=== PATIENT | male | born 1940 | race Caucasian/White ===

== ENCOUNTER 2017-05-02 13:59 | Inpatient (IN) | payer OTHER, MEDICARE ==
[~2017-05-02] VITALS: Ht 175.3 cm; Wt 76.0 kg
--- NOTE | 2017-05-02 14:19 | EMERGENCY ROOM VISIT NOTE ---
History Report prepared by Tye: Sadaf Fisher Under the Supervision of: Dr. Charley Soto M.D. First contact with patient: 14:02 Stated Complaint: DVT??? History of Present Illness The patient is a 60 year old male who presents to the Emergency Room with complaints of a possible DVT. The patient comes from [facility]. Per family, the patient had a Doppler of his right leg at [facility] and was told he had a DVT. The patient fell on April 08 was sent to [facility] for 10 days for a traumatic eye injury and a brain bleed. After the 10 days at [facility], the patient was sent to [facility] for rehab. The patient has been at [facility] two weeks. Per family, when the patient fell he hit his eye on a metal object and then hit his head on the ground. The patient's family believes his oxygen usually runs low and they report he has no respiratory history. The patient has a history of neuropathy. Family reports the patient has not been very responsive since his fall and brain bleed. History limited secondary to the patient's mental status. Review of lab work from April 13 show normal liver enzymes. Source of History: family History Limited By: other (nonresponsive) Position: leg (right) Quality: other (DVT) Timing: other (possible) Review of Systems ROS limited secondary to the patient's mental status. Past Medical & Surgical Medical Problems: (1) BPH (benign prostatic hyperplasia) (2) Depression (3) DM type 2 (diabetes mellitus, type 2) (4) Fracture of sphenoid bone (5) HTN (hypertension) (6) Hyphema, right eye (7) Intracranial hemorrhage following injury (8) Neuropathy (9) Right orbital fracture Surgical Problems: (1) H/O laminectomy (2) History of orchiectomy, unilateral (3) S/P repair of paraesophageal hernia Family History Patient reports no known family medical history. Social History Alcohol Use: heavy Marital Status: Housing Status: lives with family, other ([facility]) Occupation Status: retired Current/Historical Medications Scheduled Allopurinol (Allopurinol), 300 MG PO DAILY Atorvastatin (Lipitor), 40 MG PO QPM Docusate Sodium (Docusate Sodium), 100 MG PO BID Gabapentin (Neurontin), 100 MG PO Q8 Levothyroxine Sodium (Synthroid), 25 MCG PO DAILY Lisinopril (Zestril), 40 MG PO DAILY Melatonin (Melatonin), 5 MG PO QPM Metoprolol Succinate (Toprol Xl), 50 MG PO DAILY Neomycin/Polymyxin/Dexameth Oph (Maxitrol Oph), 1 APPLN OPR QID Phenytoin Sodium Extended (Dilantin), 150 MG PO Q8 Tamsulosin Hcl (Flomax), 0.4 MG PO HS Thiamine Hcl (Vitamin B-1), 50 MG PO QDB Scheduled PRN Acetaminophen (Tylenol), 500 MG PO Q4 PRN for Pain Bisacodyl (Bisacodyl), 1 SUPP NJ DAILY PRN for Constipation Magnesium Hydroxide (Milk of Magnesia), 30 ML PO DAILY PRN for Constipation Oxycodone HCl (Oxycodone HCl), 5 MG PO Q4 PRN for Pain Polyethylene Glycol 3350 (Miralax), 17 GM PO QDL PRN for Constipation Sodium Phosphates (Fleet Enema Six Pack), 1 DOSE NJ DAILY PRN for Constipation Allergies Coded Allergies: No Known Allergies (Unverified , 05/02/17) Physical Exam Vital Signs Date Time Temp Pulse Resp B/P (MAP) Pulse Ox O2 Delivery O2 Flow Rate FiO2 05/02/17 18:28 85 05/02/17 18:24 79 18 138/78 95 Room Air 05/02/17 17:11 87 23 148/95 100 Room Air 05/02/17 14:47 37.7 05/02/17 14:26 36.9 88 16 132/82 96 Room Air 05/02/17 14:13 88 Physical Exam Vital signs reviewed. General: Chronically ill-appearing male, in no significant distress. HEENT: Eye patch to right eye with significant trauma to the lid that is healing , neck supple. Atraumatic. Cardiovascular: Regular rate and rhythm, no extra sounds. Pulmonary: Clear to auscultation bilaterally, normal work of breathing. Abdomen: Soft, nontender, nondistended, positive bowel sounds. Musculoskeletal: Atraumatic, no peripheral edema. Bilateral lower extremity are without heat or swelling Neurologic: Patient awake and occasionally answers simple questions, otherwise remains quiet. Skin: Warm, dry, no rash Medical Decision & Procedures ER Provider Diagnostic Interpretation: Radiology results as stated below per my review and radiologist interpretation: CHEST ONE VIEW PORTABLE FINDINGS: Incidental note is made of severe osteoarthritis of the left glenohumeral joint with narrowing of the subacromial space. Lung volumes are mildly diminished. No pneumothorax or pleural effusion is identified. No consolidation is identified. Patient is mildly rotated. Cardiomediastinal silhouette is unremarkable. There is no evidence of pulmonary edema. IMPRESSION: No acute cardiopulmonary findings. Electronically signed by: eMlecio Blanco M.D. CT SCAN OF THE BRAIN WITHOUT IV CONTRAST FINDINGS: Brain parenchyma: Low-attenuation is identified within the right frontal lobe posterior to the right orbit. There are age-related involutional changes noting mild subcortical and periventricular microangiopathic change. There is no hemorrhage, mass effect, or evidence of acute territorial ischemia by CT criteria. Henderson-white matter is preserved. No extra-axial fluid collection is seen. Ventricles, sulci, cisterns: Prominent secondary to involutional change. Intracranial vasculature: There is atherosclerotic calcification of the cavernous carotid and vertebral arteries. Calvarium: The skeletal structures are osteopenic. No depressed calvarial fracture is seen. Sinuses and mastoids: Trace mucosal thickening is seen in the left maxillary antrum and the ethmoid sinuses. The remaining visualized paranasal sinuses are clear. The mastoid air cells are well pneumatized. Orbits: There is an age indeterminant and possibly subacute comminuted fracture of the left orbit with posteriorly displaced fragments. The left bony orbit is grossly intact. IMPRESSION: 1. There is no hemorrhage, mass effect, or evidence of acute territorial ischemia by CT criteria. 2. There is an age indeterminant and possibly subacute comminuted fracture of the right posterior orbit with posteriorly distracted fragments. 3. There is low-attenuation identified within the right frontal lobe posterior to the right orbit, likely representing encephalomalacia. Correlation with the clinical findings and medical history will be required. Electronically signed by: Jeff Chamberlain M.D. BILIARY ULTRASOUND CLINICAL HISTORY: Elevated liver enzymes. History of ethanol abuse. COMPARISON STUDY: No previous studies for comparison. FINDINGS: The pancreas was nonvisualized. The gallbladder was difficult to visualize. No definite calculi were delineated. There is no right-sided hydronephrosis. There is renal cortical thinning. The liver is of increased echogenicity with poor through transmission. The study was very limited from a technical standpoint. The patient was uncooperative and would not perform breath-hold maneuvers or roll into the decubitus position IMPRESSION: 1. Significantly limited study from a technical standpoint. 2. Nonvisualization of the pancreas 3. Poorly visualized gallbladder but no calculi identified 4. No ductal dilatation Electronically signed by: Lion Britt M.D. ULTRASOUND VENOUS DOPPLER LWR EXT BILA FINDINGS: On the left, no thrombus is visualized. The common femoral superficial femoral popliteal and proximal trifurcation veins appear patent. On the right. The common femoral and superficial femoral veins appear patent. There is nonocclusive thrombus within the popliteal vein. There is occlusive thrombus within the posterior tibial and peroneal veins of the right calf. IMPRESSION: 1. Acute right lower extremity DVT with involvement of the popliteal vein, posterior tibial vein, and peroneal veins. Electronically signed by: Lion Britt M.D. Laboratory Results Test 05/02/17 14:30 05/02/17 15:28 05/02/17 15:37 Influenza Type A Antigen Neg for Influ A (NEG) Influenza Type B Antigen Neg for Influ B (NEG) Prothrombin Time 10.7 SECONDS (9.0-12.0) Prothromb Time International Ratio 1.0 (0.9-1.1) Magnesium Level 2.3 mg/dl (1.8-2.4) Direct Bilirubin 0.1 mg/dl (0-0.2) Total Creatine Kinase 42 U/L (39-308) Creatine Kinase MB 1.4 ng/ml (0.5-3.6) Creatine Kinase MB Ratio 3.3 (0-3.0) Troponin I < 0.015 ng/ml (0-0.045) Bedside Lactic Acid Venous 1.49 mmol/L (0.90-1.70) Laboratory results per my review. Medications Administered Medications (Trade) Dose Ordered Sig/Jay Route Start Time Stop Time Status Last Admin Dose Admin Sodium Chloride 500 ml @ 999 mls/hr Q31M STAT IV 05/02/17 16:17 05/02/17 16:47 DC 05/02/17 17:16 999 MLS/HR ECG Indication: weakness Rate (beats per minute): 87 Rhythm: normal sinus Findings: no acute ischemic change, no ectopy ED Course 1403: Past medical records reviewed. The patient was evaluated in room C5. A complete history and physical examination was performed. 1424: I reviewed the patient's case with Dr. Ángel Kasper. 1617: Ordered Sodium Chloride 500 ml @ 999 mls/hr IV 1634: Bedside discussion with the patient's family. Per , prior to his fall , the patient would drink a beer and 2-4 mixed drinks a night. Review of lab work from April 13 show normal liver enzymes. 172: I reviewed the patient's case with Jessica Araiza. She will evaluate the patient for further management. Medical Decision DDx: Influenza, other viral illness, pneumonia, urinary tract infection, metabolic abnormality, medication effect, cellulitis, meningitis, intra-abdominal source. This patient was evaluated and appeared to be in no significant distress. Patient is not responsive verbally however will state that he has "had better days." The patient's physical exam is significant for healing trauma to the face. Head CT reveals no evidence of acute intracranial hemorrhage. Right lower extremity ultrasound is significant for DVT. Patient has no signs of a central PE. Vital signs are stable and he is oxygenating well. Chest x-ray is clear. The patient is noted to have elevated liver enzymes which according to previous laboratory work obtained from the outside facility, is new. Patient does have some reported alcohol dependency according to his . Ultrasound of right upper quadrant is read as above. There is no evidence of acute process. Due to the patient's recent head trauma, no anticoagulation will be started in the emergency department. Patient may require an IVC filter if anticoagulation is not an option. The internal medicine service has been consulted for further management. The patient and family are aware of the plan and agree. Medication Reconcilliation Current Medication List: was personally reviewed by me Blood Pressure Screening Patient's blood pressure: Elevated blood pressure Blood pressure disposition: Referred to PCP (evaluated by hospitalist) Consults Time Called: 1422 Consulting Physician: Dr. Ángel Kasper Returned Call: 1424 I reviewed the patient's case with Dr. Ángel Kasper. Additional Consults: Time Called: 1721 Consulted Physician: Jessica Araiza Returned Call: 1726 Additional Comments: I reviewed the patient's case with Jessica Araiza. She will evaluate the patient for further management. Impression Primary Impression: DVT (deep venous thrombosis) Additional Impressions: History of intracranial hemorrhage Elevated liver enzymes Scribe Attestation The scribe's documentation has been prepared under my direction and personally reviewed by me in its entirety. I confirm that the note above accurately reflects all work, treatment, procedures, and medical decision making performed by me. Departure Information Dispostion Being Evaluated By Hospitalist Problem Qualifiers
--- NOTE | 2017-05-02 14:50 | DIAGNOSTIC IMAGING REPORT ---
CHEST ONE VIEW PORTABLE CLINICAL HISTORY: Fever. COMPARISON STUDY: No previous studies for comparison. FINDINGS: Incidental note is made of severe osteoarthritis of the left glenohumeral joint with narrowing of the subacromial space. Lung volumes are mildly diminished. No pneumothorax or pleural effusion is identified. No consolidation is identified. Patient is mildly rotated. Cardiomediastinal silhouette is unremarkable. There is no evidence of pulmonary edema. IMPRESSION: No acute cardiopulmonary findings. Electronically signed by: Melecio Blanco M.D. 05/02/2017 2:49 PM Dictated Date/Time: 05/02/2017 2:48 PM
[2017-05-02] MEDS ORDERED: METO-217 PO (15:43)
[2017-05-02] MEDS ORDERED: LISI-725 PO (15:43)
[2017-05-02] MEDS ORDERED: RXC5 PO (15:43)
[2017-05-02] MEDS ORDERED: ACET-1256 PO (15:43)
[2017-05-02] MEDS ORDERED: GABA-112 PO ×2 (15:43→19:21)
[2017-05-02] MEDS ORDERED: MOMLX PO (15:43)
[2017-05-02] MEDS ORDERED: ALL300 PO (15:43)
[2017-05-02] MEDS ORDERED: SENN-65 PO (15:43)
[2017-05-02] MEDS ORDERED: PHEN-310 PO (15:43)
[2017-05-02] MEDS ORDERED: LEVO25TA PO (15:43)
[2017-05-02] MEDS ORDERED: SODI1ENE PR (15:43)
[2017-05-02] MEDS ORDERED: ATOR-24 PO (15:43)
[2017-05-02] MEDS ORDERED: TAMS0.4C38 PO (15:43)
[2017-05-02] MEDS ORDERED: BISA10SU5 PR (15:43)
[2017-05-02] MEDS ORDERED: MELA1TAB54 PO (15:43)
[2017-05-02] MEDS ORDERED: POLY335019 PO (15:43)
[2017-05-02] MEDS ORDERED: CLC100X PO (15:43)
[2017-05-02] MEDS ORDERED: THIA100T11 PO (15:43)
[2017-05-02] MEDS ORDERED: AMT25 PO (15:44)
[2017-05-02 15:52] LABS: BASO % 0.7 %; BASO ABS # 0.03 K/uL (0-0.2); EOS ABS # 0.04 K/uL (0-0.5); HEMOGLOBIN 12.8 g/dL (14.0-18.0); IG# 0.06 K/uL (0.00-0.02); LYMPH ABS # 0.81 K/uL (1.2-3.4); MEAN CELL VOLUME 95.4 fL (80-100); MEAN CORPUSCULAR HGB CONC 34.6 g/dl (32-36); MEAN PLATELET VOLUME 9.5 fL (7.4-10.4); MONO % 11.1 %; MONO ABS # 0.45 K/uL (0.11-0.59); NEUT % 65.7 %; NEUT ABS # 2.65 K/uL (1.4-6.5); PLATELET COUNT 151 K/uL (130-400); RED CELL DISTRIBUTION WIDTH CV 12.9 % (11.5-14.5); RED CELL DISTRIBUTION WIDTH SD 44.4 fL (36.4-46.3); WHITE BLOOD COUNT 4.04 K/uL (4.8-10.8)
--- NOTE | 2017-05-02 15:58 | DIAGNOSTIC IMAGING REPORT ---
CT SCAN OF THE BRAIN WITHOUT IV CONTRAST CLINICAL HISTORY: Head injury. COMPARISON STUDY: No priors. TECHNIQUE: Unenhanced axial CT scan of the brain is performed from the vertex to the skull base. A dose lowering technique was utilized adhering to the principles of ALARA. CT DOSE: 712.55 mGy.cm FINDINGS: Brain parenchyma: Low-attenuation is identified within the right frontal lobe posterior to the right orbit. There are age-related involutional changes noting mild subcortical and periventricular microangiopathic change. There is no hemorrhage, mass effect, or evidence of acute territorial ischemia by CT criteria. Henderson-white matter is preserved. No extra-axial fluid collection is seen. Ventricles, sulci, cisterns: Prominent secondary to involutional change. Intracranial vasculature: There is atherosclerotic calcification of the cavernous carotid and vertebral arteries. Calvarium: The skeletal structures are osteopenic. No depressed calvarial fracture is seen. Sinuses and mastoids: Trace mucosal thickening is seen in the left maxillary antrum and the ethmoid sinuses. The remaining visualized paranasal sinuses are clear. The mastoid air cells are well pneumatized. Orbits: There is an age indeterminant and possibly subacute comminuted fracture of the left orbit with posteriorly displaced fragments. The left bony orbit is grossly intact. IMPRESSION: 1. There is no hemorrhage, mass effect, or evidence of acute territorial ischemia by CT criteria. 2. There is an age indeterminant and possibly subacute comminuted fracture of the right posterior orbit with posteriorly distracted fragments. 3. There is low-attenuation identified within the right frontal lobe posterior to the right orbit, likely representing encephalomalacia. Correlation with the clinical findings and medical history will be required. Electronically signed by: Jeff Chamberlain M.D. 05/02/2017 3:57 PM Dictated Date/Time: 05/02/2017 3:48 PM
[2017-05-02 16:00] LABS: PTT PATIENT 27.2 SECONDS (21.0-31.0)
[2017-05-02 16:01] LABS: ALBUMIN 2.8 gm/dl (3.4-5.0); ALT/SGPT 165 U/L (12-78); AST/SGOT 147 U/L (15-37); BLOOD UREA NITROGEN 55 mg/dl (7-18); CALCIUM 9.4 mg/dl (8.5-10.1); CARBON DIOXIDE 22 mmol/L (21-32); CREATININE 1.41 mg/dl (0.60-1.40); GLUCOSE 127 mg/dl (70-99); POTASSIUM 4.8 mmol/L (3.5-5.1); SODIUM 129 mmol/L (136-145)
[2017-05-02 16:10] LABS: ALKALINE PHOSPHATASE 208 U/L (45-117); CKMB 1.4 ng/ml (0.5-3.6); TOTAL PROTEIN 7.7 gm/dl (6.4-8.2)
[2017-05-02] MEDS ORDERED: SODIUM CHLORIDE 0.9% 500ML 500 ML IV STA (16:17)
--- NOTE | 2017-05-02 17:03 | DIAGNOSTIC IMAGING REPORT ---
ULTRASOUND VENOUS DOPPLER LWR EXT BILA CLINICAL HISTORY: Leg swelling. Recent trauma. Prolonged hospitalization. COMPARISON STUDY: No previous studies for comparison. FINDINGS: On the left, no thrombus is visualized. The common femoral superficial femoral popliteal and proximal trifurcation veins appear patent. On the right. The common femoral and superficial femoral veins appear patent. There is nonocclusive thrombus within the popliteal vein. There is occlusive thrombus within the posterior tibial and peroneal veins of the right calf. IMPRESSION: 1. Acute right lower extremity DVT with involvement of the popliteal vein, posterior tibial vein, and peroneal veins. Electronically signed by: Lion Britt M.D. 05/02/2017 5:02 PM Dictated Date/Time: 05/02/2017 5:00 PM
--- NOTE | 2017-05-02 17:10 | DIAGNOSTIC IMAGING REPORT ---
BILIARY ULTRASOUND CLINICAL HISTORY: Elevated liver enzymes. History of ethanol abuse. COMPARISON STUDY: No previous studies for comparison. FINDINGS: The pancreas was nonvisualized. The gallbladder was difficult to visualize. No definite calculi were delineated. There is no right-sided hydronephrosis. There is renal cortical thinning. The liver is of increased echogenicity with poor through transmission. The study was very limited from a technical standpoint. The patient was uncooperative and would not perform breath-hold maneuvers or roll into the decubitus position IMPRESSION: 1. Significantly limited study from a technical standpoint. 2. Nonvisualization of the pancreas 3. Poorly visualized gallbladder but no calculi identified 4. No ductal dilatation Electronically signed by: Lion Britt M.D. 05/02/2017 5:08 PM Dictated Date/Time: 05/02/2017 5:06 PM
[2017-05-02] MEDS ORDERED: ACETAMINOPHEN 325 MG TAB PO PRN (18:45)
[2017-05-02] MEDS ORDERED: ONDANSETRON INJ 2 MG/ML 2 ML VIAL IV PRN (18:45)
[2017-05-02] MEDS ORDERED: HEPARIN IV LOW DOSE NO BOLUS SCH (18:54)
[2017-05-02] MEDS ORDERED: HEPARIN 25000 UNIT/500 ML D5W ONE (18:59)
[2017-05-02] MEDS ORDERED: [UNRECOGNIZED DRUG - CODE] OPR (19:21)
[2017-05-02] MEDS ORDERED: POLYETHYLENE (MIRALAX) 17 GM PACK PO PRN (19:30)
[2017-05-02 20:15] VITALS: BP 133/72; PULSE 86; TEMP 37.2; O2SAT 93; BMI 26.0
--- NOTE | 2017-05-02 20:27 | History and Physical ---
History & Physical Date & Time of Service: May 02, 2017 ~ 18:00 Chief Complaint: Evaluate for DVT Primary Care Physician: Harish Ernandez M.D. History of Present Illness 77 year old male who was sent to the ED from [facility] for evaluation of possible DVT. On 04/08/17 patient was intoxicated and fell into a wood stove suffering injury to his right eye. He was also found to have traumatic, IPH right frontal lobe, Scattered Subarachnoid hemorrhage, Subdural Hemorrhage along bifrontal and right temporal regions that extends into right tentorium, and intraventricular Hemorrhage. Patient was treated at [facility]. Patient developed compartment syndrome of the right eye and had to undergo emergent canthotomy. His intracranial bleeding did not require surgical intervention. He was transferred to [facility] on 04/19. Providers there were concerned that he was not progressing in therapy and was also running low grade fevers. There was suspicion for DVT so he was sent to the ED for further evaluation. At the time of my exam, patient reports he is "feeling fair." He does not provide much more history. He does not appear to be in acute distress. Family who is at the bedside reports that his mental status has been waxing and waning since the accident. In the ED, patient is found to have acute right lower extremity DVT with involvement of the popliteal vein, posterior tibial vein, and peroneal veins. He is also found to have elevated LFTs and creatinine. Vitals are stable. Patient was given IVF. 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 (7) Intracranial hemorrhage following injury Status: Chronic (8) Neuropathy Status: Chronic (9) Right orbital fracture Status: Chronic Surgical Problems: (1) H/O laminectomy Status: Chronic (2) History of orchiectomy, unilateral Status: Chronic (3) S/P repair of paraesophageal hernia Status: Chronic Family History FH: lymphoma MOTHER Renal cancer BROTHER Social History Smoking Status: Former Smoker Alcohol Use: heavy (former) Immunizations History of Influenza Vaccine: Yes Influenza Vaccine Date: Apr 07, 2017 History of Tetanus Vaccine?: Yes Tetanus Immunization Date: Apr 08, 2017 History of Pneumococcal: Yes Pneumococcal Date: Jul 23, 2015 Allergies Coded Allergies: No Known Allergies (Unverified , 05/02/17) Home Medications Scheduled Allopurinol (Allopurinol), 300 MG PO DAILY Atorvastatin (Lipitor), 40 MG PO QPM Docusate Sodium (Docusate Sodium), 100 MG PO BID Gabapentin (Neurontin), 100 MG PO Q8 Levothyroxine Sodium (Synthroid), 25 MCG PO DAILY Lisinopril (Zestril), 40 MG PO DAILY Melatonin (Melatonin), 5 MG PO QPM Metoprolol Succinate (Toprol Xl), 50 MG PO DAILY Neomycin/Polymyxin/Dexameth Oph (Maxitrol Oph), 1 APPLN OPR QID Phenytoin Sodium Extended (Dilantin), 150 MG PO Q8 Tamsulosin Hcl (Flomax), 0.4 MG PO HS Thiamine Hcl (Vitamin B-1), 50 MG PO QDB Scheduled PRN Acetaminophen (Tylenol), 500 MG PO Q4 PRN for Pain Bisacodyl (Bisacodyl), 1 SUPP FL DAILY PRN for Constipation Magnesium Hydroxide (Milk of Magnesia), 30 ML PO DAILY PRN for Constipation Oxycodone HCl (Oxycodone HCl), 5 MG PO Q4 PRN for Pain Polyethylene Glycol 3350 (Miralax), 17 GM PO QDL PRN for Constipation Sodium Phosphates (Fleet Enema Six Pack), 1 DOSE FL DAILY PRN for Constipation Review of Systems unobtainable due to patient's mental status Physical Exam Vital Signs Date Time Temp Pulse Resp B/P (MAP) Pulse Ox O2 Delivery O2 Flow Rate FiO2 05/02/17 19:47 88 18 106/79 95 Room Air 05/02/17 18:28 85 05/02/17 18:24 79 18 138/78 95 Room Air 05/02/17 17:11 87 23 148/95 100 Room Air 05/02/17 14:47 37.7 05/02/17 14:26 36.9 88 16 132/82 96 Room Air 05/02/17 14:13 88 General Appearance: WD/WN, no apparent distress Head: normocephalic, atraumatic Eyes: + pertinent finding (edema noted to right orbit, patient unable to open eye lid, small amount of drainage noted; left eye WNL) ENT: hearing grossly normal, + pertinent finding (mucous membranes moist) Neck: supple, no JVD, trachea midline Respiratory/Chest: lungs clear, normal breath sounds, no respiratory distress Cardiovascular: regular rate, rhythm, no edema, normal peripheral pulses Abdomen/GI: normal bowel sounds, non tender, soft, no organomegaly Extremities/Musculoskelatal: normal inspection, no calf tenderness, normal capillary refill Neurologic/Psych: alert (falls back to sleep quickly during exam, does not say many words), + disoriented (to time, place, and situation), + pertinent finding (no gross focal deficits noted) Skin: normal color, warm/dry Diagnostics Laboratory Results Results Past 24 Hours Test 05/02/17 14:19 05/02/17 15:28 05/02/17 15:37 Range/Units White Blood Count 4.04 4.8-10.8 K/uL Red Blood Count 3.88 4.7-6.1 M/uL Hemoglobin 12.8 14.0-18.0 g/dL Hematocrit 37.0 42-52 % Mean Corpuscular Volume 95.4 80-100 fL Mean Corpuscular Hemoglobin 33.0 25-34 pg Mean Corpuscular Hemoglobin Concent 34.6 32-36 g/dl Platelet Count 151 130-400 K/uL Mean Platelet Volume 9.5 7.4-10.4 fL Neutrophils (%) (Auto) 65.7 % Lymphocytes (%) (Auto) 20.0 % Monocytes (%) (Auto) 11.1 % Eosinophils (%) (Auto) 1.0 % Basophils (%) (Auto) 0.7 % Neutrophils # (Auto) 2.65 1.4-6.5 K/uL Lymphocytes # (Auto) 0.81 1.2-3.4 K/uL Monocytes # (Auto) 0.45 0.11-0.59 K/uL Eosinophils # (Auto) 0.04 0-0.5 K/uL Basophils # (Auto) 0.03 0-0.2 K/uL RDW Standard Deviation 44.4 36.4-46.3 fL RDW Coefficient of Variation 12.9 11.5-14.5 % Immature Granulocyte % (Auto) 1.5 % Immature Granulocyte # (Auto) 0.06 0.00-0.02 K/uL Prothrombin Time 10.7 9.0-12.0 SECONDS Prothromb Time International Ratio 1.0 0.9-1.1 Activated Partial Thromboplast Time 27.2 21.0-31.0 SECONDS Partial Thromboplastin Ratio 1.0 Sodium Level 129 136-145 mmol/L Potassium Level 4.8 3.5-5.1 mmol/L Chloride Level 99 98-107 mmol/L Carbon Dioxide Level 22 21-32 mmol/L Anion Gap 8.0 3-11 mmol/L Blood Urea Nitrogen 55 7-18 mg/dl Creatinine 1.41 0.60-1.40 mg/dl Est Creatinine Clear Calc Drug Dose 45.3 ml/min Estimated GFR () 56.1 Estimated GFR (Non- 48.4 BUN/Creatinine Ratio 38.8 10-20 Random Glucose 127 70-99 mg/dl Calcium Level 9.4 8.5-10.1 mg/dl Magnesium Level 2.3 1.8-2.4 mg/dl Total Bilirubin 0.3 0.2-1 mg/dl Direct Bilirubin 0.1 0-0.2 mg/dl Aspartate Amino Transf (AST/SGOT) 147 15-37 U/L Alanine Aminotransferase (ALT/SGPT) 165 12-78 U/L Alkaline Phosphatase 208 45-117 U/L Total Creatine Kinase 42 39-308 U/L Creatine Kinase MB 1.4 0.5-3.6 ng/ml Creatine Kinase MB Ratio 3.3 0-3.0 Troponin I < 0.015 0-0.045 ng/ml Total Protein 7.7 6.4-8.2 gm/dl Albumin 2.8 3.4-5.0 gm/dl Bedside Lactic Acid Venous 1.49 0.90-1.70 mmol/L Microbiology Results 05/02/17 Blood Culture, Received Pending 05/02/17 Blood Culture, Received Pending Diagnostic Radiology CXR IMPRESSION: No acute cardiopulmonary findings. CT HEAD IMPRESSION: 1. There is no hemorrhage, mass effect, or evidence of acute territorial ischemia by CT criteria. 2. There is an age indeterminant and possibly subacute comminuted fracture of the right posterior orbit with posteriorly distracted fragments. 3. There is low-attenuation identified within the right frontal lobe posterior to the right orbit, likely representing encephalomalacia. Correlation with the clinical findings and medical history will be required. BLLE DOPPLER IMPRESSION: 1. Acute right lower extremity DVT with involvement of the popliteal vein, posterior tibial vein, and peroneal veins. ABDOMINAL US IMPRESSION: 1. Significantly limited study from a technical standpoint. 2. Nonvisualization of the pancreas 3. Poorly visualized gallbladder but no calculi identified 4. No ductal dilatation Impression Assessment and Plan ACUTE RLE DVT HX TRAUMATIC INTRACRANIAL HEMORRHAGE, RIGHT ORBITAL COMPARTMENT SYNDROME S/P CANTHOTOMY - admit to tele - patient presenting from [facility] for concern of DVT, which was confirmed in the ED - patient with recent traumatic head injury - head CT preformed in the ED negative for signs of bleeding - on phenytoin for seizure prophylaxis - case was discussed with Dr. Tafoya (neurosurgery) at [facility] - given negative head CT, bleeding risks are considered low - case also discussed with Dr. Palm (ophthalmology) at [facility] - ok to anticoagulate with canthotomy history - likely provoked DVT from recent prolonged hospital and rehab stays - will start low dose IV heparin - monitor very closely for signs of bleeding with frequent neuro checks ELEVATED LFTs - RUQ US negative for acute findings - likely due to recent addition of phenytoin - will have neuro evaluate in the AM for antiepileptic med management CLAUDIA - likely prerenal; family reports appetite has been poor - creat 1.4 (baseline 1.0) - IVF - hold lisinopril HTN - BP controlled - continue metoprolol, holding lisinopril due to CLAUDIA GOUT - continue allopurinol BPH - continue tamsulosin DVT PROPHYLAXIS - on heparin gtt DISPO - In my clinical judgment this beneficiary meets acute admission criteria, established by [facility], that includes being hospitalized through two midnights. - PT/OT, case management consults; expect d/c back to [facility] once medically stable ADDENDUM: This is a 77 year old male with a PMH of traumatic intracranial bleed, compartment syndrome of eye s/p surgical intervention Presents from [facility] for concern of DVT patient states his R calf is tender He has difficulty with PT/OT Upon presentation; found to have acute DVT of the R calf Head CT - no acute CVA, no bleeding noted after speaking with neurosurgery at [place] and ophthalmology regarding patient 's condition; decided that he was low risk for re-bleeding and that we can start IV heparin. monitor in tele neurochecks noted to have elevated LFTs, possibly from recent addition of Dilantin Neurology consulted for further input. VTE Prophylaxis VTE Risk Assessment Done? Y/N: Yes Risk Level: Moderate
[2017-05-02] MEDS: SODIUM CHLORIDE 0.9% 1000ML 1,000 ML IV SCH (20:39)
[2017-05-02] MEDS: DOCUSATE SODIUM 100 MG CAP PO SCH (21:00)
[2017-05-02] MEDS: GABAPENTIN 100 MG CAP PO SCH (21:08)
[2017-05-02] MEDS: POLYMYX OPR SCH (21:08)
[2017-05-02] MEDS: NEOMYCIN OPR SCH (21:08)
[2017-05-02] MEDS: DEXAMETH OP OPR SCH (21:08)
[2017-05-02] MEDS: TAMSULOSIN HCL 0.4 MG CAP PO SCH (21:09)
[2017-05-02] MEDS: PHENYTOIN SODIUM ER 30 MG CAP PO SCH (21:12)
[2017-05-02] MEDS: HEPARIN 25,000 UNIT/500ML D5W 500 ML IV PRN (22:56)
[2017-05-02 23:30] VITALS: O2SAT 93
[2017-05-02 23:44] LABS: INFLUENZA B ANTIGEN Neg for Influ B (NEG)
[2017-05-03] VITALS (11 sets, daily range): BP systolic 118–137; BP diastolic 75–81; PULSE 80–88; TEMP 36.2–36.9; O2SAT 92–100
[2017-05-03 01:31] LABS: PTT PATIENT 58.3 SECONDS (21.0-31.0)
[2017-05-03] MEDS: PHENYTOIN SODIUM ER 30 MG CAP PO SCH (05:45)
[2017-05-03] MEDS: LEVOTHYROXINE 25 MCG TAB PO SCH (05:45)
[2017-05-03] MEDS: GABAPENTIN 100 MG CAP PO SCH ×3 (05:45→20:37)
[2017-05-03 07:28] LABS: HEMATOCRIT 32.8 % (42-52); HEMOGLOBIN 11.3 g/dL (14.0-18.0); MEAN CORPUSCULAR HEMOGLOBIN 32.4 pg (25-34); MEAN CORPUSCULAR HGB CONC 34.5 g/dl (32-36); MEAN PLATELET VOLUME 9.2 fL (7.4-10.4); PLATELET COUNT 128 K/uL (130-400); RED CELL DISTRIBUTION WIDTH CV 12.6 % (11.5-14.5); RED CELL DISTRIBUTION WIDTH SD 42.9 fL (36.4-46.3); WHITE BLOOD COUNT 3.49 K/uL (4.8-10.8)
[2017-05-03] MEDS: ALLOPURINOL 300 MG TAB PO SCH (07:50)
[2017-05-03] MEDS: METOPROLOL SUCC 50MG EXT REL TAB PO SCH (07:50)
[2017-05-03] MEDS: DOCUSATE SODIUM 100 MG CAP PO SCH (07:50)
[2017-05-03] MEDS: POLYMYX OPR SCH ×4 (07:51→20:36)
[2017-05-03] MEDS: NEOMYCIN OPR SCH ×4 (07:51→20:36)
[2017-05-03] MEDS: DEXAMETH OP OPR SCH ×4 (07:51→20:36)
[2017-05-03] MEDS: THIAMINE HCL 100 MG TAB PO SCH (07:51)
[2017-05-03] MEDS ORDERED: PNEUMOCOCCAL ADMINISTRATION CHARGE ONE (08:00)
[2017-05-03] MEDS ORDERED: PNEUMOCOCCAL POLYSACCHARIDES 25 MCG/0.5 ML VIAL/SYR IM. ONE (08:00)
[2017-05-03] MEDS ORDERED: INFLUENZA ADMINISTRATION CHARGE ONE (08:00)
[2017-05-03] MEDS ORDERED: INFLUENZA VACCINE HIGH DOSE 65+ 0.5 ML SYR IM. ONE (08:00)
[2017-05-03] MEDS: SODIUM CHLORIDE 0.9% 1000ML 1,000 ML IV SCH ×2 (08:03→20:36)
[2017-05-03 08:07] LABS: ALBUMIN 2.4 gm/dl (3.4-5.0); CALCIUM 8.9 mg/dl (8.5-10.1); CREATININE 0.88 mg/dl (0.60-1.40); POTASSIUM 3.9 mmol/L (3.5-5.1); TOTAL PROTEIN 6.5 gm/dl (6.4-8.2)
[2017-05-03 08:15] LABS: BASO % 0.9 %; BASO ABS # 0.03 K/uL (0-0.2); EOS % 2.6 %; EOS ABS # 0.09 K/uL (0-0.5); IG# 0.03 K/uL (0.00-0.02); LYMPH % 27.8 %; LYMPH ABS # 0.97 K/uL (1.2-3.4); MONO % 11.7 %; MONO ABS # 0.41 K/uL (0.11-0.59); NEUT % 56.1 %; NEUT ABS # 1.96 K/uL (1.4-6.5)
--- NOTE | 2017-05-03 09:23 | Clinical Documentation Query ---
Dr. [facility] : CLINICAL DOCUMENTATION QUERY Patient is a 77 year old male who presented for evaluation and treatment of acute RLE DVT. Serum sodium on admission of 129 mmol/L. Patient is recieving IV NSS at 80 ml/hr. Repeat testing this a.m. (05/03) demonstrated an improved value of 134 mmol/L. As appropriate, consider documentation of this condition as below in order to capture the appropriate SOI and ROM. Thank you. In your clinical opinion is this patient being managed for: ( x ) Hyponatremia, POA, (resolved/resolving) ( ) Not Agree ( ) Other explanation of clinical findings (Please Explain) ( ) Unable to determine (Please Define) ( ) Need to Discuss The medical record reflects the following clinical findings, treatment, and risk factors. Clinical Indicators: As above Treatment: IV NSS, serial chemistries Risk Factors: Age, dehydration, poor intake, medications Please clarify and document your clinical opinion in the progress notes and discharge summary. Terms such as "probable", "suspected", "likely", "questionable", "possible", or "still to be ruled out" are acceptable. IF IN AGREEMENT, YOU MUST DOCUMENT ABOVE DIAGNOSTIC STATEMENT IN DAILY PROGRESS NOTES AND DISCHARGE SUMMARY. This document is not part of the patient's record. Thank You, Rocael Menjivar, DONALD [phone]
--- NOTE | 2017-05-03 12:06 | Progress Note ---
Internal Med Progress Note Date of Service: May 03, 2017. Provider Documentation: SUBJECTIVE: offers no complain of headache , no sob or chest pain vitals remains stable ,no hypoxia noted pt appears to be forgetful does not remember the reason for admission to [facility] denies of any pain or discomfort on lower ext has been on Iv heparin since yesterday evening , no bleeding episode , worsening of headache or neurological changes noted and daughter present at bedside -updated OBJECTIVE: Vital Signs-as noted below Exam: General-elderly male, no apparent distress Eyes-Rt eyelid markedly ecchymotic, suture noted at the inner canthus , no discharge noted ENT-moist oral mucosa Neck-trachea midline ,no thyromegaly Lungs-clear to auscultate, no wheeze or rales Heart-regular s1/s2, no JVD , no carotid bruit , no lower ext edema Abdomen-soft, non tender , bowel sound present Extremities-no ankle edema noted , +swelling on inner aspect of rt popliteal area , + pedal pulse Neuro-awake and alert, forgetful, slow to process information , no focal weakness noted Lab data as noted below. ASSESSMENT & PLAN: ACUTE RLE DVT HX TRAUMATIC INTRACRANIAL HEMORRHAGE, RIGHT ORBITAL COMPARTMENT SYNDROME S/P CANTHOTOMY - likely provoked DVT from recent prolonged hospital and rehab stays - patient sent from [facility] for concern of DVT, lower ext Doppler shows : - hx of recent traumatic head injury on 04/08/17 s/p fall leading to rt orbital fx , optic neuropathy, severe compartment syndrome leading to lateral canthotomy and craniotomy to reduce intra ocular pressure in [facility] in [place] pt had a prolong hospital stay from 04/08/17 to 04/19/17 -transferred to [facility] for rehab - head CT preformed in the ED negative for signs of bleeding -per Admitting team : - case was discussed with Dr. Tafoya (neurosurgery) at [facility] - given negative head CT, bleeding risks are considered low - case also discussed with Dr. Palm (ophthalmology) at [facility] - ok to anticoagulate with canthotomy history - - pt started low dose IV heparin - monitor very closely for signs of bleeding with frequent neuro checks will need repeat Ct head check with any evidence of headache or neurological change Risk and benefit for anticoagulation discussed in detail with Family _daughter and pt was unable to participate in discussion as could not comprehend the informations Given pt's risk for bleeding and fall risk ( had gait disturbance earlier due to Neuropathy worsened after intracranial trauma ) provoked DVt due to prolong immobilization /hospital admission , no pharmacological anticoagulation given due to intracranial hge tx for 3 months with anticoagulation will be safe given no bleeding episode happens during that period pt is on IV heparin , plan to start on PO Coumadin as liver function improves if any bleeding episode occurs -anticoagulation has to be reveres and will need vascular procedure -IVC filter placement ELEVATED LFTs mild improvement with IVF - RUQ US negative for acute findings was started on phenytoin 150 mg TID for seizure prophylaxis - likely due to recent addition of phenytoin ordered to hold Dilantin , ordered for level to be checked neurology consult requested , pt will benefit with different anti seizure med for prophylaxis Coumadin anticoagulation can not be started till LFT normalizes GI consulted CLAUDIA - likely prerenal; family reports appetite has been poor - creat 1.4 (baseline 1.0) improved to baseline 0.88 - cont IVF - Resume lisinopril 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 Na improved with IVF NSS cont to monitor PRP HTN - BP controlled - continue metoprolol, lisinopril GOUT - continue allopurinol BPH - continue tamsulosin FULL CODE DVT PROPHYLAXIS IV heparin DISPOSITION was at [facility] for acute rehab post intracranial trauma /orbital Fx Cont PT/OT plan to return back to to complete rehab when medically stable Vital Signs: Date Time Temp Pulse Resp B/P (MAP) Pulse Ox O2 Delivery O2 Flow Rate FiO2 05/03/17 11:13 36.7 80 18 128/80 (96) 93 Room Air 05/03/17 08:00 96 Room Air 05/03/17 08:00 Room Air 05/03/17 07:54 36.9 88 18 134/78 (96) 96 Room Air 05/03/17 04:23 36.7 86 18 137/79 (98) 95 Room Air 05/03/17 04:00 93 Room Air 05/03/17 00:38 36.8 84 19 135/81 (99) 100 Room Air 05/02/17 23:30 93 Room Air 05/02/17 20:15 37.2 86 18 133/72 Room Air 05/02/17 20:15 93 Room Air 05/02/17 19:47 88 18 106/79 95 Room Air 05/02/17 18:28 85 05/02/17 18:24 79 18 138/78 95 Room Air 05/02/17 17:11 87 23 148/95 100 Room Air 05/02/17 14:47 37.7 05/02/17 14:26 36.9 88 16 132/82 96 Room Air 05/02/17 14:13 88 Lab Results: Results Past 24 Hours Test 05/02/17 14:30 05/02/17 15:28 05/02/17 15:37 05/02/17 21:47 Range/Units Influenza Type A Antigen Neg for Influ A NEG Influenza Type B Antigen Neg for Influ B NEG White Blood Count 4.04 4.8-10.8 K/uL Red Blood Count 3.88 4.7-6.1 M/uL Hemoglobin 12.8 14.0-18.0 g/dL Hematocrit 37.0 42-52 % Mean Corpuscular Volume 95.4 80-100 fL Mean Corpuscular Hemoglobin 33.0 25-34 pg Mean Corpuscular Hemoglobin Concent 34.6 32-36 g/dl Platelet Count 151 130-400 K/uL Mean Platelet Volume 9.5 7.4-10.4 fL Neutrophils (%) (Auto) 65.7 % Lymphocytes (%) (Auto) 20.0 % Monocytes (%) (Auto) 11.1 % Eosinophils (%) (Auto) 1.0 % Basophils (%) (Auto) 0.7 % Neutrophils # (Auto) 2.65 1.4-6.5 K/uL Lymphocytes # (Auto) 0.81 1.2-3.4 K/uL Monocytes # (Auto) 0.45 0.11-0.59 K/uL Eosinophils # (Auto) 0.04 0-0.5 K/uL Basophils # (Auto) 0.03 0-0.2 K/uL RDW Standard Deviation 44.4 36.4-46.3 fL RDW Coefficient of Variation 12.9 11.5-14.5 % Immature Granulocyte % (Auto) 1.5 % Immature Granulocyte # (Auto) 0.06 0.00-0.02 K/uL Prothrombin Time 10.7 9.0-12.0 SECONDS Prothromb Time International Ratio 1.0 0.9-1.1 Activated Partial Thromboplast Time 27.2 21.0-31.0 SECONDS Partial Thromboplastin Ratio 1.0 Sodium Level 129 136-145 mmol/L Potassium Level 4.8 3.5-5.1 mmol/L Chloride Level 99 98-107 mmol/L Carbon Dioxide Level 22 21-32 mmol/L Anion Gap 8.0 3-11 mmol/L Blood Urea Nitrogen 55 7-18 mg/dl Creatinine 1.41 0.60-1.40 mg/dl Est Creatinine Clear Calc Drug Dose 45.3 ml/min Estimated GFR () 56.1 Estimated GFR (Non- 48.4 BUN/Creatinine Ratio 38.8 10-20 Random Glucose 127 70-99 mg/dl Calcium Level 9.4 8.5-10.1 mg/dl Magnesium Level 2.3 1.8-2.4 mg/dl Total Bilirubin 0.3 0.2-1 mg/dl Direct Bilirubin 0.1 0-0.2 mg/dl Aspartate Amino Transf (AST/SGOT) 147 15-37 U/L Alanine Aminotransferase (ALT/SGPT) 165 12-78 U/L Alkaline Phosphatase 208 45-117 U/L Total Creatine Kinase 42 39-308 U/L Creatine Kinase MB 1.4 0.5-3.6 ng/ml Creatine Kinase MB Ratio 3.3 0-3.0 Troponin I < 0.015 0-0.045 ng/ml Total Protein 7.7 6.4-8.2 gm/dl Albumin 2.8 3.4-5.0 gm/dl Bedside Lactic Acid Venous 1.49 0.90-1.70 mmol/L Bedside Glucose 107 70-99 mg/dl Test 05/03/17 00:48 05/03/17 06:57 05/03/17 10:29 05/03/17 11:23 Range/Units Activated Partial Thromboplast Time 58.3 21.0-31.0 SECONDS Partial Thromboplastin Ratio 2.2 White Blood Count 3.49 4.8-10.8 K/uL Red Blood Count 3.49 4.7-6.1 M/uL Hemoglobin 11.3 14.0-18.0 g/dL Hematocrit 32.8 42-52 % Mean Corpuscular Volume 94.0 80-100 fL Mean Corpuscular Hemoglobin 32.4 25-34 pg Mean Corpuscular Hemoglobin Concent 34.5 32-36 g/dl Platelet Count 128 130-400 K/uL Mean Platelet Volume 9.2 7.4-10.4 fL Neutrophils (%) (Auto) 56.1 % Lymphocytes (%) (Auto) 27.8 % Monocytes (%) (Auto) 11.7 % Eosinophils (%) (Auto) 2.6 % Basophils (%) (Auto) 0.9 % Neutrophils # (Auto) 1.96 1.4-6.5 K/uL Lymphocytes # (Auto) 0.97 1.2-3.4 K/uL Monocytes # (Auto) 0.41 0.11-0.59 K/uL Eosinophils # (Auto) 0.09 0-0.5 K/uL Basophils # (Auto) 0.03 0-0.2 K/uL RDW Standard Deviation 42.9 36.4-46.3 fL RDW Coefficient of Variation 12.6 11.5-14.5 % Immature Granulocyte % (Auto) 0.9 % Immature Granulocyte # (Auto) 0.03 0.00-0.02 K/uL Sodium Level 134 136-145 mmol/L Potassium Level 3.9 3.5-5.1 mmol/L Chloride Level 105 98-107 mmol/L Carbon Dioxide Level 19 21-32 mmol/L Anion Gap 10.0 3-11 mmol/L Blood Urea Nitrogen 39 7-18 mg/dl Creatinine 0.88 0.60-1.40 mg/dl Est Creatinine Clear Calc Drug Dose 72.6 ml/min Estimated GFR () 97.4 Estimated GFR (Non- 84.0 BUN/Creatinine Ratio 44.6 10-20 Random Glucose 107 70-99 mg/dl Calcium Level 8.9 8.5-10.1 mg/dl Total Bilirubin 0.3 0.2-1 mg/dl Aspartate Amino Transf (AST/SGOT) 114 15-37 U/L Alanine Aminotransferase (ALT/SGPT) 130 12-78 U/L Alkaline Phosphatase 180 45-117 U/L Total Protein 6.5 6.4-8.2 gm/dl Albumin 2.4 3.4-5.0 gm/dl Globulin 4.1 2.5-4.0 gm/dl Albumin/Globulin Ratio 0.6 0.9-2 Urine Color YELLOW Urine Appearance CLEAR CLEAR Urine pH 5.0 4.5-7.5 Urine Specific [place] 1.017 1.000-1.030 Urine Protein NEG NEG Urine Glucose (UA) NEG NEG Urine Ketones NEG NEG Urine Occult Blood 2+ NEG Urine Nitrite NEG NEG Urine Bilirubin NEG NEG Urine Urobilinogen NEG NEG Urine Leukocyte Esterase NEG NEG Urine WBC (Auto) 0 0-5 /hpf Urine RBC (Auto) 5-10 0-4 /hpf Urine Hyaline Casts (Auto) 1-5 0-5 /lpf Urine Epithelial Cells (Auto) 0-5 0-5 /lpf Urine Bacteria (Auto) NEG NEG Ferritin 1605.0 8.0-388.0 ng/ml Test 05/03/17 12:23 Range/Units Microbiology Results 05/02/17 Blood Culture, Received Pending 05/02/17 Blood Culture, Received Pending
[2017-05-03 13:34] LABS: HEP C IGG 13 YRS+OLDER_RFLX NEG (NEG)
--- NOTE | 2017-05-03 14:16 | Neurology Consultation ---
Neurology Consultation Date of Consultation: May 03, 2017. Attending Physician: Dorothea Zuluaga M.D. Primary Care Physician: Harish Ernandez M.D. Reason for Consultation: seizure medication management History of Present Illness Source: patient Branden is a 77 year old male who was sent to the ED from [facility] for evaluation of possible DVT. 04/08/2017-He was intoxicated and fell into a wood stove suffering injury to his right eye. He was also found to have traumatic, IPH right frontal lobe, Scattered Subarachnoid hemorrhage, Subdural Hemorrhage along bifrontal and right temporal regions that extends into right tentorium, and intraventricular hemorrhage. He was LF from [place] to [place] for management. He also developed compartment syndrome of the right eye and had to undergo emergent canthotomy. There was no surgical intervention for the ICH. On 04/19 he was deems stable and transferred to [facility]. They were concerned that he was not progressing in therapy and was also running low grade fevers. In the ED he was found to have acute right lower extremity DVT with involvement of the popliteal vein, posterior tibial vein, and peroneal veins. He is also found to have elevated LFTs and creatinine. Accord to report his MS has been waxing and weaning since the fall. He also states he fell again and hurt his left shoulder. denies CP, SOB, abdominal pain, weakness, numbness tingling, N, V, Headache. Social History Alcohol Use: heavy (former) Allergies Coded Allergies: No Known Allergies (Unverified , 05/02/17) Current Inpatient Medications Current Inpatient Medications Medications (Trade) Dose Ordered Sig/Jay Route Start Time Stop Time Status Last Admin Dose Admin Acetaminophen (Tylenol Tab) 650 mg Q4H PRN PO 05/02/17 18:45 06/01/17 18:44 Ondansetron HCl (Zofran Inj) 4 mg Q6H PRN IV 05/02/17 18:45 06/01/17 18:44 Sodium Chloride 1,000 ml @ 80 mls/hr [id number] IV 05/02/17 19:15 06/01/17 19:14 05/03/17 08:03 80 MLS/HR Heparin Sodium/ Dextrose 500 ml @ 18 mls/hr Q24H PRN IV 05/02/17 19:30 06/01/17 19:29 05/02/17 22:56 18 MLS/HR Allopurinol (Zyloprim Tab) 300 mg DAILY PO 05/03/17 09:00 06/02/17 08:59 05/03/17 07:50 300 MG Gabapentin (Neurontin Cap) 100 mg Q8 PO 05/02/17 22:00 06/01/17 21:59 05/03/17 13:27 100 MG Levothyroxine Sodium (Synthroid Tab) 25 mcg DAILYBB PO 05/03/17 06:00 06/02/17 06:59 05/03/17 05:45 25 MCG Metoprolol Succinate (Toprol Xl Tab) 50 mg DAILY PO 05/03/17 09:00 06/02/17 08:59 05/03/17 07:50 50 MG Neomycin/ Polymyxin/ Dexamethasone (Maxitrol Oph Oint) 1 appln QID OPR 05/02/17 21:00 06/01/17 20:59 05/03/17 13:27 1 APPLN Oxycodone HCl (Roxicodone Immediate Rel Tab) 5 mg Q4 PRN PO 05/02/17 19:30 05/16/17 19:29 Phenytoin Sodium (Dilantin Er Cap) 150 mg Q8 PO 05/02/17 22:00 06/01/17 21:59 Future Hold 05/03/17 05:45 150 MG Tamsulosin HCl (Flomax Cap) 0.4 mg HS PO 05/02/17 21:00 06/01/17 20:59 05/02/17 21:09 0.4 MG Thiamine HCl (Vitamin B-1 Tab) 50 mg QDB PO 05/03/17 07:30 06/02/17 07:59 05/03/17 07:51 50 MG Polyethylene (Miralax Powder Packet) 17 gm QDL PRN PO 05/02/17 19:30 06/01/17 19:29 Docusate Sodium (coLACE CAP) 100 mg BID PRN PO 05/03/17 21:00 06/01/17 20:59 Levetiracetam (Keppra Tab) 500 mg BID PO 05/03/17 13:45 06/02/17 20:59 UNV Physical Exam Vital Signs (Past 24 Hrs): Date Time Temp Pulse Resp B/P (MAP) Pulse Ox O2 Delivery O2 Flow Rate FiO2 05/03/17 12:10 Room Air 05/03/17 11:13 36.7 80 18 128/80 (96) 93 Room Air 05/03/17 08:00 96 Room Air 05/03/17 08:00 Room Air 05/03/17 07:54 36.9 88 18 134/78 (96) 96 Room Air 05/03/17 04:23 36.7 86 18 137/79 (98) 95 Room Air 05/03/17 04:00 93 Room Air 05/03/17 00:38 36.8 84 19 135/81 (99) 100 Room Air 05/02/17 23:30 93 Room Air 05/02/17 20:15 37.2 86 18 133/72 Room Air 05/02/17 20:15 93 Room Air 05/02/17 19:47 88 18 106/79 95 Room Air 05/02/17 18:28 85 05/02/17 18:24 79 18 138/78 95 Room Air 05/02/17 17:11 87 23 148/95 100 Room Air 05/02/17 14:47 37.7 05/02/17 14:26 36.9 88 16 132/82 96 Room Air 05/02/17 14:13 88 Physical Exam: Constitutional:appearance nourished Ears, Nose, Mouth and Throat: mucous membranes moist, no injection and skin normal, eyes normal Cardiovascular: normal S-1 and S-2 and regular rate and rhythm Respiratory: clear to auscultation (CTA) and no rales, rhonchi or wheeze Musculoskeletal: no peripheral edema and decreased distal pulses Skin: no stigmata of neurocutaneous disease noted and normal and intact Eyes: extraocular muscles intact (EOMI) and pupils equal, round and reactive to light (PERRL), right eye lid droop and laceration, gross vision limited NEUROLOGIC EXAMINATION: Mental status: Alert and interactive Oriented to hospital but does not know which one, does not know month, year or season, even when told it is April he states it is early spring Oriented to person Speech fluent with no evidence of aphasia Cranial Nerves smile symmetric, right eye lid lag, able to raise minimally. Reflexes: Deep tendon reflexes were symmetrical and graded 2/5. Sensory: decreased sensation to light touch, vibration to ankle, GT proprioception absent bilaterally Coordination: finger to nose without bi pass Gait/Stance: Posture sitting up in chair Motor: Negative for pronator drift of out stretched arms with eyes closed. Strength: biceps triceps hand stamp pad finisher 4+/5 bilaterally deltoid decreased on left due to pain. hip flex 4+/5 bilaterally Laboratory Results Past 24 Hours: 05/03/17 06:57 Red Blood Count 3.49, Mean Corpuscular Volume 94.0, Mean Corpuscular Hemoglobin 32.4, Mean Corpuscular Hemoglobin Concent 34.5, Mean Platelet Volume 9.2, Neutrophils (%) (Auto) 56.1, Lymphocytes (%) (Auto) 27.8, Monocytes (%) (Auto) 11.7, Eosinophils (%) (Auto) 2.6, Basophils (%) (Auto) 0.9, Neutrophils # (Auto ) 1.96, Lymphocytes # (Auto) 0.97, Monocytes # (Auto) 0.41, Eosinophils # (Auto ) 0.09, Basophils # (Auto) 0.03 05/03/17 06:57 Test 05/02/17 14:30 05/02/17 15:28 05/02/17 15:37 05/02/17 21:47 Influenza Type A Antigen Neg for Influ A (NEG) Influenza Type B Antigen Neg for Influ B (NEG) Prothrombin Time 10.7 SECONDS (9.0-12.0) Prothromb Time International Ratio 1.0 (0.9-1.1) Magnesium Level 2.3 mg/dl (1.8-2.4) Direct Bilirubin 0.1 mg/dl (0-0.2) Total Creatine Kinase 42 U/L (39-308) Creatine Kinase MB 1.4 ng/ml (0.5-3.6) Creatine Kinase MB Ratio 3.3 (0-3.0) Troponin I < 0.015 ng/ml (0-0.045) Bedside Lactic Acid Venous 1.49 mmol/L (0.90-1.70) Bedside Glucose 107 mg/dl (70-99) Test 05/03/17 00:48 05/03/17 06:57 05/03/17 10:29 05/03/17 11:23 Activated Partial Thromboplast Time 58.3 SECONDS (21.0-31.0) Partial Thromboplastin Ratio 2.2 White Blood Count 3.49 K/uL (4.8-10.8) Red Blood Count 3.49 M/uL (4.7-6.1) Hemoglobin 11.3 g/dL (14.0-18.0) Hematocrit 32.8 % (42-52) Mean Corpuscular Volume 94.0 fL (80-100) Mean Corpuscular Hemoglobin 32.4 pg (25-34) Mean Corpuscular Hemoglobin Concent 34.5 g/dl (32-36) Platelet Count 128 K/uL (130-400) Mean Platelet Volume 9.2 fL (7.4-10.4) Neutrophils (%) (Auto) 56.1 % Lymphocytes (%) (Auto) 27.8 % Monocytes (%) (Auto) 11.7 % Eosinophils (%) (Auto) 2.6 % Basophils (%) (Auto) 0.9 % Neutrophils # (Auto) 1.96 K/uL (1.4-6.5) Lymphocytes # (Auto) 0.97 K/uL (1.2-3.4) Monocytes # (Auto) 0.41 K/uL (0.11-0.59) Eosinophils # (Auto) 0.09 K/uL (0-0.5) Basophils # (Auto) 0.03 K/uL (0-0.2) RDW Standard Deviation 42.9 fL (36.4-46.3) RDW Coefficient of Variation 12.6 % (11.5-14.5) Immature Granulocyte % (Auto) 0.9 % Immature Granulocyte # (Auto) 0.03 K/uL (0.00-0.02) Anion Gap 10.0 mmol/L (3-11) Est Creatinine Clear Calc Drug Dose 72.6 ml/min Estimated GFR () 97.4 Estimated GFR (Non- 84.0 BUN/Creatinine Ratio 44.6 (10-20) Calcium Level 8.9 mg/dl (8.5-10.1) Total Bilirubin 0.3 mg/dl (0.2-1) Aspartate Amino Transf (AST/SGOT) 114 U/L (15-37) Alanine Aminotransferase (ALT/SGPT) 130 U/L (12-78) Alkaline Phosphatase 180 U/L (45-117) Total Protein 6.5 gm/dl (6.4-8.2) Albumin 2.4 gm/dl (3.4-5.0) Globulin 4.1 gm/dl (2.5-4.0) Albumin/Globulin Ratio 0.6 (0.9-2) Urine Color YELLOW Urine Appearance CLEAR (CLEAR) Urine pH 5.0 (4.5-7.5) Urine Specific [place] 1.017 (1.000-1.030) Urine Protein NEG (NEG) Urine Glucose (UA) NEG (NEG) Urine Ketones NEG (NEG) Urine Occult Blood 2+ (NEG) Urine Nitrite NEG (NEG) Urine Bilirubin NEG (NEG) Urine Urobilinogen NEG (NEG) Urine Leukocyte Esterase NEG (NEG) Urine WBC (Auto) 0 /hpf (0-5) Urine RBC (Auto) 5-10 /hpf (0-4) Urine Hyaline Casts (Auto) 1-5 /lpf (0-5) Urine Epithelial Cells (Auto) 0-5 /lpf (0-5) Urine Bacteria (Auto) NEG (NEG) Ferritin 1605.0 ng/ml (8.0-388.0) Hepatitis B Surface Antigen NEG (NEG) Hepatitis C Antibody NEG (NEG) Test 05/03/17 12:23 Phenytoin (Dilantin) Level 14.6 mcg/mL (10-20) Imaging CT head- There is no hemorrhage, mass effect, or evidence of acute territorial ischemia by CT criteria. There is an age indeterminant and possibly subacute comminuted fracture of the right posterior orbit with posteriorly distracted fragments. There is low- attenuation identified within the right frontal lobe posterior to the right orbit, likely representing encephalomalacia. LE venous doppler- Acute right lower extremity DVT with involvement of the popliteal vein, posterior tibial vein, and peroneal veins. US abdomen- . Significantly limited study from a technical standpoint. Nonvisualization of the pancreas Poorly visualized gallbladder but no calculi identified No ductal dilatation Impression 77 year old male fall from standing 04/08/2017, ICH, seizure medications started , elevated liver enzymes, need to switch to renal clearance Plan 1. CT head no ICH noted on recent scan 2. Dilantin currently held 3. Dilantin level currently 14.6 4. Keppra started at 500 mg q 12 hours 5. continue hydration 6. once LFT's are normalized will start heparin bridge to Coumadin 7. would repeat CT head once coagulation is started then with MS change and in 7 days 8. spoke with Jay Roman MD neurosurgery [place], [place] to taper off Dilantin but would start an AED due to presumed seizure activity which was not discovered on EEG. 9. left shoulder pain- may need xray to evaluate if not previously done 10. further recommendations to follow I have seen and discussed above patient with Dr Gillian Angelo, neurology Pt seen and examined. Appears mildy encephalopathic, ) x 1, denies KLINE, exam nonfocal, evidence of significant tremor with intention and distal atrophy LE cw chronic neuropathy.Hx fall, aforementioned injuries and intraparenchymal contusion. Suspected sz, on dilantin, increased LFts. Advised switch to keppra. Given therapeutic dilantin level liver dysfunction dilantin level should slowly decline. RE anticoag in this setting, monitor, repeat CT head in am and if headace or new sx. Agree with thiamine replacement, JOANNA Angelo MD
[2017-05-03] MEDS: LEVETIRACETAM 500 MG TAB PO SCH ×2 (14:21→20:36)
--- NOTE | 2017-05-03 15:29 | Gastrointestinal Consultation ---
Gastrointestinal Consultation Date of Consultation: May 03, 2017 Attending Physician: Dorothea Zuluaga Consulting Physician: Carrington Hernandes Reason for Consultation: Elevated LFT History of Present Illness Patient is a 77 year old male w PMHx of BPH, Depression, DM II, sphenoid bone fracture, HTN currently seen for elevated LFTs. On 04/08/17 he was intoxicated and fell into a wood stove resulting in R eye injury, also had traumatic IPH of R frontal lobe, scattered subarachnoid hemorrhage, subdural hemorrhages. He was treated at [facility] and underwent emergent canthotomy. He was DC'd to [facility] for rehab on 04/19/17. But sent to ED for evaluation due to not progressing with rehab and also having low grade fevers. CT head w/o new acute findings, CXR also grossly unremarkable. Doppler of LE showed R LE DVT. Among several notable abnormalities in his labs are elevated LFTs - more specifically transaminases in 100s, alk phos 200s. Baseline LFTs are normal up till . RUQ us attempted which showed increased echogenicity of liver, but limited exam due to pt's inability to cooperate with exam maneuvers. Pt usually takes 3 tabs of regular APAP on daily basis per pt. He was started on Dilantin for possible seizure activity while at [facility] though not confirmed. No other herbal supplements. He denies any tattoos, piercing. Hx of blood transfusion. No organ transplant. He denies tobacco. But been drinking quite heavily, up to 3- 4oz of Whiskey on daily basis. He denies family hx of autoimmune or hereditary liver diseases. Past Medical/Surgical History Past Medical History: See above Past Surgical History: As above, laminectomy, orchiectomy, paraesophageal hernia Family History FH: lymphoma MOTHER Renal cancer BROTHER Social History Smoking Status: Former Smoker Alcohol Use: heavy Drug Use: none Marital Status: Housing Status: lives with family Allergies Coded Allergies: No Known Allergies (Unverified , 05/02/17) Current Medications Home Meds and Scripts Medications Dose Route/Sig Max Daily Dose Days Date Category Dose Instructions Neurontin (Gabapentin) 100 Mg Cap 100 Mg PO Q8 05/02/17 Reported Maxitrol Oph (Neomycin/Polymyxin/Dexamethasone) Oint 1 Appln OPR QID 05/02/17 Reported Melatonin 5 Mg Tab 5 Mg PO QPM 05/02/17 Reported Tylenol (Acetaminophen) 500 Mg Tab 500 Mg PO Q4 PRN 05/02/17 Reported Miralax (Polyethylene Glycol 3350) 1 Pow Pow 17 Gm PO QDL PRN 05/02/17 Reported Fleet Enema Six Pack (Sodium Phosphates) 1 Brenda Brenda 1 Dose [place] DAILY PRN 05/02/17 Reported Bisacodyl 10 Mg Sup 1 Supp [place] DAILY PRN 05/02/17 Reported Milk of Magnesia (Magnesium Hydroxide) 30 Ml Susp 30 Ml PO DAILY PRN 05/02/17 Reported Docusate Sodium 100 Mg Cap 100 Mg PO BID 05/02/17 Reported Vitamin B-1 (Thiamine HCl) 100 Mg Tab 50 Mg PO QDB 05/02/17 Reported 1/2 OF A 100 MG TABLET Flomax (Tamsulosin Hcl) 0.4 Mg Cap 0.4 Mg PO HS 05/02/17 Reported Toprol Xl (Metoprolol Succinate) 50 Mg Tabcr 50 Mg PO DAILY 05/02/17 Reported Zestril (Lisinopril) 20 Mg Tab 40 Mg PO DAILY 05/02/17 Reported Dilantin (Phenytoin Sodium Extended) 30 Mg Cap 150 Mg PO Q8 05/02/17 Reported FIVE 30 MG CAPSULES Synthroid (Levothyroxine Sodium) 25 Mcg Tab 25 Mcg PO DAILY 05/02/17 Reported Oxycodone HCl 5 Mg Tab 5 Mg PO Q4 PRN 05/02/17 Reported SCALE 4-10 Lipitor (Atorvastatin Calcium) 40 Mg Tab 40 Mg PO QPM 05/02/17 Reported Allopurinol 300 Mg Tab 300 Mg PO DAILY 05/02/17 Reported Review of Systems Constitutional: + fever, + weakness, No chills Respiratory: No cough, No shortness of breath Cardiac: No chest pain Abdomen: No pain, No nausea, No vomiting, No diarrhea Skin: No rash, No itch, No jaundice Physical Exam Date Time Temp Pulse Resp B/P (MAP) Pulse Ox O2 Delivery O2 Flow Rate FiO2 05/03/17 12:10 Room Air 05/03/17 11:13 36.7 80 18 128/80 (96) 93 Room Air 05/03/17 08:00 96 Room Air 05/03/17 08:00 Room Air 05/03/17 07:54 36.9 88 18 134/78 (96) 96 Room Air 05/03/17 04:23 36.7 86 18 137/79 (98) 95 Room Air 05/03/17 04:00 93 Room Air 05/03/17 00:38 36.8 84 19 135/81 (99) 100 Room Air 05/02/17 23:30 93 Room Air 05/02/17 20:15 37.2 86 18 133/72 Room Air 05/02/17 20:15 93 Room Air 05/02/17 19:47 88 18 106/79 95 Room Air 05/02/17 18:28 85 05/02/17 18:24 79 18 138/78 95 Room Air 05/02/17 17:11 87 23 148/95 100 Room Air General Appearance: WD/WN, no apparent distress Eyes: EOMI, + pertinent finding (R eye injury) Neck: supple, no JVD, trachea midline Respiratory/Chest: normal breath sounds, no respiratory distress, no accessory muscle use Cardiovascular: regular rate, rhythm, no gallop, no murmur Abdomen: normal bowel sounds, non tender, soft Extremities: normal inspection, no pedal edema, no calf tenderness Neurologic/Psych: alert, normal mood/affect, oriented x 3 Skin: normal color, no jaundice, no rash Laboratory Results Last 24 Hours Test 05/02/17 15:28 05/02/17 15:37 05/02/17 21:47 05/03/17 00:48 White Blood Count 4.04 K/uL Red Blood Count 3.88 M/uL Hemoglobin 12.8 g/dL Hematocrit 37.0 % Mean Corpuscular Volume 95.4 fL Mean Corpuscular Hemoglobin 33.0 pg Mean Corpuscular Hemoglobin Concent 34.6 g/dl Platelet Count 151 K/uL Mean Platelet Volume 9.5 fL Neutrophils (%) (Auto) 65.7 % Lymphocytes (%) (Auto) 20.0 % Monocytes (%) (Auto) 11.1 % Eosinophils (%) (Auto) 1.0 % Basophils (%) (Auto) 0.7 % Neutrophils # (Auto) 2.65 K/uL Lymphocytes # (Auto) 0.81 K/uL Monocytes # (Auto) 0.45 K/uL Eosinophils # (Auto) 0.04 K/uL Basophils # (Auto) 0.03 K/uL RDW Standard Deviation 44.4 fL RDW Coefficient of Variation 12.9 % Immature Granulocyte % (Auto) 1.5 % Immature Granulocyte # (Auto) 0.06 K/uL Prothrombin Time 10.7 SECONDS Prothromb Time International Ratio 1.0 Activated Partial Thromboplast Time 27.2 SECONDS 58.3 SECONDS Partial Thromboplastin Ratio 1.0 2.2 Sodium Level 129 mmol/L Potassium Level 4.8 mmol/L Chloride Level 99 mmol/L Carbon Dioxide Level 22 mmol/L Anion Gap 8.0 mmol/L Blood Urea Nitrogen 55 mg/dl Creatinine 1.41 mg/dl Est Creatinine Clear Calc Drug Dose 45.3 ml/min Estimated GFR () 56.1 Estimated GFR (Non- 48.4 BUN/Creatinine Ratio 38.8 Random Glucose 127 mg/dl Calcium Level 9.4 mg/dl Magnesium Level 2.3 mg/dl Total Bilirubin 0.3 mg/dl Direct Bilirubin 0.1 mg/dl Aspartate Amino Transf (AST/SGOT) 147 U/L Alanine Aminotransferase (ALT/SGPT) 165 U/L Alkaline Phosphatase 208 U/L Total Creatine Kinase 42 U/L Creatine Kinase MB 1.4 ng/ml Creatine Kinase MB Ratio 3.3 Troponin I < 0.015 ng/ml Total Protein 7.7 gm/dl Albumin 2.8 gm/dl Bedside Lactic Acid Venous 1.49 mmol/L Bedside Glucose 107 mg/dl Test 05/03/17 06:57 05/03/17 10:29 05/03/17 11:23 05/03/17 12:23 White Blood Count 3.49 K/uL Red Blood Count 3.49 M/uL Hemoglobin 11.3 g/dL Hematocrit 32.8 % Mean Corpuscular Volume 94.0 fL Mean Corpuscular Hemoglobin 32.4 pg Mean Corpuscular Hemoglobin Concent 34.5 g/dl Platelet Count 128 K/uL Mean Platelet Volume 9.2 fL Neutrophils (%) (Auto) 56.1 % Lymphocytes (%) (Auto) 27.8 % Monocytes (%) (Auto) 11.7 % Eosinophils (%) (Auto) 2.6 % Basophils (%) (Auto) 0.9 % Neutrophils # (Auto) 1.96 K/uL Lymphocytes # (Auto) 0.97 K/uL Monocytes # (Auto) 0.41 K/uL Eosinophils # (Auto) 0.09 K/uL Basophils # (Auto) 0.03 K/uL RDW Standard Deviation 42.9 fL RDW Coefficient of Variation 12.6 % Immature Granulocyte % (Auto) 0.9 % Immature Granulocyte # (Auto) 0.03 K/uL Sodium Level 134 mmol/L Potassium Level 3.9 mmol/L Chloride Level 105 mmol/L Carbon Dioxide Level 19 mmol/L Anion Gap 10.0 mmol/L Blood Urea Nitrogen 39 mg/dl Creatinine 0.88 mg/dl Est Creatinine Clear Calc Drug Dose 72.6 ml/min Estimated GFR () 97.4 Estimated GFR (Non- 84.0 BUN/Creatinine Ratio 44.6 Random Glucose 107 mg/dl Calcium Level 8.9 mg/dl Total Bilirubin 0.3 mg/dl Aspartate Amino Transf (AST/SGOT) 114 U/L Alanine Aminotransferase (ALT/SGPT) 130 U/L Alkaline Phosphatase 180 U/L Total Protein 6.5 gm/dl Albumin 2.4 gm/dl Globulin 4.1 gm/dl Albumin/Globulin Ratio 0.6 Urine Color YELLOW Urine Appearance CLEAR Urine pH 5.0 Urine Specific [place] 1.017 Urine Protein NEG Urine Glucose (UA) NEG Urine Ketones NEG Urine Occult Blood 2+ Urine Nitrite NEG Urine Bilirubin NEG Urine Urobilinogen NEG Urine Leukocyte Esterase NEG Urine WBC (Auto) 0 /hpf Urine RBC (Auto) 5-10 /hpf Urine Hyaline Casts (Auto) 1-5 /lpf Urine Epithelial Cells (Auto) 0-5 /lpf Urine Bacteria (Auto) NEG Ferritin 1605.0 ng/ml Hepatitis B Surface Antigen NEG Hepatitis C Antibody NEG Phenytoin (Dilantin) Level 14.6 mcg/mL Impression Patient is a 77 year old male seen for new LFT elevation. Recently started on Dilantin for suspected seizure activity. This can certainly be the cause of his LFT elevation. He is also a heavy ETOH user, may have some component of ETOH liver disease though ETOH hepatitis unlikely as Tbili not elevated and last ETOH intake was almost 1 month ago. + fatty liver likely from ETOH use. LFTs today improved. Plan - Obtain serologies to r/o acute hepatitis, autoimmune, hereditary liver diseases. - Monitor LFTs - If ok per Neurology hold Dilantin or switching to different anti seizure med - Obtain Liver u/s w doppler to r/o PVT. - ETOH cessation. - Limit APAP <2g daily if needed. ATTESTATION: I have performed a history and physical examination of this patient and reviewed the electronic record. Specifically, on physical examination there are no stigmata of chronic liver disease and no abdominal tenderness. I have discussed the case with JOSH Saldaña. The above note reflects my findings , conclusions, and recommendations. Carrington Hernandes MD
--- NOTE | 2017-05-03 18:57 | DIAGNOSTIC IMAGING REPORT ---
L SHOULDER MIN 2 VIEWS ROUTINE CLINICAL HISTORY: left shoulder pain ; hx of fall COMPARISON: None. DISCUSSION: There is a probable old fracture arising from the inferior scapular glenoid. There is a suspected old proximal humeral impaction fracture. No acute humeral fractures are visualized. There are no dislocations. There is marked narrowing of the humeral coronal distance consistent with chronic rotator cuff tear/degeneration. There is a probable calcified loose body projected adjacent to the scapular glenoid, as well as over the scapular body. IMPRESSION: 1. Suspected old proximal humeral impaction fracture 2. Calcified loose bodies 3. Probable old fracture arising from the inferior scapular glenoid 4. Conventional radiographic evidence of chronic rotator cuff tear 5. No acute fractures or dislocations identified Electronically signed by: Lion Britt M.D. 05/03/2017 6:56 PM Dictated Date/Time: 05/03/2017 6:52 PM
[2017-05-03] MEDS: TAMSULOSIN HCL 0.4 MG CAP PO SCH (20:37)
[2017-05-03] MEDS: HEPARIN 25,000 UNIT/500ML D5W 500 ML IV PRN (20:40)
[2017-05-03] MEDS ORDERED: LEVETIRACETAM 500 MG TAB PO SCH (21:00)
[2017-05-03] MEDS ORDERED: DOCUSATE SODIUM 100 MG CAP PO PRN (21:00)
--- NOTE | 2017-05-03 21:59 | Progress Note ---
Progress Note Date of Service May 03, 2017. Progress Note ATTENDING ADDENDUM : report of Xray of left shoulder reviewed : IMPRESSION: 1. Suspected old proximal humeral impaction fracture 2. Calcified loose bodies 3. Probable old fracture arising from the inferior scapular glenoid 4. Conventional radiographic evidence of chronic rotator cuff tear 5. No acute fractures or dislocations identified Orthopedic consult requested
[2017-05-04] VITALS (10 sets, daily range): BP systolic 124–146; BP diastolic 73–80; PULSE 67–87; TEMP 36.4–37.4; O2SAT 95–100
[2017-05-04] MEDS: LEVOTHYROXINE 25 MCG TAB PO SCH (05:34)
[2017-05-04] MEDS: GABAPENTIN 100 MG CAP PO SCH ×3 (05:34→22:22)
[2017-05-04 07:22] LABS: PTT PATIENT 89.2 SECONDS (21.0-31.0)
[2017-05-04 07:35] LABS: ALBUMIN 2.4 gm/dl (3.4-5.0); CALCIUM 8.9 mg/dl (8.5-10.1); CREATININE 0.77 mg/dl (0.60-1.40); POTASSIUM 3.8 mmol/L (3.5-5.1)
[2017-05-04 07:39] LABS: TOTAL PROTEIN 6.1 gm/dl (6.4-8.2)
[2017-05-04] MEDS: ALLOPURINOL 300 MG TAB PO SCH (07:48)
[2017-05-04] MEDS: NEOMYCIN OPR SCH ×4 (07:49→20:13)
[2017-05-04] MEDS: METOPROLOL SUCC 50MG EXT REL TAB PO SCH (07:49)
[2017-05-04] MEDS: LEVETIRACETAM 500 MG TAB PO SCH ×2 (07:49→20:13)
[2017-05-04] MEDS: SODIUM CHLORIDE 0.9% 1000ML 1,000 ML IV SCH ×2 (07:49→20:50)
[2017-05-04] MEDS: DEXAMETH OP OPR SCH ×4 (07:49→20:13)
[2017-05-04] MEDS: POLYMYX OPR SCH ×4 (07:49→20:13)
[2017-05-04] MEDS: THIAMINE HCL 100 MG TAB PO SCH (07:49)
--- NOTE | 2017-05-04 08:33 | DIAGNOSTIC IMAGING REPORT ---
CT SCAN OF THE BRAIN WITHOUT IV CONTRAST CLINICAL HISTORY: Anticoagulation. Assess for hemorrhage. COMPARISON STUDY: CT of the brain dated 05/02/2017. TECHNIQUE: Unenhanced axial CT scan of the brain is performed from the vertex to the skull base. A dose lowering technique was utilized adhering to the principles of ALARA. CT DOSE: 537.48 mGy.cm FINDINGS: Brain parenchyma: Low-attenuation is identified within the right frontal lobe posterior to the right orbit. There are age-related involutional changes noting mild subcortical and periventricular microangiopathic change. There is no hemorrhage, mass effect, or evidence of acute territorial ischemia by CT criteria. [place]-white matter is preserved. No extra-axial fluid collection is seen. Ventricles, sulci, cisterns: Prominent secondary to involutional change. Intracranial vasculature: There is atherosclerotic calcification of the cavernous carotid and vertebral arteries. Calvarium: The skeletal structures are osteopenic. No depressed calvarial fracture is seen. Sinuses and mastoids: Mild mucosal thickening is seen in the left maxillary antrum and the ethmoid sinuses. The remaining visualized paranasal sinuses are clear. The mastoid air cells are well pneumatized. Orbits: There is an age indeterminant and possibly subacute comminuted fracture of the left orbit with posteriorly displaced fragments. The left bony orbit is grossly intact. IMPRESSION: 1. There is no hemorrhage, mass effect, or evidence of acute territorial ischemia by CT criteria. 2. Again seen is is an age indeterminant and possibly subacute comminuted fracture of the right posterior orbit with posteriorly distracted fragments. 3. Low-attenuation is again identified within the right frontal lobe posterior to the right orbit, likely representing encephalomalacia. Electronically signed by: Jeff Chamberlain M.D. 05/04/2017 8:32 AM Dictated Date/Time: 05/04/2017 8:30 AM
--- NOTE | 2017-05-04 09:09 | DIAGNOSTIC IMAGING REPORT ---
DUPLEX PORTAL HEPATIC VEINS CLINICAL HISTORY: r/o PVT; elevated LFT COMPARISON STUDY: Abdominal ultrasound 05/02/2017. FINDINGS: The hepatic and portal veins are patent and demonstrate normal direction of flow. The IVC is also patent. IMPRESSION: No evidence for portal vein thrombosis. Electronically signed by: Mason Patel M.D. 05/04/2017 9:08 AM Dictated Date/Time: 05/04/2017 9:07 AM
[2017-05-04 14:30] LABS: PTT PATIENT 63.9 SECONDS (21.0-31.0)
--- NOTE | 2017-05-04 14:36 | Gastroenterology Progress Note ---
Progress Note Date of Service: May 04, 2017 Subjective Pt evaluation today including: conversation w/ patient, physical exam, chart review, lab review, review of studies, review of inpatient medication list Mr. Roca is a 77 yr old male admitted for falls, subdural bleed in March. GI consulted yesterday for elevated LFTs, possibly from Dilantin. LFTs yesterday were decreased compared to the day prior but similar today compared to yesterday. Today: normal total bili. AST 104, ALT 119, ALk Phos 182 Review of Systems Constitutional: + weakness, No fever ENT: No hearing loss Respiratory: No cough Cardiac: No chest pain Abdomen: No pain Musculoskeletal: No joint pain Male : No dysuria Neuro: No memory loss Psych: No depression symptoms Heme: No abnormal bleeding/bruising Endo: No fatigue Medications Current Inpatient Medications Medications (Trade) Dose Ordered Sig/Jay Route Start Time Stop Time Status Last Admin Dose Admin Ondansetron HCl (Zofran Inj) 4 mg Q6H PRN IV 05/02/17 18:45 06/01/17 18:44 Sodium Chloride 1,000 ml @ 80 mls/hr [id number] IV 05/02/17 19:15 06/01/17 19:14 05/04/17 07:49 80 MLS/HR Heparin Sodium/ Dextrose 500 ml @ 15 mls/hr Q24H PRN IV 05/02/17 19:30 06/01/17 19:29 05/03/17 20:40 18 MLS/HR Allopurinol (Zyloprim Tab) 300 mg DAILY PO 05/03/17 09:00 06/02/17 08:59 05/04/17 07:48 300 MG Gabapentin (Neurontin Cap) 100 mg Q8 PO 05/02/17 22:00 06/01/17 21:59 05/04/17 14:23 100 MG Levothyroxine Sodium (Synthroid Tab) 25 mcg DAILYBB PO 05/03/17 06:00 06/02/17 06:59 05/04/17 05:34 25 MCG Metoprolol Succinate (Toprol Xl Tab) 50 mg DAILY PO 05/03/17 09:00 06/02/17 08:59 05/04/17 07:49 50 MG Neomycin/ Polymyxin/ Dexamethasone (Maxitrol Oph Oint) 1 appln QID OPR 05/02/17 21:00 06/01/17 20:59 05/04/17 14:23 1 APPLN Oxycodone HCl (Roxicodone Immediate Rel Tab) 5 mg Q4 PRN PO 05/02/17 19:30 05/16/17 19:29 Tamsulosin HCl (Flomax Cap) 0.4 mg HS PO 05/02/17 21:00 06/01/17 20:59 05/03/17 20:37 0.4 MG Thiamine HCl (Vitamin B-1 Tab) 50 mg QDB PO 05/03/17 07:30 06/02/17 07:59 05/04/17 07:49 50 MG Polyethylene (Miralax Powder Packet) 17 gm QDL PRN PO 05/02/17 19:30 06/01/17 19:29 Docusate Sodium (coLACE CAP) 100 mg BID PRN PO 05/03/17 21:00 06/01/17 20:59 Levetiracetam (Keppra Tab) 500 mg BID PO 05/03/17 13:45 06/02/17 20:59 05/04/17 07:49 500 MG Acetaminophen (Tylenol Tab) 650 mg Q8 PRN PO 05/03/17 17:45 06/01/17 18:44 Objective Vital Signs Date Time Temp Pulse Resp B/P (MAP) Pulse Ox O2 Delivery O2 Flow Rate FiO2 05/04/17 12:00 Room Air 05/04/17 11:04 36.6 79 20 130/78 (95) 98 Room Air 05/04/17 08:00 Room Air 05/04/17 07:08 37.4 87 20 146/79 (101) 95 Room Air 05/04/17 04:00 Room Air 05/04/17 04:00 98 Room Air 05/04/17 02:43 36.8 78 17 129/73 (91) 98 Room Air 05/04/17 00:06 36.8 82 22 146/80 (102) 100 Room Air 05/03/17 23:59 Room Air 05/03/17 23:59 100 Room Air 05/03/17 20:28 36.2 82 16 120/75 (90) 96 Room Air 05/03/17 20:00 Room Air 05/03/17 20:00 96 Room Air 05/03/17 16:42 36.7 80 16 118/76 (90) 94 Room Air 05/03/17 16:00 94 Room Air 05/03/17 16:00 Room Air Physical Exam General Appearance: no apparent distress ENT: pharynx normal Neck: no adenopathy, no JVD Respiratory/Chest: lungs clear Cardiovascular: regular rate, rhythm, no murmur Abdomen: soft Extremities: no pedal edema Neurologic/Psych: alert, normal mood/affect, oriented x 3 Skin: no jaundice Laboratory Results Last 24 Hours Test 05/04/17 06:46 05/04/17 13:44 Activated Partial Thromboplast Time 89.2 SECONDS Partial Thromboplastin Ratio 3.4 Sodium Level 137 mmol/L Potassium Level 3.8 mmol/L Chloride Level 109 mmol/L Carbon Dioxide Level 20 mmol/L Anion Gap 8.0 mmol/L Blood Urea Nitrogen 22 mg/dl Creatinine 0.77 mg/dl Est Creatinine Clear Calc Drug Dose 82.9 ml/min Estimated GFR () 102.9 Estimated GFR (Non- 88.8 BUN/Creatinine Ratio 29.3 Random Glucose 99 mg/dl Calcium Level 8.9 mg/dl Total Bilirubin 0.2 mg/dl Direct Bilirubin 0.1 mg/dl Aspartate Amino Transf (AST/SGOT) 103 U/L Alanine Aminotransferase (ALT/SGPT) 119 U/L Alkaline Phosphatase 182 U/L Total Protein 6.1 gm/dl Albumin 2.4 gm/dl Folate 18.72 ng/mL Assessment and Plan Mr. Porter is a 77 yr old male with mild to moderately elevated transaminases, possibly from Dilantin, serologies (-) thus far. There is no evidence of a biliary obstruction. His ferritin level is higher than expected (though it is an acute phase reactant, so would expect some increase), thus hemochromatosis should be ruled out. Plan: 1. Will continue to trend LFTs periodically and check results of serology. 2. Will check iron, TIBC, transferrin sat and HFE. ATTESTATION: I have performed a history and physical examination of this patient and reviewed the electronic record. Specifically, on physical examination abdomen is soft and not tender. I have discussed the case with JOSH Liz. The above note reflects my findings, conclusions, and recommendations. Carrington Hernandes MD
--- NOTE | 2017-05-04 14:51 | Neurology Progress Notes ---
Neurology Progress Note Date of Service May 04, 2017. Bran Otero is a 77 year old male who was sent to the ED from [facility] for evaluation of possible DVT. 04/08/2017-He was intoxicated and fell into a wood stove suffering injury to his right eye. He was also found to have traumatic, IPH right frontal lobe, Scattered Subarachnoid hemorrhage, Subdural Hemorrhage along bifrontal and right temporal regions that extends into right tentorium, and intraventricular hemorrhage. He was LF from [place] to [place] for management. He also developed compartment syndrome of the right eye and had to undergo emergent canthotomy. There was no surgical intervention for the ICH. On 04/19 he was deems stable and transferred to [facility]. They were concerned that he was not progressing in therapy and was also running low grade fevers. In the ED he was found to have acute right lower extremity DVT with involvement of the popliteal vein, posterior tibial vein, and peroneal veins. He is also found to have elevated LFTs and creatinine. Accord to report his MS has been waxing and weaning since the fall. he is sitting up in bed but nursing is bedside and states he is still very weak. denies CP, SOB, abdominal pain, weakness, numbness tingling, N, V, Headache. +eye pain Objective Date Time Temp Pulse Resp B/P (MAP) Pulse Ox O2 Delivery O2 Flow Rate FiO2 05/04/17 12:00 Room Air 05/04/17 11:04 36.6 79 20 130/78 (95) 98 Room Air 05/04/17 08:00 Room Air 05/04/17 07:08 37.4 87 20 146/79 (101) 95 Room Air 05/04/17 04:00 Room Air 05/04/17 04:00 98 Room Air 05/04/17 02:43 36.8 78 17 129/73 (91) 98 Room Air 05/04/17 00:06 36.8 82 22 146/80 (102) 100 Room Air 05/03/17 23:59 Room Air 05/03/17 23:59 100 Room Air 05/03/17 20:28 36.2 82 16 120/75 (90) 96 Room Air 05/03/17 20:00 Room Air 05/03/17 20:00 96 Room Air 05/03/17 16:42 36.7 80 16 118/76 (90) 94 Room Air 05/03/17 16:00 94 Room Air 05/03/17 16:00 Room Air Last 24 Hours Test 05/04/17 06:46 05/04/17 13:44 05/04/17 14:38 Activated Partial Thromboplast Time 89.2 SECONDS 63.9 SECONDS Partial Thromboplastin Ratio 3.4 2.5 Sodium Level 137 mmol/L Potassium Level 3.8 mmol/L Chloride Level 109 mmol/L Carbon Dioxide Level 20 mmol/L Anion Gap 8.0 mmol/L Blood Urea Nitrogen 22 mg/dl Creatinine 0.77 mg/dl Est Creatinine Clear Calc Drug Dose 82.9 ml/min Estimated GFR () 102.9 Estimated GFR (Non- 88.8 BUN/Creatinine Ratio 29.3 Random Glucose 99 mg/dl Calcium Level 8.9 mg/dl Total Bilirubin 0.2 mg/dl Direct Bilirubin 0.1 mg/dl Aspartate Amino Transf (AST/SGOT) 103 U/L Alanine Aminotransferase (ALT/SGPT) 119 U/L Alkaline Phosphatase 182 U/L Total Protein 6.1 gm/dl Albumin 2.4 gm/dl Folate 18.72 ng/mL Imaging: CT head- There is no hemorrhage, mass effect, or evidence of acute territorial ischemia by CT criteria. Again seen is is an age indeterminant and possibly subacute comminuted fracture of the right posterior orbit with posteriorly distracted fragments. Low-attenuation is again identified within the right frontal lobe posterior to the right orbit, likely representing encephalomalacia. Exam: Physical Exam: Constitutional: appearance nourished, pale Ears, Nose, Mouth and Throat: mucous membranes moist, no injection and skin normal, eyes normal Cardiovascular: normal S-1 and S-2 and regular rate and rhythm Respiratory: clear to auscultation (CTA) and no rales, rhonchi or wheeze Musculoskeletal: no peripheral edema Skin: no stigmata of neurocutaneous disease noted and normal and intact Eyes: right eye lid excoriation, globe appears to be ruptured NEUROLOGIC EXAMINATION: Mental status: Alert and interactive Oriented self, hospital not [facility] Speech fluent with no evidence of aphasia Cranial Nerves minimal movement with right eye brow, lid Reflexes: Deep tendon reflexes were symmetrical and graded 2/5. Plantar responses were flexor. Sensory: GT proprioception absent, decreased to light touch and vibration to ankles Coordination: finger to nose no bi pass Gait/Stance: Posture sitting in bed Current Inpatient Medications Medications (Trade) Dose Ordered Sig/Jay Route Start Time Stop Time Status Last Admin Dose Admin Ondansetron HCl (Zofran Inj) 4 mg Q6H PRN IV 05/02/17 18:45 06/01/17 18:44 Sodium Chloride 1,000 ml @ 80 mls/hr [id number] IV 05/02/17 19:15 06/01/17 19:14 05/04/17 07:49 80 MLS/HR Heparin Sodium/ Dextrose 500 ml @ 15 mls/hr Q24H PRN IV 05/02/17 19:30 06/01/17 19:29 05/03/17 20:40 18 MLS/HR Allopurinol (Zyloprim Tab) 300 mg DAILY PO 05/03/17 09:00 06/02/17 08:59 05/04/17 07:48 300 MG Gabapentin (Neurontin Cap) 100 mg Q8 PO 05/02/17 22:00 06/01/17 21:59 05/04/17 14:23 100 MG Levothyroxine Sodium (Synthroid Tab) 25 mcg DAILYBB PO 05/03/17 06:00 06/02/17 06:59 05/04/17 05:34 25 MCG Metoprolol Succinate (Toprol Xl Tab) 50 mg DAILY PO 05/03/17 09:00 06/02/17 08:59 05/04/17 07:49 50 MG Neomycin/ Polymyxin/ Dexamethasone (Maxitrol Oph Oint) 1 appln QID OPR 05/02/17 21:00 06/01/17 20:59 05/04/17 14:23 1 APPLN Oxycodone HCl (Roxicodone Immediate Rel Tab) 5 mg Q4 PRN PO 05/02/17 19:30 05/16/17 19:29 Tamsulosin HCl (Flomax Cap) 0.4 mg HS PO 05/02/17 21:00 06/01/17 20:59 05/03/17 20:37 0.4 MG Thiamine HCl (Vitamin B-1 Tab) 50 mg QDB PO 05/03/17 07:30 06/02/17 07:59 05/04/17 07:49 50 MG Polyethylene (Miralax Powder Packet) 17 gm QDL PRN PO 05/02/17 19:30 06/01/17 19:29 Docusate Sodium (coLACE CAP) 100 mg BID PRN PO 05/03/17 21:00 06/01/17 20:59 Levetiracetam (Keppra Tab) 500 mg BID PO 05/03/17 13:45 06/02/17 20:59 05/04/17 07:49 500 MG Acetaminophen (Tylenol Tab) 650 mg Q8 PRN PO 05/03/17 17:45 06/01/17 18:44 Impression 77 year old male fall from standing 04/08/2017, ICH, seizure medications started , elevated liver enzymes, need to switch to renal clearance Plan 1. CT head no ICH noted on recent scan- repeat no change 05/04/2017 2. Dilantin currently held 3. Dilantin level with last check 14.6 05/03/2017 4. Keppra started at 500 mg q 12 hours 5. continue hydration 6. once LFT's are normalized will start heparin bridge to Coumadin-mildly improved 7. would repeat CT head once coagulation is started then with MS change and in 7 days 8. spoke with Jay Roman MD neurosurgery [place], dc to taper off Dilantin but would start an AED due to presumed seizure activity which was not discovered on EEG. 9. left shoulder pain- may need xray to evaluate if not previously done 10. will need a follow up with [facility] once discharged from rehab. ( [place]) I have seen and discussed above patient with Dr Gillian Angelo, neurology Pt seen, more oriented, no obvious weakness. Impr cerebral contusion, related to fall, no recurrence on heparin on CT. Suspected sz, switched from dilantin bc of increased LFT to Keppra. NO sz. It is unclear etiology of sz, query contusion or etoh withdrawal? Dr Liz will follow with you, JOANNA Angelo MD
--- NOTE | 2017-05-04 18:13 | Orthopedic Consultation ---
Orthopedic Consultation Date of Consultation: May 04, 2017. Attending Physician: Dorothea Zuluaga M.D. Reason for Consultation: Left shoulder pain History of Present Illness 77-year-old male has mild left shoulder pain history of recent injury to his right eye with some type of globe injury and subdural hematoma. Had surgical procedure right eye. This was in early March. He said he may have injured his shoulder but is not sure. He had a history of a rotator cuff repair 50 years ago. He said he injured it again and has not had complete normal function even before questionable reinjury. He also had injury surgery to his other shoulder. Family History FH: lymphoma MOTHER Renal cancer BROTHER Social History Smoking Status: Former Smoker Alcohol Use: heavy (former) Drug Use: none Marital Status: Housing Status: lives with family, other ([facility]) Occupation Status: retired Allergies Coded Allergies: No Known Allergies (Unverified , 05/02/17) Home Medications Scheduled Allopurinol (Allopurinol), 300 MG PO DAILY Atorvastatin (Lipitor), 40 MG PO QPM Docusate Sodium (Docusate Sodium), 100 MG PO BID Gabapentin (Neurontin), 100 MG PO Q8 Levothyroxine Sodium (Synthroid), 25 MCG PO DAILY Lisinopril (Zestril), 40 MG PO DAILY Melatonin (Melatonin), 5 MG PO QPM Metoprolol Succinate (Toprol Xl), 50 MG PO DAILY Neomycin/Polymyxin/Dexameth Oph (Maxitrol Oph), 1 APPLN OPR QID Phenytoin Sodium Extended (Dilantin), 150 MG PO Q8 Tamsulosin Hcl (Flomax), 0.4 MG PO HS Thiamine Hcl (Vitamin B-1), 50 MG PO QDB Scheduled PRN Acetaminophen (Tylenol), 500 MG PO Q4 PRN for Pain Bisacodyl (Bisacodyl), 1 SUPP IN DAILY PRN for Constipation Magnesium Hydroxide (Milk of Magnesia), 30 ML PO DAILY PRN for Constipation Oxycodone HCl (Oxycodone HCl), 5 MG PO Q4 PRN for Pain Polyethylene Glycol 3350 (Miralax), 17 GM PO QDL PRN for Constipation Sodium Phosphates (Fleet Enema Six Pack), 1 DOSE IN DAILY PRN for Constipation Current Inpatient Medications Current Inpatient Medications Medications (Trade) Dose Ordered Sig/Jay Route Start Time Stop Time Status Last Admin Dose Admin Ondansetron HCl (Zofran Inj) 4 mg Q6H PRN IV 05/02/17 18:45 06/01/17 18:44 Sodium Chloride 1,000 ml @ 80 mls/hr [id number] IV 05/02/17 19:15 06/01/17 19:14 05/04/17 07:49 80 MLS/HR Heparin Sodium/ Dextrose 500 ml @ 15 mls/hr Q24H PRN IV 05/02/17 19:30 06/01/17 19:29 05/03/17 20:40 18 MLS/HR Allopurinol (Zyloprim Tab) 300 mg DAILY PO 05/03/17 09:00 06/02/17 08:59 05/04/17 07:48 300 MG Gabapentin (Neurontin Cap) 100 mg Q8 PO 05/02/17 22:00 06/01/17 21:59 05/04/17 14:23 100 MG Levothyroxine Sodium (Synthroid Tab) 25 mcg DAILYBB PO 05/03/17 06:00 06/02/17 06:59 05/04/17 05:34 25 MCG Metoprolol Succinate (Toprol Xl Tab) 50 mg DAILY PO 05/03/17 09:00 06/02/17 08:59 05/04/17 07:49 50 MG Neomycin/ Polymyxin/ Dexamethasone (Maxitrol Oph Oint) 1 appln QID OPR 05/02/17 21:00 06/01/17 20:59 05/04/17 16:44 1 APPLN Oxycodone HCl (Roxicodone Immediate Rel Tab) 5 mg Q4 PRN PO 05/02/17 19:30 05/16/17 19:29 Tamsulosin HCl (Flomax Cap) 0.4 mg HS PO 05/02/17 21:00 06/01/17 20:59 05/03/17 20:37 0.4 MG Thiamine HCl (Vitamin B-1 Tab) 50 mg QDB PO 05/03/17 07:30 06/02/17 07:59 05/04/17 07:49 50 MG Polyethylene (Miralax Powder Packet) 17 gm QDL PRN PO 05/02/17 19:30 06/01/17 19:29 Docusate Sodium (coLACE CAP) 100 mg BID PRN PO 05/03/17 21:00 06/01/17 20:59 Levetiracetam (Keppra Tab) 500 mg BID PO 05/03/17 13:45 06/02/17 20:59 05/04/17 07:49 500 MG Acetaminophen (Tylenol Tab) 650 mg Q8 PRN PO 05/03/17 17:45 06/01/17 18:44 Review of Systems Musculoskeletal: + problem reported (has some bilateral shoulder as function which she's been living with.) Physical Exam Date Time Temp Pulse Resp B/P (MAP) Pulse Ox O2 Delivery O2 Flow Rate FiO2 05/04/17 16:01 36.4 75 18 124/78 (93) 96 Room Air 05/04/17 16:00 98 Room Air 05/04/17 12:00 Room Air 05/04/17 11:04 36.6 79 20 130/78 (95) 98 Room Air 05/04/17 08:00 Room Air 05/04/17 07:08 37.4 87 20 146/79 (101) 95 Room Air 05/04/17 04:00 Room Air 05/04/17 04:00 98 Room Air 05/04/17 02:43 36.8 78 17 129/73 (91) 98 Room Air 05/04/17 00:06 36.8 82 22 146/80 (102) 100 Room Air 05/03/17 23:59 Room Air 05/03/17 23:59 100 Room Air 05/03/17 20:28 36.2 82 16 120/75 (90) 96 Room Air 05/03/17 20:00 Room Air 05/03/17 20:00 96 Room Air Extremities/Musculoskelatal: + pertinent finding (left shoulder has active forward elevation to 100 active abduction to 90 limited active external rotation and normal internal rotation. He has 2+ to 3+ over 5 external rotation strength, 3+ over 5 abduction strength and 5+ over 5 internal rotation strength. I can post his arm overhead and he has functional deltoid when he brings his arm down to the side he has [id number] crepitation in the subacromial space. There is a longitudinal lateral scar from old surgery. Patient neurologically has an intrinsic atrophy of both of his hands. Circulation is normal.) Laboratory Results Last 24 Hours Test 05/04/17 06:43 05/04/17 06:46 05/04/17 13:44 Activated Partial Thromboplast Time 89.2 SECONDS 63.9 SECONDS Partial Thromboplastin Ratio 3.4 2.5 Sodium Level 137 mmol/L Potassium Level 3.8 mmol/L Chloride Level 109 mmol/L Carbon Dioxide Level 20 mmol/L Anion Gap 8.0 mmol/L Blood Urea Nitrogen 22 mg/dl Creatinine 0.77 mg/dl Est Creatinine Clear Calc Drug Dose 82.9 ml/min Estimated GFR () 102.9 Estimated GFR (Non- 88.8 BUN/Creatinine Ratio 29.3 Random Glucose 99 mg/dl Calcium Level 8.9 mg/dl Total Bilirubin 0.2 mg/dl Direct Bilirubin 0.1 mg/dl Aspartate Amino Transf (AST/SGOT) 103 U/L Alanine Aminotransferase (ALT/SGPT) 119 U/L Alkaline Phosphatase 182 U/L Total Protein 6.1 gm/dl Albumin 2.4 gm/dl Folate 18.72 ng/mL Assessment & Plan 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 Questionable fracture line in a inferior humeral osteophyte which would be not clinically significant. I discussed treatment options at length which would include subacromial steroid injection if he felt the pain was significant enough, like physical therapy with limited goals PT. Could eventually consider a reverse total shoulder replacement if he could not live with his current level of disability and had sufficient pain. Certainly would not consider this at this time until he heals up from his other medical comorbidities.
--- NOTE | 2017-05-04 19:03 | Progress Note ---
Internal Med Progress Note Date of Service: May 04, 2017. Provider Documentation: SUBJECTIVE: no complain of headache , very forgetful no fever or chills no complain of lower ext pain on IV heparin , no bleeding complication noted OBJECTIVE: Vital Signs-as noted below Exam: General-elderly male, no apparent distress Eyes-rt eye lid post surgical changes,no drainage noted ENT-moist oral mucosa Neck-trachea midline ,no thyromegaly Lungs-clear to auscultate, no wheeze or rales Heart-regular s1/s2, no JVD , no carotid bruit , no lower ext edema Abdomen-soft, non tender , bowel sound present Extremities-no ankle edema noted , +swelling on inner aspect of rt popliteal area , + pedal pulse Neuro-awake and alert, forgetful, slow to process information , no focal weakness noted Lab data as noted below. ASSESSMENT & PLAN: ACUTE RLE DVT HX TRAUMATIC INTRACRANIAL HEMORRHAGE, RIGHT ORBITAL COMPARTMENT SYNDROME S/P CANTHOTOMY - likely provoked DVT from recent prolonged hospital and rehab stays - patient sent from [facility] for concern of DVT, lower ext Doppler shows : Acute right lower extremity DVT with involvement of the popliteal vein, posterior tibial vein, and peroneal veins. - hx of recent traumatic head injury on 04/08/17 s/p fall leading to rt orbital fx , optic neuropathy, severe compartment syndrome leading to lateral canthotomy and craniotomy to reduce intra ocular pressure in [facility] in [place] pt had a prolong hospital stay from 04/08/17 to 04/19/17 -transferred to [facility] for rehab - head CT preformed in the ED negative for signs of bleeding -per Admitting team : - case was discussed with Dr. Tafoya (neurosurgery) at [facility] - given negative head CT, bleeding risks are considered low - case also discussed with Dr. Palm (ophthalmology) at [facility] - ok to anticoagulate with canthotomy history - - pt started low dose IV heparin - no signs of bleeding so far Repeat CT head with out contrast this morning 05/04/17 : no evidence of Hge or acute change pt will be continued to be monitored closely Ct head check with any evidence of headache or neurological change CT head in 7 days while on anticoagulation Risk and benefit for anticoagulation discussed in detail with Family _daughter and pt was unable to participate in discussion as could not comprehend the informations Given pt's risk for bleeding and fall risk ( had gait disturbance earlier due to Neuropathy worsened after intracranial trauma ) provoked DVt due to prolong immobilization /hospital admission , no pharmacological anticoagulation given due to intracranial hge tx for 3 months with anticoagulation will be safe given no bleeding episode happens during that period pt is on IV heparin , plan to start on PO Coumadin as liver function improves if any bleeding episode occurs -anticoagulation has to be reveres and will need vascular procedure -IVC filter placement ELEVATED LFTs due to Dilantin therapy was started on phenytoin 150 mg TID in [place] for seizure prophylaxis Dilantin has been D/erna , Dilantin level 14.6 on 05/03/2017 LFT continues to improve - RUQ US negative for acute findings neurology consult requested appreciate input started on Keppra 500 mg BID Coumadin anticoagulation can not be started till LFT normalizes GI consulted -input appreciated in agreement with holding Dilantin cont to monitor LFT's daily LEFT SHOULDER PAIN : LEFT SHOULDER XRAY SHOWS : 1. Suspected old proximal humeral impaction fracture 2. Calcified loose bodies 3. Probable old fracture arising from the inferior scapular glenoid 4. Conventional radiographic evidence of chronic rotator cuff tear 5. 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 IVF D/erna cont to monitor PRP HTN - BP controlled - continue metoprolol, lisinopril GOUT - continue allopurinol BPH - continue tamsulosin FULL CODE DVT PROPHYLAXIS IV heparin DISPOSITION was at [facility] for acute rehab post intracranial trauma /orbital Fx PT/OT consulted , appreciate input pt will need rehab plan to return back to to complete rehab when medically stable social service following Vital Signs: Date Time Temp Pulse Resp B/P (MAP) Pulse Ox O2 Delivery O2 Flow Rate FiO2 05/05/17 08:00 Room Air 05/05/17 07:55 37.3 83 20 156/88 (110) 94 Room Air 05/05/17 04:13 37.1 75 18 108/56 (73) 94 Room Air 05/05/17 04:00 94 Room Air 05/04/17 23:59 97 Room Air 05/04/17 23:22 36.7 67 17 132/78 (96) 97 Room Air 05/04/17 20:00 Room Air 05/04/17 19:21 36.7 77 16 128/75 (92) 97 Room Air 05/04/17 16:01 36.4 75 18 124/78 (93) 96 Room Air 05/04/17 16:00 98 Room Air Lab Results: Results Past 24 Hours Test 05/04/17 13:44 05/04/17 21:51 05/05/17 04:51 Range/Units Activated Partial Thromboplast Time 63.9 54.7 21.0-31.0 SECONDS Partial Thromboplastin Ratio 2.5 2.1 Bedside Glucose 116 70-99 mg/dl White Blood Count 2.89 4.8-10.8 K/uL Red Blood Count 3.24 4.7-6.1 M/uL Hemoglobin 10.5 14.0-18.0 g/dL Hematocrit 30.4 42-52 % Mean Corpuscular Volume 93.8 80-100 fL Mean Corpuscular Hemoglobin 32.4 25-34 pg Mean Corpuscular Hemoglobin Concent 34.5 32-36 g/dl Platelet Count 115 130-400 K/uL Mean Platelet Volume 9.0 7.4-10.4 fL Neutrophils (%) (Auto) 37.4 % Lymphocytes (%) (Auto) 43.6 % Monocytes (%) (Auto) 13.8 % Eosinophils (%) (Auto) 3.8 % Basophils (%) (Auto) 0.7 % Neutrophils # (Auto) 1.08 1.4-6.5 K/uL Lymphocytes # (Auto) 1.26 1.2-3.4 K/uL Monocytes # (Auto) 0.40 0.11-0.59 K/uL Eosinophils # (Auto) 0.11 0-0.5 K/uL Basophils # (Auto) 0.02 0-0.2 K/uL RDW Standard Deviation 42.7 36.4-46.3 fL RDW Coefficient of Variation 12.5 11.5-14.5 % Immature Granulocyte % (Auto) 0.7 % Immature Granulocyte # (Auto) 0.02 0.00-0.02 K/uL Iron Level 70 35-175 mcg/dl Total Iron Binding Capacity 151 250-450 mcg/dl Total Bilirubin 0.2 0.2-1 mg/dl Direct Bilirubin < 0.1 0-0.2 mg/dl Aspartate Amino Transf (AST/SGOT) 85 15-37 U/L Alanine Aminotransferase (ALT/SGPT) 103 12-78 U/L Alkaline Phosphatase 179 45-117 U/L Total Protein 5.9 6.4-8.2 gm/dl Albumin 2.2 3.4-5.0 gm/dl
[2017-05-04] MEDS: TAMSULOSIN HCL 0.4 MG CAP PO SCH (20:13)
[2017-05-05] VITALS (9 sets, daily range): BP systolic 108–156; BP diastolic 56–88; PULSE 67–83; TEMP 36.3–37.3; O2SAT 94–98; Ht 175.3 cm; Wt 76.0 kg
[2017-05-05 05:07] LABS: BASO % 0.7 %; BASO ABS # 0.02 K/uL (0-0.2); EOS % 3.8 %; EOS ABS # 0.11 K/uL (0-0.5); HEMATOCRIT 30.4 % (42-52); HEMOGLOBIN 10.5 g/dL (14.0-18.0); IG# 0.02 K/uL (0.00-0.02); LYMPH % 43.6 %; LYMPH ABS # 1.26 K/uL (1.2-3.4); MEAN CELL VOLUME 93.8 fL (80-100); MEAN CORPUSCULAR HEMOGLOBIN 32.4 pg (25-34); MEAN CORPUSCULAR HGB CONC 34.5 g/dl (32-36); MONO % 13.8 %; NEUT % 37.4 %; NEUT ABS # 1.08 K/uL (1.4-6.5); PLATELET COUNT 115 K/uL (130-400); RED CELL DISTRIBUTION WIDTH CV 12.5 % (11.5-14.5); RED CELL DISTRIBUTION WIDTH SD 42.7 fL (36.4-46.3); WHITE BLOOD COUNT 2.89 K/uL (4.8-10.8)
[2017-05-05 05:27] LABS: ALBUMIN 2.2 gm/dl (3.4-5.0); ALKALINE PHOSPHATASE 179 U/L (45-117); ALT/SGPT 103 U/L (12-78); AST/SGOT 85 U/L (15-37); PTT PATIENT 54.7 SECONDS (21.0-31.0); TOTAL PROTEIN 5.9 gm/dl (6.4-8.2)
[2017-05-05] MEDS: LEVOTHYROXINE 25 MCG TAB PO SCH (06:02)
[2017-05-05] MEDS: GABAPENTIN 100 MG CAP PO SCH ×3 (06:02→20:33)
[2017-05-05] MEDS: LEVETIRACETAM 500 MG TAB PO SCH ×2 (08:01→20:32)
[2017-05-05] MEDS: THIAMINE HCL 100 MG TAB PO SCH (08:01)
[2017-05-05] MEDS: DEXAMETH OP OPR SCH ×3 (08:01→20:32)
[2017-05-05] MEDS: POLYMYX OPR SCH ×3 (08:01→20:32)
[2017-05-05] MEDS: ALLOPURINOL 300 MG TAB PO SCH (08:01)
[2017-05-05] MEDS: NEOMYCIN OPR SCH ×3 (08:01→20:32)
[2017-05-05] MEDS: METOPROLOL SUCC 50MG EXT REL TAB PO SCH (08:01)
[2017-05-05] MEDS: HEPARIN 25,000 UNIT/500ML D5W 500 ML IV PRN (08:05)
[2017-05-05] MEDS: SODIUM CHLORIDE 0.9% 1000ML 1,000 ML IV SCH (10:02)
--- NOTE | 2017-05-05 12:03 | Progress Note ---
Internal Med Progress Note Date of Service: May 05, 2017. Provider Documentation: SUBJECTIVE: appears to be more oriented today offers no complain , no headache no SOB or chest pain , present at bedside has been tolerating anticoagulation with IV heparin no bleeding complication noted OBJECTIVE: Vital Signs-as noted below Exam: General-elderly male, no apparent distress Eyes-rt eye lid post surgical changes,no drainage noted ENT-moist oral mucosa Neck-trachea midline ,no thyromegaly Lungs-clear to auscultate, no wheeze or rales Heart-regular s1/s2, no JVD , no carotid bruit , no lower ext edema Abdomen-soft, non tender , bowel sound present Extremities-no ankle edema noted , +swelling on inner aspect of rt popliteal area , + pedal pulse Neuro-awake and alert, forgetful, slow to process information , no focal weakness noted Lab data as noted below. ASSESSMENT & PLAN: ACUTE RLE DVT HX TRAUMATIC INTRACRANIAL HEMORRHAGE, RIGHT ORBITAL COMPARTMENT SYNDROME S/P CANTHOTOMY - likely provoked DVT from recent prolonged hospital and rehab stays - patient sent from [facility] for concern of DVT, lower ext Doppler shows : Acute right lower extremity DVT with involvement of the popliteal vein, posterior tibial vein, and peroneal veins. - hx of recent traumatic head injury on 04/08/17 s/p fall leading to rt orbital fx , optic neuropathy, severe compartment syndrome leading to lateral canthotomy and craniotomy to reduce intra ocular pressure in [facility] in [place] pt had a prolong hospital stay from 04/08/17 to 04/19/17 -transferred to [facility] for rehab - head CT preformed in the ED negative for signs of bleeding -per Admitting team : - case was discussed with Dr. Tafoya (neurosurgery) at [facility] - given negative head CT, bleeding risks are considered low - case also discussed with Dr. Palm (ophthalmology) at [facility] - ok to anticoagulate with canthotomy history - - pt started low dose IV heparin - no signs of bleeding so far Repeat CT head with out contrast 05/04/17 : no evidence of Hge or acute change pt will be continued to be monitored closely Ct head check with any evidence of headache or neurological change CT head in 7 days while on anticoagulation Risk and benefit for anticoagulation discussed in detail with Family _daughter and pt was unable to participate in discussion as could not comprehend the informations Given pt's risk for bleeding and fall risk ( had gait disturbance earlier due to Neuropathy worsened after intracranial trauma ) provoked DVt due to prolong immobilization /hospital admission , no pharmacological anticoagulation given due to intracranial hge tx for 3 months with anticoagulation will be safe given no bleeding episode happens during that period pt is on IV heparin , plan to start on PO Coumadin as liver function improves if any bleeding episode occurs -anticoagulation has to be reveres and will need vascular procedure -IVC filter placement ELEVATED LFTs due to Dilantin therapy was started on phenytoin 150 mg TID in [place] for seizure prophylaxis Dilantin has been D/erna , Dilantin level 14.6 on 05/03/2017 LFT continues to improve - RUQ US negative for acute findings neurology consult requested appreciate input started on Keppra 500 mg BID Coumadin anticoagulation can not be started till LFT normalizes GI consulted -input appreciated Dilantin D.erna cont to monitor LFT's daily LEFT SHOULDER PAIN : LEFT SHOULDER XRAY SHOWS : 1. Suspected old proximal humeral impaction fracture 2. Calcified loose bodies 3. Probable old fracture arising from the inferior scapular glenoid 4. Conventional radiographic evidence of chronic rotator cuff tear 5. 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 IVF D/erna cont to monitor PRP HTN - BP controlled - continue metoprolol, lisinopril GOUT - continue allopurinol BPH - continue tamsulosin FULL CODE DVT PROPHYLAXIS IV heparin DISPOSITION was at [facility] for acute rehab post intracranial trauma /orbital Fx PT/OT consulted , appreciate input pt will need rehab plan to return back to to complete rehab when medically stable social service following updated at bedside Vital Signs: Date Time Temp Pulse Resp B/P (MAP) Pulse Ox O2 Delivery O2 Flow Rate FiO2 05/05/17 17:37 Room Air 05/05/17 14:52 36.5 68 18 134/76 (95) 98 Room Air 05/05/17 13:00 97 Room Air 05/05/17 12:59 36.5 67 18 130/79 (96) 97 Room Air 05/05/17 12:30 36.5 67 18 97 05/05/17 11:03 36.3 73 20 133/81 (98) 95 Room Air 05/05/17 08:00 Room Air 05/05/17 07:55 37.3 83 20 156/88 (110) 94 Room Air 05/05/17 04:13 37.1 75 18 108/56 (73) 94 Room Air 05/05/17 04:00 94 Room Air 05/04/17 23:59 97 Room Air 05/04/17 23:22 36.7 67 17 132/78 (96) 97 Room Air Lab Results: Results Past 24 Hours Test 05/05/17 04:51 05/05/17 16:23 Range/Units White Blood Count 2.89 4.8-10.8 K/uL Red Blood Count 3.24 4.7-6.1 M/uL Hemoglobin 10.5 14.0-18.0 g/dL Hematocrit 30.4 42-52 % Mean Corpuscular Volume 93.8 80-100 fL Mean Corpuscular Hemoglobin 32.4 25-34 pg Mean Corpuscular Hemoglobin Concent 34.5 32-36 g/dl Platelet Count 115 130-400 K/uL Mean Platelet Volume 9.0 7.4-10.4 fL Neutrophils (%) (Auto) 37.4 % Lymphocytes (%) (Auto) 43.6 % Monocytes (%) (Auto) 13.8 % Eosinophils (%) (Auto) 3.8 % Basophils (%) (Auto) 0.7 % Neutrophils # (Auto) 1.08 1.4-6.5 K/uL Lymphocytes # (Auto) 1.26 1.2-3.4 K/uL Monocytes # (Auto) 0.40 0.11-0.59 K/uL Eosinophils # (Auto) 0.11 0-0.5 K/uL Basophils # (Auto) 0.02 0-0.2 K/uL RDW Standard Deviation 42.7 36.4-46.3 fL RDW Coefficient of Variation 12.5 11.5-14.5 % Immature Granulocyte % (Auto) 0.7 % Immature Granulocyte # (Auto) 0.02 0.00-0.02 K/uL Activated Partial Thromboplast Time 54.7 21.0-31.0 SECONDS Partial Thromboplastin Ratio 2.1 Iron Level 70 35-175 mcg/dl Total Iron Binding Capacity 151 250-450 mcg/dl Total Bilirubin 0.2 0.2-1 mg/dl Direct Bilirubin < 0.1 0-0.2 mg/dl Aspartate Amino Transf (AST/SGOT) 85 15-37 U/L Alanine Aminotransferase (ALT/SGPT) 103 12-78 U/L Alkaline Phosphatase 179 45-117 U/L Total Protein 5.9 6.4-8.2 gm/dl Albumin 2.2 3.4-5.0 gm/dl Bedside Glucose 118 70-99 mg/dl
--- NOTE | 2017-05-05 12:52 | Gastroenterology Progress Note ---
Progress Note Date of Service: May 05, 2017 Subjective Pt evaluation today including: conversation w/ patient, conversation w/ family (), physical exam, chart review, lab review, review of studies, review of inpatient medication list Mr. Porter is a 45 yr old male admitted on 05/02/15 for DVT; also had fallen in mid March and has been in [facility] or here since then. GI consulted for elevated LFTs thought secondary to Dilantin which was DC'ed 3 days ago. LFTs slowly improving. No abdominal pain, nuasea, vomiting or jaundice. Review of Systems Constitutional: No fever ENT: + problem reported (traumatic right eye injury) Respiratory: No cough Cardiac: No chest pain Abdomen: No pain Male : No dysuria Neuro: No memory loss Psych: No depression symptoms Endo: No fatigue Medications Current Inpatient Medications Medications (Trade) Dose Ordered Sig/Jay Route Start Time Stop Time Status Last Admin Dose Admin Ondansetron HCl (Zofran Inj) 4 mg Q6H PRN IV 05/02/17 18:45 06/01/17 18:44 Heparin Sodium/ Dextrose 500 ml @ 15 mls/hr Q24H PRN IV 05/02/17 19:30 06/01/17 19:29 05/05/17 08:05 15 MLS/HR Allopurinol (Zyloprim Tab) 300 mg DAILY PO 05/03/17 09:00 06/02/17 08:59 05/05/17 08:01 300 MG Gabapentin (Neurontin Cap) 100 mg Q8 PO 05/02/17 22:00 06/01/17 21:59 05/05/17 06:02 100 MG Levothyroxine Sodium (Synthroid Tab) 25 mcg DAILYBB PO 05/03/17 06:00 06/02/17 06:59 05/05/17 06:02 25 MCG Metoprolol Succinate (Toprol Xl Tab) 50 mg DAILY PO 05/03/17 09:00 06/02/17 08:59 05/05/17 08:01 50 MG Neomycin/ Polymyxin/ Dexamethasone (Maxitrol Oph Oint) 1 appln QID OPR 05/02/17 21:00 06/01/17 20:59 05/05/17 08:01 1 APPLN Oxycodone HCl (Roxicodone Immediate Rel Tab) 5 mg Q4 PRN PO 05/02/17 19:30 05/16/17 19:29 Tamsulosin HCl (Flomax Cap) 0.4 mg HS PO 05/02/17 21:00 06/01/17 20:59 05/04/17 20:13 0.4 MG Thiamine HCl (Vitamin B-1 Tab) 50 mg QDB PO 05/03/17 07:30 06/02/17 07:59 05/05/17 08:01 50 MG Polyethylene (Miralax Powder Packet) 17 gm QDL PRN PO 05/02/17 19:30 06/01/17 19:29 Docusate Sodium (coLACE CAP) 100 mg BID PRN PO 05/03/17 21:00 06/01/17 20:59 Levetiracetam (Keppra Tab) 500 mg BID PO 05/03/17 13:45 06/02/17 20:59 05/05/17 08:01 500 MG Acetaminophen (Tylenol Tab) 650 mg Q8 PRN PO 05/03/17 17:45 06/01/17 18:44 Objective Vital Signs Date Time Temp Pulse Resp B/P (MAP) Pulse Ox O2 Delivery O2 Flow Rate FiO2 05/05/17 11:03 36.3 73 20 133/81 (98) 95 Room Air 05/05/17 08:00 Room Air 05/05/17 07:55 37.3 83 20 156/88 (110) 94 Room Air 05/05/17 04:13 37.1 75 18 108/56 (73) 94 Room Air 05/05/17 04:00 94 Room Air 05/04/17 23:59 97 Room Air 05/04/17 23:22 36.7 67 17 132/78 (96) 97 Room Air 05/04/17 20:00 Room Air 05/04/17 19:21 36.7 77 16 128/75 (92) 97 Room Air 05/04/17 16:01 36.4 75 18 124/78 (93) 96 Room Air 05/04/17 16:00 98 Room Air Physical Exam General Appearance: no apparent distress ENT: pharynx normal Neck: thyroid normal, no JVD Respiratory/Chest: lungs clear Cardiovascular: regular rate, rhythm, no JVD, no murmur Abdomen: non tender, soft Neurologic/Psych: alert, normal mood/affect, oriented x 3 Skin: no jaundice Laboratory Results Last 24 Hours Test 05/04/17 13:44 05/04/17 21:51 05/05/17 04:51 Activated Partial Thromboplast Time 63.9 SECONDS 54.7 SECONDS Partial Thromboplastin Ratio 2.5 2.1 Bedside Glucose 116 mg/dl White Blood Count 2.89 K/uL Red Blood Count 3.24 M/uL Hemoglobin 10.5 g/dL Hematocrit 30.4 % Mean Corpuscular Volume 93.8 fL Mean Corpuscular Hemoglobin 32.4 pg Mean Corpuscular Hemoglobin Concent 34.5 g/dl Platelet Count 115 K/uL Mean Platelet Volume 9.0 fL Neutrophils (%) (Auto) 37.4 % Lymphocytes (%) (Auto) 43.6 % Monocytes (%) (Auto) 13.8 % Eosinophils (%) (Auto) 3.8 % Basophils (%) (Auto) 0.7 % Neutrophils # (Auto) 1.08 K/uL Lymphocytes # (Auto) 1.26 K/uL Monocytes # (Auto) 0.40 K/uL Eosinophils # (Auto) 0.11 K/uL Basophils # (Auto) 0.02 K/uL RDW Standard Deviation 42.7 fL RDW Coefficient of Variation 12.5 % Immature Granulocyte % (Auto) 0.7 % Immature Granulocyte # (Auto) 0.02 K/uL Iron Level 70 mcg/dl Total Iron Binding Capacity 151 mcg/dl Total Bilirubin 0.2 mg/dl Direct Bilirubin < 0.1 mg/dl Aspartate Amino Transf (AST/SGOT) 85 U/L Alanine Aminotransferase (ALT/SGPT) 103 U/L Alkaline Phosphatase 179 U/L Total Protein 5.9 gm/dl Albumin 2.2 gm/dl Assessment and Plan Mr. Porter is a 77 yr old male with mild to moderately elevated transaminases, improving since the Dilantin was DC'ed. Ferritin is also high and HFE testing is pending . Plan: 1. Please continue to trend LFTs periodically to resolution. 2. Will review HFE results when available. 3. GI will sign off. Please notify us if increasing LFTs, jaundice or new GI issues.
--- NOTE | 2017-05-05 15:20 | Neurology Progress Notes ---
Neurology Progress Note Date of Service May 05, 2017. Bran Otero is a 77 year old male who was sent to the ED from [facility] for evaluation of possible DVT. 04/08/2017-He was intoxicated and fell into a wood stove suffering injury to his right eye. He was also found to have traumatic, IPH right frontal lobe, Scattered Subarachnoid hemorrhage, Subdural Hemorrhage along bifrontal and right temporal regions that extends into right tentorium, and intraventricular hemorrhage. He was LF from [place] to [place] for management. He also developed compartment syndrome of the right eye and had to undergo emergent canthotomy. There was no surgical intervention for the ICH. On 04/19 he was deems stable and transferred to [facility]. They were concerned that he was not progressing in therapy and was also running low grade fevers. In the ED he was found to have acute right lower extremity DVT with involvement of the popliteal vein, posterior tibial vein, and peroneal veins. He is also found to have elevated LFTs and creatinine. Accord to report his MS has been waxing and weaning since the fall. He states he is feeling better today. His is no the room and states he is close to his baseline. denies CP, SOB, abdominal pain, N, V, headache, some eye pain R Objective Date Time Temp Pulse Resp B/P (MAP) Pulse Ox O2 Delivery O2 Flow Rate FiO2 05/05/17 14:52 36.5 68 18 134/76 (95) 98 Room Air 05/05/17 13:00 97 Room Air 05/05/17 12:59 36.5 67 18 130/79 (96) 97 Room Air 05/05/17 12:30 36.5 67 18 97 05/05/17 11:03 36.3 73 20 133/81 (98) 95 Room Air 05/05/17 08:00 Room Air 05/05/17 07:55 37.3 83 20 156/88 (110) 94 Room Air 05/05/17 04:13 37.1 75 18 108/56 (73) 94 Room Air 05/05/17 04:00 94 Room Air 05/04/17 23:59 97 Room Air 05/04/17 23:22 36.7 67 17 132/78 (96) 97 Room Air 05/04/17 20:00 Room Air 1/11/18 19:21 36.7 77 16 128/75 (92) 97 Room Air 05/04/17 16:01 36.4 75 18 124/78 (93) 96 Room Air 05/04/17 16:00 98 Room Air Last 24 Hours Test 05/04/17 21:51 05/05/17 04:51 Bedside Glucose 116 mg/dl White Blood Count 2.89 K/uL Red Blood Count 3.24 M/uL Hemoglobin 10.5 g/dL Hematocrit 30.4 % Mean Corpuscular Volume 93.8 fL Mean Corpuscular Hemoglobin 32.4 pg Mean Corpuscular Hemoglobin Concent 34.5 g/dl Platelet Count 115 K/uL Mean Platelet Volume 9.0 fL Neutrophils (%) (Auto) 37.4 % Lymphocytes (%) (Auto) 43.6 % Monocytes (%) (Auto) 13.8 % Eosinophils (%) (Auto) 3.8 % Basophils (%) (Auto) 0.7 % Neutrophils # (Auto) 1.08 K/uL Lymphocytes # (Auto) 1.26 K/uL Monocytes # (Auto) 0.40 K/uL Eosinophils # (Auto) 0.11 K/uL Basophils # (Auto) 0.02 K/uL RDW Standard Deviation 42.7 fL RDW Coefficient of Variation 12.5 % Immature Granulocyte % (Auto) 0.7 % Immature Granulocyte # (Auto) 0.02 K/uL Activated Partial Thromboplast Time 54.7 SECONDS Partial Thromboplastin Ratio 2.1 Iron Level 70 mcg/dl Total Iron Binding Capacity 151 mcg/dl Total Bilirubin 0.2 mg/dl Direct Bilirubin < 0.1 mg/dl Aspartate Amino Transf (AST/SGOT) 85 U/L Alanine Aminotransferase (ALT/SGPT) 103 U/L Alkaline Phosphatase 179 U/L Total Protein 5.9 gm/dl Albumin 2.2 gm/dl Imaging: no new imaging Exam: Physical Exam: Constitutional: appearance nourished, normal Ears, Nose, Mouth and Throat: mucous membranes moist, no injection and skin normal, eyes normal Cardiovascular: normal S-1 and S-2 and regular rate and rhythm Respiratory: clear to auscultation (CTA) and no rales, rhonchi or wheeze Musculoskeletal: no peripheral edema and good distal pulses Skin: no stigmata of neurocutaneous disease noted and normal and intact Eyes: extraocular muscles intact (EOMI) and pupils equal, round and reactive to light (PERRL) NEUROLOGIC EXAMINATION: Mental status: Alert and interactive Oriented know he is in [place] Oriented to person Speech fluent with no evidence of aphasia Cranial Nerves right socket and eye deformity Reflexes: Deep tendon reflexes were symmetrical and graded 2/5. Plantar responses were flexor. Sensory: absent GT proprioception bilaterally, decreased vibration sensation to ankle Coordination: finger to nose with no bipass slight essential tremor Gait/Stance: Posture lying in bed Motor: Negative for pronator drift of out stretched arms with eyes closed. Strength: biceps triceps hand creative services intern 5/5 bilaterally, hip flex 4/5, plantar flex ext 4+/5, plantar flex ext 4/5 bilaterally Current Inpatient Medications Medications (Trade) Dose Ordered Sig/Jay Route Start Time Stop Time Status Last Admin Dose Admin Ondansetron HCl (Zofran Inj) 4 mg Q6H PRN IV 05/02/17 18:45 06/01/17 18:44 Heparin Sodium/ Dextrose 500 ml @ 15 mls/hr Q24H PRN IV 05/02/17 19:30 06/01/17 19:29 05/05/17 08:05 15 MLS/HR Allopurinol (Zyloprim Tab) 300 mg DAILY PO 05/03/17 09:00 06/02/17 08:59 05/05/17 08:01 300 MG Gabapentin (Neurontin Cap) 100 mg Q8 PO 05/02/17 22:00 06/01/17 21:59 05/05/17 13:43 100 MG Levothyroxine Sodium (Synthroid Tab) 25 mcg DAILYBB PO 05/03/17 06:00 06/02/17 06:59 05/05/17 06:02 25 MCG Metoprolol Succinate (Toprol Xl Tab) 50 mg DAILY PO 05/03/17 09:00 06/02/17 08:59 05/05/17 08:01 50 MG Neomycin/ Polymyxin/ Dexamethasone (Maxitrol Oph Oint) 1 appln QID OPR 05/02/17 21:00 06/01/17 20:59 05/05/17 08:01 1 APPLN Oxycodone HCl (Roxicodone Immediate Rel Tab) 5 mg Q4 PRN PO 05/02/17 19:30 05/16/17 19:29 Tamsulosin HCl (Flomax Cap) 0.4 mg HS PO 05/02/17 21:00 06/01/17 20:59 05/04/17 20:13 0.4 MG Thiamine HCl (Vitamin B-1 Tab) 50 mg QDB PO 05/03/17 07:30 06/02/17 07:59 05/05/17 08:01 50 MG Polyethylene (Miralax Powder Packet) 17 gm QDL PRN PO 05/02/17 19:30 06/01/17 19:29 Docusate Sodium (coLACE CAP) 100 mg BID PRN PO 05/03/17 21:00 06/01/17 20:59 Levetiracetam (Keppra Tab) 500 mg BID PO 05/03/17 13:45 06/02/17 20:59 05/05/17 08:01 500 MG Acetaminophen (Tylenol Tab) 650 mg Q8 PRN PO 05/03/17 17:45 06/01/17 18:44 Impression 77 year old male fall from standing 04/08/2017, ICH, seizure medications started , elevated liver enzymes, need to switch to renal clearance Plan 1. CT head no ICH noted on recent scan- repeat no change 05/04/2017 2. Dilantin currently held 3. Dilantin level with last check 14.6 05/03/2017 4. Keppra started at 500 mg q 12 hours 5. continue hydration 6. once LFT's are normalized will start heparin bridge to Coumadin-mildly improved 7. would repeat CT head once coagulation is started then with MS change and in 7 days 8. spoke with Jay Roamn MD neurosurgery [place], ok to taper off Dilantin but would start an AED due to presumed seizure activity which was not discovered on EEG. 9. left shoulder pain- may need xray to evaluate if not previously done 10. will need a follow up with [facility] once discharged from rehab. ( [place]), and neurology [place] in 2-3 weeks after discharged from rehab 11. discussed with EtOH cessation needed. 12. will sign off for now I have seen and discussed above patient with Dr Curry Liz, neurology Patient improved no seizures off dilantin and on keppra we will sign off now and see in clinic as outlined above by Spenser Liz MD
[2017-05-05] MEDS: TAMSULOSIN HCL 0.4 MG CAP PO SCH (20:33)
[2017-05-05] MEDS: ACETAMINOPHEN 325 MG TAB PO PRN (22:26)
[2017-05-06 04:00] VITALS: BP 147/77; PULSE 68; TEMP 36.8; O2SAT 98
[2017-05-06] MEDS: GABAPENTIN 100 MG CAP PO SCH ×3 (05:36→20:59)
[2017-05-06] MEDS: LEVOTHYROXINE 25 MCG TAB PO SCH (05:36)
[2017-05-06 07:38] VITALS: BP 153/83; PULSE 65; TEMP 36.7; O2SAT 97
[2017-05-06] MEDS: LEVETIRACETAM 500 MG TAB PO SCH ×2 (07:54→20:05)
[2017-05-06] MEDS: METOPROLOL SUCC 50MG EXT REL TAB PO SCH (07:55)
[2017-05-06] MEDS: THIAMINE HCL 100 MG TAB PO SCH (07:55)
[2017-05-06] MEDS: ALLOPURINOL 300 MG TAB PO SCH (07:55)
[2017-05-06] MEDS: POLYMYX OPR SCH ×4 (07:56→20:05)
[2017-05-06] MEDS: DEXAMETH OP OPR SCH ×4 (07:56→20:05)
[2017-05-06] MEDS: NEOMYCIN OPR SCH ×4 (07:56→20:05)
[2017-05-06 08:00] VITALS: O2SAT 97
[2017-05-06 10:00] LABS: PTT PATIENT 45.4 SECONDS (21.0-31.0)
[2017-05-06 10:02] LABS: ALBUMIN 2.3 gm/dl (3.4-5.0); ALKALINE PHOSPHATASE 198 U/L (45-117); ALT/SGPT 99 U/L (12-78); AST/SGOT 79 U/L (15-37); TOTAL PROTEIN 6.5 gm/dl (6.4-8.2)
[2017-05-06] MEDS ORDERED: HEPARIN IV BOLUS 3,000 UNIT in SYRINGE 0 ML IV ONE (11:00)
[2017-05-06] MEDS: HEPARIN 25,000 UNIT/500ML D5W 500 ML IV PRN ×2 (11:35→18:14)
[2017-05-06 14:34] LABS: ANA SCREEN TC 249X NEGATIVE (NEGATIVE); HEPATITIS A IGM TC 51813E NON-REACTIVE (NON-REACTIVE); HEPATITIS B CORE IGM TC51854R NON-REACTIVE (NON-REACTIVE)
[2017-05-06 15:03] VITALS: BP 125/75; PULSE 78; TEMP 36.6; O2SAT 95
[2017-05-06 16:00] VITALS: O2SAT 95
[2017-05-06] MEDS: OXYCODONE HCL IR 5 MG TAB (IMMEDIATE RELEASE) PO PRN ×2 (16:13→20:58)
[2017-05-06 18:32] LABS: PTT PATIENT 57.1 SECONDS (21.0-31.0)
--- NOTE | 2017-05-06 19:08 | Progress Note ---
Internal Med Progress Note Date of Service: May 06, 2017. Provider Documentation: SUBJECTIVE: OBJECTIVE: Vital Signs-as noted below Exam: General-elderly male, no apparent distress Eyes-rt eye lid post surgical changes,no drainage noted ENT-moist oral mucosa Neck-trachea midline ,no thyromegaly Lungs-clear to auscultate, no wheeze or rales Heart-regular s1/s2, no JVD , no carotid bruit , no lower ext edema Abdomen-soft, non tender , bowel sound present Extremities-no ankle edema noted , +swelling on inner aspect of rt popliteal area , + pedal pulse Neuro-awake and alert, forgetful, slow to process information , no focal weakness noted Lab data as noted below. ASSESSMENT & PLAN: ACUTE RLE DVT HX TRAUMATIC INTRACRANIAL HEMORRHAGE, RIGHT ORBITAL COMPARTMENT SYNDROME S/P CANTHOTOMY - likely provoked DVT from recent prolonged hospital and rehab stays - patient sent from [facility] for concern of DVT, lower ext Doppler shows : Acute right lower extremity DVT with involvement of the popliteal vein, posterior tibial vein, and peroneal veins. - hx of recent traumatic head injury on 04/08/17 s/p fall leading to rt orbital fx , optic neuropathy, severe compartment syndrome leading to lateral canthotomy and craniotomy to reduce intra ocular pressure in [facility] in [place] pt had a prolong hospital stay from 04/08/17 to 04/19/17 -transferred to [facility] for rehab - head CT preformed in the ED negative for signs of bleeding -per Admitting team : - case was discussed with Dr. Tafoya (neurosurgery) at [facility] - given negative head CT, bleeding risks are considered low - case also discussed with Dr. Palm (ophthalmology) at [facility] - ok to anticoagulate with canthotomy history - - pt has been tolerating low dose IV heparin - no signs of bleeding so far Repeat CT head with out contrast 05/04/17 : no evidence of Hge or acute change pt will be continued to be monitored closely Ct head check with any evidence of headache or neurological change CT head in 7 days while on anticoagulation Risk and benefit for anticoagulation discussed in detail with Family _daughter and pt was unable to participate in discussion as could not comprehend the informations Given pt's risk for bleeding and fall risk ( had gait disturbance earlier due to Neuropathy worsened after intracranial trauma ) provoked DVt due to prolong immobilization /hospital admission , no pharmacological anticoagulation given due to intracranial hge tx for 3 months with anticoagulation will be safe given no bleeding episode happens during that period pt is on IV heparin , plan to start on PO Coumadin as liver function improves if any bleeding episode occurs -anticoagulation has to be reveres and will need vascular procedure -IVC filter placement ELEVATED LFTs due to Dilantin therapy was started on phenytoin 150 mg TID in [place] for seizure prophylaxis Dilantin has been D/erna , Dilantin level 14.6 on 05/03/2017 LFT continues to improve AST : 147-> 114-> 103-> 85-> 79 ALT :165-> 130-> 119-> 103-> 99 WILL POSSIBLE START ON LOW DOSE COUMADIN 2 MG DAILY IF LIVER FUNCTION IMPROVES/ NORMALIZES - RUQ US negative for acute findings neurology consult requested appreciate input Dilantin D.erna started on Keppra 500 mg BID GI consulted -input appreciated LEFT SHOULDER PAIN : LEFT SHOULDER XRAY SHOWS : 1. Suspected old proximal humeral impaction fracture 2. Calcified loose bodies 3. Probable old fracture arising from the inferior scapular glenoid 4. Conventional radiographic evidence of chronic rotator cuff tear 5. 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 IVF D/erna cont to monitor PRP HTN - BP controlled - continue metoprolol, lisinopril GOUT - continue allopurinol BPH - continue tamsulosin FULL CODE DVT PROPHYLAXIS IV heparin DISPOSITION was at [facility]placed [facility] for acute rehab post intracranial trauma /orbital Fx PT/OT consulted , appreciate input pt will need rehab plan to return back to to complete rehab when medically stable social service following updated over phone Vital Signs: Date Time Temp Pulse Resp B/P (MAP) Pulse Ox O2 Delivery O2 Flow Rate FiO2 05/06/17 16:00 95 Room Air 05/06/17 15:03 36.6 78 20 125/75 (92) 95 Room Air 05/06/17 08:00 97 Room Air 05/06/17 07:38 36.7 65 18 153/83 (106) 97 Room Air 05/06/17 04:00 36.8 68 18 147/77 (100) 98 Room Air 05/06/17 00:00 Room Air 05/05/17 23:43 36.8 67 20 145/83 (103) 95 Room Air Lab Results: Results Past 24 Hours Test 05/06/17 07:50 05/06/17 08:40 05/06/17 11:54 05/06/17 16:35 Range/Units Bedside Glucose 93 145 121 70-99 mg/dl Activated Partial Thromboplast Time 45.4 21.0-31.0 SECONDS Partial Thromboplastin Ratio 1.7 Total Bilirubin 0.3 0.2-1 mg/dl Direct Bilirubin < 0.1 0-0.2 mg/dl Aspartate Amino Transf (AST/SGOT) 79 15-37 U/L Alanine Aminotransferase (ALT/SGPT) 99 12-78 U/L Alkaline Phosphatase 198 45-117 U/L Total Protein 6.5 6.4-8.2 gm/dl Albumin 2.3 3.4-5.0 gm/dl Test 05/06/17 17:23 05/06/17 20:05 Range/Units Activated Partial Thromboplast Time 57.1 21.0-31.0 SECONDS Partial Thromboplastin Ratio 2.2 Bedside Glucose 144 70-99 mg/dl
[2017-05-06] MEDS: TAMSULOSIN HCL 0.4 MG CAP PO SCH (20:59)
[2017-05-06 23:50] VITALS: BP 155/83; PULSE 83; TEMP 36.8; O2SAT 97
[2017-05-07] MEDS: LEVOTHYROXINE 25 MCG TAB PO SCH (06:19)
[2017-05-07] MEDS: GABAPENTIN 100 MG CAP PO SCH ×3 (06:19→20:34)
[2017-05-07 06:37] LABS: PTT PATIENT 42.6 SECONDS (21.0-31.0)
[2017-05-07 06:41] LABS: ALBUMIN 2.4 gm/dl (3.4-5.0); TOTAL PROTEIN 6.3 gm/dl (6.4-8.2)
[2017-05-07 07:35] VITALS: BP 159/87; PULSE 81; TEMP 36.8; O2SAT 94
[2017-05-07] MEDS: ALLOPURINOL 300 MG TAB PO SCH (07:52)
[2017-05-07] MEDS: NEOMYCIN OPR SCH ×4 (07:52→20:33)
[2017-05-07] MEDS: LEVETIRACETAM 500 MG TAB PO SCH ×2 (07:52→20:33)
[2017-05-07] MEDS: METOPROLOL SUCC 50MG EXT REL TAB PO SCH (07:52)
[2017-05-07] MEDS: POLYMYX OPR SCH ×4 (07:52→20:33)
[2017-05-07] MEDS: THIAMINE HCL 100 MG TAB PO SCH (07:52)
[2017-05-07] MEDS: DEXAMETH OP OPR SCH ×4 (07:52→20:33)
[2017-05-07] MEDS: OXYCODONE HCL IR 5 MG TAB (IMMEDIATE RELEASE) PO PRN (07:56)
[2017-05-07 08:00] VITALS: O2SAT 94
[2017-05-07] MEDS ORDERED: HEPARIN IV BOLUS 3,000 UNIT in SYRINGE 0 ML IV ONE (08:00)
[2017-05-07] MEDS: HEPARIN 25,000 UNIT/500ML D5W 500 ML IV PRN (08:34)
[2017-05-07 15:14] LABS: PTT PATIENT 47.1 SECONDS (21.0-31.0)
[2017-05-07 15:33] VITALS: BP 142/76; PULSE 73; TEMP 36.7; O2SAT 98
[2017-05-07] MEDS: ACETAMINOPHEN 325 MG TAB PO PRN (16:05)
[2017-05-07] MEDS: TAMSULOSIN HCL 0.4 MG CAP PO SCH (20:33)
--- NOTE | 2017-05-07 20:35 | Progress Note ---
Internal Med Progress Note Date of Service: May 07, 2017. Provider Documentation: SUBJECTIVE: complained of pain in shoulder better now no SOB , no fever or chills OBJECTIVE: Vital Signs-as noted below Exam: General-elderly male, no apparent distress Eyes-rt eye lid post surgical changes,no drainage noted ENT-moist oral mucosa Neck-trachea midline ,no thyromegaly Lungs-clear to auscultate, no wheeze or rales Heart-regular s1/s2, no JVD , no carotid bruit , no lower ext edema Abdomen-soft, non tender , bowel sound present Extremities-no ankle edema noted , +swelling on inner aspect of rt popliteal area , + pedal pulse Neuro-awake and alert, forgetful, slow to process information , no focal weakness noted Lab data as noted below. ASSESSMENT & PLAN: ACUTE RLE DVT HX TRAUMATIC INTRACRANIAL HEMORRHAGE, RIGHT ORBITAL COMPARTMENT SYNDROME S/P CANTHOTOMY - likely provoked DVT from recent prolonged hospital and rehab stays - patient sent from [facility] for concern of DVT, lower ext Doppler shows : Acute right lower extremity DVT with involvement of the popliteal vein, posterior tibial vein, and peroneal veins. - hx of recent traumatic head injury on 04/08/17 s/p fall leading to rt orbital fx , optic neuropathy, severe compartment syndrome leading to lateral canthotomy and craniotomy to reduce intra ocular pressure in [facility] in [place] pt had a prolong hospital stay from 04/08/17 to 04/19/17 -transferred to [facility] for rehab - head CT preformed in the ED negative for signs of bleeding -per Admitting team : - case was discussed with Dr. Tafoya (neurosurgery) at [facility] - given negative head CT, bleeding risks are considered low - case also discussed with Dr. Palm (ophthalmology) at [facility] - ok to anticoagulate with canthotomy history - - pt has been tolerating low dose IV heparin - no signs of bleeding so far Repeat CT head with out contrast 05/04/17 : no evidence of Hge or acute change pt will be continued to be monitored closely Ct head check with any evidence of headache or neurological change CT head in 7 days while on anticoagulation Risk and benefit for anticoagulation discussed in detail with Family _daughter and pt was unable to participate in discussion as could not comprehend the informations Given pt's risk for bleeding and fall risk ( had gait disturbance earlier due to Neuropathy worsened after intracranial trauma ) provoked DVt due to prolong immobilization /hospital admission , no pharmacological anticoagulation given due to intracranial hge tx for 3 months with anticoagulation will be safe given no bleeding episode happens during that period pt is on IV heparin , plan to start on PO Coumadin as liver function improves if any bleeding episode occurs -anticoagulation has to be reveres and will need vascular procedure -IVC filter placement ELEVATED LFTs due to Dilantin therapy was started on phenytoin 150 mg TID in [place] for seizure prophylaxis Dilantin has been D/erna , Dilantin level 14.6 on 05/03/2017 LFT minimally worsened today AST : 147-> 114-> 103-> 85-> 79-> 88 ALT :165-> 130-> 119-> 103-> 99-> 111 Coumadin not started today will order Gentle IVF repeat LFT 's in AM pt will be started on LOW DOSE COUMADIN 2 MG DAILY IF LIVER FUNCTION IMPROVES/ NORMALIZES - RUQ US negative for acute findings neurology consult requested appreciate input Dilantin D.erna started on Keppra 500 mg BID GI consulted -input appreciated LEFT SHOULDER PAIN : LEFT SHOULDER XRAY SHOWS : 1. Suspected old proximal humeral impaction fracture 2. Calcified loose bodies 3. Probable old fracture arising from the inferior scapular glenoid 4. Conventional radiographic evidence of chronic rotator cuff tear 5. No acute fractures or dislocations identified appreciate input form Orthopedics : chronic Fx with rupture tendon May benefit with subacromial steroid injection if develops intractable pain no further orthopedic intervention indicated pt was given Oxycodone earlier for shoulder pain appeared to more confused today hold Narcotics given recent traumatic brain injury /encephalopathy -all narcotics /sedatives should be avoided ordered for PRN Toradol and Tylenol ; can be used alternately CLAUDIA -resolved - likely prerenal; family reports appetite has been poor - creat 1.4 (baseline 1.0) improved to baseline 0.88 ; D/c IVF - Resumed lisinopril 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 IVF D/erna cont to monitor PRP HTN - BP controlled - continue metoprolol, lisinopril GOUT - continue allopurinol BPH - continue tamsulosin FULL CODE DVT PROPHYLAXIS IV heparin DISPOSITION was at [facility]placed By [facility] for acute rehab post intracranial trauma /orbital Fx PT/OT consulted , appreciate input pt will need rehab plan to return back to to complete rehab when medically stable social service following [place] updated over phone Vital Signs: Date Time Temp Pulse Resp B/P (MAP) Pulse Ox O2 Delivery O2 Flow Rate FiO2 05/07/17 16:00 Room Air 05/07/17 15:33 36.7 73 20 142/76 (98) 98 Room Air 05/07/17 08:00 94 Room Air 05/07/17 07:35 36.8 81 18 159/87 (111) 94 Room Air 05/07/17 00:00 Room Air 05/06/17 23:50 36.8 83 17 155/83 (107) 97 Room Air Lab Results: Results Past 24 Hours Test 05/07/17 05:29 05/07/17 07:51 05/07/17 11:50 05/07/17 14:40 Range/Units Activated Partial Thromboplast Time 42.6 47.1 21.0-31.0 SECONDS Partial Thromboplastin Ratio 1.6 1.8 Total Bilirubin 0.3 0.2-1 mg/dl Direct Bilirubin 0.1 0-0.2 mg/dl Aspartate Amino Transf (AST/SGOT) 84 15-37 U/L Alanine Aminotransferase (ALT/SGPT) 111 12-78 U/L Alkaline Phosphatase 195 45-117 U/L Total Protein 6.3 6.4-8.2 gm/dl Albumin 2.4 3.4-5.0 gm/dl Bedside Glucose 116 131 70-99 mg/dl Test 05/07/17 16:51 05/07/17 20:31 Range/Units Bedside Glucose 149 177 70-99 mg/dl
[2017-05-07] MEDS ORDERED: SODIUM CHLORIDE 0.9% 1000ML 1,000 ML IV SCH (21:30)
[2017-05-08 00:01] VITALS: BP 97/66; PULSE 83; TEMP 36.5; O2SAT 97
[2017-05-08] MEDS: HEPARIN 25,000 UNIT/500ML D5W 500 ML IV PRN ×2 (00:34→08:19)
[2017-05-08] MEDS: GABAPENTIN 100 MG CAP PO SCH ×3 (05:49→20:41)
[2017-05-08] MEDS: LEVOTHYROXINE 25 MCG TAB PO SCH (05:49)
[2017-05-08 07:20] LABS: HEMATOCRIT 28.1 % (42-52); MEAN CELL VOLUME 92.4 fL (80-100); MEAN CORPUSCULAR HEMOGLOBIN 32.9 pg (25-34); MEAN CORPUSCULAR HGB CONC 35.6 g/dl (32-36); MEAN PLATELET VOLUME 8.9 fL (7.4-10.4); PLATELET COUNT 197 K/uL (130-400); RED CELL DISTRIBUTION WIDTH CV 12.6 % (11.5-14.5); RED CELL DISTRIBUTION WIDTH SD 42.8 fL (36.4-46.3); WHITE BLOOD COUNT 6.95 K/uL (4.8-10.8)
[2017-05-08 07:31] VITALS: BP 127/66; PULSE 97; TEMP 36.8; O2SAT 96
[2017-05-08 07:55] LABS: ALBUMIN 2.3 gm/dl (3.4-5.0); CALCIUM 8.9 mg/dl (8.5-10.1); CREATININE 0.63 mg/dl (0.60-1.40); POTASSIUM 3.5 mmol/L (3.5-5.1)
[2017-05-08 07:58] LABS: TOTAL PROTEIN 6.3 gm/dl (6.4-8.2)
[2017-05-08] MEDS: NEOMYCIN OPR SCH ×4 (08:06→20:40)
[2017-05-08] MEDS: THIAMINE HCL 100 MG TAB PO SCH (08:06)
[2017-05-08] MEDS: POLYMYX OPR SCH ×4 (08:06→20:40)
[2017-05-08] MEDS: LEVETIRACETAM 500 MG TAB PO SCH ×2 (08:06→20:40)
[2017-05-08] MEDS: DEXAMETH OP OPR SCH ×4 (08:06→20:40)
[2017-05-08] MEDS: METOPROLOL SUCC 50MG EXT REL TAB PO SCH (08:06)
[2017-05-08] MEDS: ALLOPURINOL 300 MG TAB PO SCH (08:06)
[2017-05-08] MEDS ORDERED: HEPARIN IV BOLUS 4,500 UNIT in SYRINGE 0 ML IV ONE (08:15)
[2017-05-08 11:57] VITALS: TEMP 37.7
[2017-05-08 14:56] LABS: PTT PATIENT 49.9 SECONDS (21.0-31.0)
--- NOTE | 2017-05-08 15:26 | DIAGNOSTIC IMAGING REPORT ---
CHEST ONE VIEW PORTABLE HISTORY: Fever. r/o pna COMPARISON: Chest 05/02/2017. FINDINGS: There are low lung volumes. The heart is borderline enlarged. Tortuous thoracic aorta. No pleural effusions. No pneumothorax. No new focal lung consolidations to suggest pneumonia. No evidence for pulmonary edema. IMPRESSION: 1. No focal lung consolidations to suggest pneumonia. 2. Low lung volumes. Electronically signed by: Mason Patel M.D. 05/08/2017 3:25 PM Dictated Date/Time: 05/08/2017 3:24 PM
--- NOTE | 2017-05-08 15:41 | DIAGNOSTIC IMAGING REPORT ---
HEAD CT NONCONTRAST CT DOSE: 614.27 mGy.cm HISTORY: Altered mental status. TECHNIQUE: Multiaxial CT images of the head were performed without the use of intravenous contrast. Automated exposure control was utilized for this study. A dose lowering technique was utilized adhering to the principles of ALARA. Comparison: Head CT 05/04/2017. Findings: Brain parenchyma: Low-attenuation is identified within the right frontal lobe posterior to the right orbit. There are age-related involutional changes noting mild subcortical and periventricular microangiopathic change. There is no hemorrhage, mass effect, or evidence of acute territorial ischemia by CT criteria. [place]-white matter is preserved. No extra-axial fluid collection is seen. Ventricles, sulci, cisterns: Mild ventriculomegaly, unchanged. Intracranial vasculature: There is atherosclerotic calcification of the cavernous carotid and vertebral arteries. Calvarium: The skeletal structures are osteopenic. No depressed calvarial fracture is seen. Sinuses and mastoids: Mild mucosal thickening is seen in the left maxillary antrum and the ethmoid sinuses. The remaining visualized paranasal sinuses are clear. The mastoid air cells are well pneumatized. Orbits: There is an age indeterminant and possibly subacute comminuted fracture of the right orbit with posteriorly displaced fragments. The left bony orbit is grossly intact. IMPRESSION: 1. There is no hemorrhage, mass effect, or evidence of acute territorial ischemia by CT criteria. 2. Again seen is is an age indeterminant and possibly subacute comminuted fracture of the right posterior orbit with posteriorly distracted fragments. 3. Low-attenuation is again identified within the right frontal lobe posterior to the right orbit, likely representing encephalomalacia. 4. Stable mild ventriculomegaly. Electronically signed by: Mason Patel M.D. 05/08/2017 3:40 PM Dictated Date/Time: 05/08/2017 3:36 PM
[2017-05-08] MEDS: WARFARIN SOD 5 MG TAB PO SCH (16:20)
[2017-05-08] MEDS ORDERED: BOOST VANILLA PO SCH (17:00)
[2017-05-08 17:14] VITALS: BP 167/88; PULSE 102; TEMP 37.6; O2SAT 93
--- NOTE | 2017-05-08 19:06 | Progress Note ---
Subjective Date of Service: May 08, 2017. Subjective Pt evaluation today including: conversation w/ patient, conversation w/ family , physical exam, lab review, review of studies, review of inpatient medication list Saw/examined the patient in room 453 he is more withdrawn; No pain anywhere; denies shortness of breath denies headache Review of Systems Respiratory: No cough, No sputum, No shortness of breath Cardiac: No chest pain Abdomen: No nausea, No vomiting, No diarrhea Medications Current Inpatient Medications Medications (Trade) Dose Ordered Sig/Jay Route Start Time Stop Time Status Last Admin Dose Admin Ondansetron HCl (Zofran Inj) 4 mg Q6H PRN IV 05/02/17 18:45 06/01/17 18:44 Heparin Sodium/ Dextrose 500 ml @ 17 mls/hr Q24H PRN IV 05/02/17 19:30 06/01/17 19:29 05/08/17 08:19 20 MLS/HR Allopurinol (Zyloprim Tab) 300 mg DAILY PO 05/03/17 09:00 06/02/17 08:59 05/08/17 08:06 300 MG Gabapentin (Neurontin Cap) 100 mg Q8 PO 05/02/17 22:00 06/01/17 21:59 05/08/17 13:40 100 MG Levothyroxine Sodium (Synthroid Tab) 25 mcg DAILYBB PO 05/03/17 06:00 06/02/17 06:59 05/08/17 05:49 25 MCG Metoprolol Succinate (Toprol Xl Tab) 50 mg DAILY PO 05/03/17 09:00 06/02/17 08:59 05/08/17 08:06 50 MG Neomycin/ Polymyxin/ Dexamethasone (Maxitrol Oph Oint) 1 appln QID OPR 05/02/17 21:00 06/01/17 20:59 05/08/17 16:21 1 APPLN Tamsulosin HCl (Flomax Cap) 0.4 mg HS PO 05/02/17 21:00 06/01/17 20:59 05/07/17 20:33 0.4 MG Thiamine HCl (Vitamin B-1 Tab) 50 mg QDB PO 05/03/17 07:30 06/02/17 07:59 05/08/17 08:06 50 MG Polyethylene (Miralax Powder Packet) 17 gm QDL PRN PO 05/02/17 19:30 06/01/17 19:29 Docusate Sodium (coLACE CAP) 100 mg BID PRN PO 05/03/17 21:00 06/01/17 20:59 Levetiracetam (Keppra Tab) 500 mg BID PO 05/03/17 13:45 06/02/17 20:59 05/08/17 08:06 500 MG Acetaminophen (Tylenol Tab) 650 mg Q8 PRN PO 05/03/17 17:45 06/01/17 18:44 05/07/17 16:05 650 MG Ketorolac Tromethamine (Toradol Tab) 10 mg TID PRN PO 05/07/17 21:30 05/12/17 21:29 Warfarin Sodium (Coumadin Tab) 5 mg DAILY@16 PO 05/08/17 16:00 06/07/17 15:59 05/08/17 16:20 5 MG Enteral Nutritional Formula (Boost) 1 can BID PO 05/08/17 20:00 06/07/17 19:59 Objective Vital Signs Date Time Temp Pulse Resp B/P (MAP) Pulse Ox O2 Delivery O2 Flow Rate FiO2 05/08/17 17:14 37.6 102 20 167/88 (114) 93 Room Air 05/08/17 16:00 Room Air 05/08/17 11:57 37.7 05/08/17 08:45 Room Air 05/08/17 07:31 36.8 97 20 127/66 (86) 96 Room Air 05/08/17 00:15 Room Air 05/08/17 00:01 36.5 83 19 97/66 (76) 97 Room Air Physical Exam General Appearance: + pertinent finding (+withdrawn, +fatigue) Respiratory/Chest: no respiratory distress, no accessory muscle use Cardiovascular: regular rate, rhythm, no edema, no gallop, no JVD, no murmur Extremities: normal inspection, no pedal edema Neurologic/Psychiatric: alert Laboratory Results Last 24 Hours Test 05/07/17 20:31 05/08/17 07:00 05/08/17 07:57 05/08/17 11:53 Bedside Glucose 177 mg/dl 126 mg/dl 194 mg/dl White Blood Count 6.95 K/uL Red Blood Count 3.04 M/uL Hemoglobin 10.0 g/dL Hematocrit 28.1 % Mean Corpuscular Volume 92.4 fL Mean Corpuscular Hemoglobin 32.9 pg Mean Corpuscular Hemoglobin Concent 35.6 g/dl RDW Standard Deviation 42.8 fL RDW Coefficient of Variation 12.6 % Platelet Count 197 K/uL Mean Platelet Volume 8.9 fL Activated Partial Thromboplast Time 38.0 SECONDS Partial Thromboplastin Ratio 1.5 Sodium Level 137 mmol/L Potassium Level 3.5 mmol/L Chloride Level 108 mmol/L Carbon Dioxide Level 21 mmol/L Anion Gap 8.0 mmol/L Blood Urea Nitrogen 11 mg/dl Creatinine 0.63 mg/dl Est Creatinine Clear Calc Drug Dose 101.4 ml/min Estimated GFR () 111.7 Estimated GFR (Non- 96.4 BUN/Creatinine Ratio 16.8 Random Glucose 132 mg/dl Calcium Level 8.9 mg/dl Total Bilirubin 0.4 mg/dl Direct Bilirubin 0.1 mg/dl Aspartate Amino Transf (AST/SGOT) 67 U/L Alanine Aminotransferase (ALT/SGPT) 100 U/L Alkaline Phosphatase 179 U/L Total Protein 6.3 gm/dl Albumin 2.3 gm/dl Test 05/08/17 14:21 05/08/17 17:06 Activated Partial Thromboplast Time 49.9 SECONDS Partial Thromboplastin Ratio 1.9 Bedside Glucose 214 mg/dl Assessment and Plan ACUTE RLE DVT HX TRAUMATIC INTRACRANIAL HEMORRHAGE, RIGHT ORBITAL COMPARTMENT SYNDROME S/P CANTHOTOMY 05/08 plan is for IV heparin to Coumadin bridge will give first dose of Coumadin today 05/07 - likely provoked DVT from recent prolonged hospital and rehab stays - patient sent from [facility] for concern of DVT, lower ext Doppler shows : Acute right lower extremity DVT with involvement of the popliteal vein, posterior tibial vein, and peroneal veins. - hx of recent traumatic head injury on 04/08/17 s/p fall leading to rt orbital fx , optic neuropathy, severe compartment syndrome leading to lateral canthotomy and craniotomy to reduce intra ocular pressure in [facility] in [place] pt had a prolong hospital stay from 04/08/17 to 04/19/17 -transferred to [facility] for rehab - head CT preformed in the ED negative for signs of bleeding -per Admitting team : - case was discussed with Dr. Tafoya (neurosurgery) at [facility] - given negative head CT, bleeding risks are considered low - case also discussed with Dr. Palm (ophthalmology) at [facility] - ok to anticoagulate with canthotomy history - - pt has been tolerating low dose IV heparin - no signs of bleeding so far Repeat CT head with out contrast 05/04/17 : no evidence of Hge or acute change pt will be continued to be monitored closely Ct head check with any evidence of headache or neurological change CT head in 7 days while on anticoagulation Risk and benefit for anticoagulation discussed in detail with Family _daughter and pt was unable to participate in discussion as could not comprehend the informations Given pt's risk for bleeding and fall risk ( had gait disturbance earlier due to Neuropathy worsened after intracranial trauma ) provoked DVt due to prolong immobilization /hospital admission , no pharmacological anticoagulation given due to intracranial hge tx for 3 months with anticoagulation will be safe given no bleeding episode happens during that period pt is on IV heparin , plan to start on PO Coumadin as liver function improves if any bleeding episode occurs -anticoagulation has to be reveres and will need vascular procedure -IVC filter placement ELEVATED LFTs due to Dilantin therapy was started on phenytoin 150 mg TID in [place] for seizure prophylaxis Dilantin has been D/erna , Dilantin level 14.6 on 05/03/2017 LFT minimally worsened today AST : 147-> 114-> 103-> 85-> 79-> 88 ALT :165-> 130-> 119-> 103-> 99-> 111 Coumadin not started today will order Gentle IVF repeat LFT 's in AM pt will be started on LOW DOSE COUMADIN 2 MG DAILY IF LIVER FUNCTION IMPROVES/ NORMALIZES - RUQ US negative for acute findings neurology consult requested appreciate input Dilantin D.erna started on Keppra 500 mg BID GI consulted -input appreciated LEFT SHOULDER PAIN : LEFT SHOULDER XRAY SHOWS : 1. Suspected old proximal humeral impaction fracture 2. Calcified loose bodies 3. Probable old fracture arising from the inferior scapular glenoid 4. Conventional radiographic evidence of chronic rotator cuff tear 5. No acute fractures or dislocations identified appreciate input form Orthopedics : chronic Fx with rupture tendon May benefit with subacromial steroid injection if develops intractable pain no further orthopedic intervention indicated pt was given Oxycodone earlier for shoulder pain appeared to more confused today hold Narcotics given recent traumatic brain injury /encephalopathy -all narcotics /sedatives should be avoided ordered for PRN Toradol and Tylenol ; can be used alternately CLAUDIA -resolved - likely prerenal; family reports appetite has been poor - creat 1.4 (baseline 1.0) improved to baseline 0.88 ; D/c IVF - Resumed lisinopril 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
[2017-05-08] MEDS: BOOST VANILLA PO SCH (20:00)
[2017-05-08] MEDS: TAMSULOSIN HCL 0.4 MG CAP PO SCH (20:40)
[2017-05-08 21:12] VITALS: BP 153/80; PULSE 98; TEMP 36.5; O2SAT 93
[2017-05-09 00:45] VITALS: BP 153/77; PULSE 93; TEMP 37.1; O2SAT 94
[2017-05-09] MEDS: HEPARIN 25,000 UNIT/500ML D5W 500 ML IV PRN ×2 (02:42→06:49)
[2017-05-09 06:24] LABS: INR 1.1 (0.9-1.1); PTT PATIENT 39.1 SECONDS (21.0-31.0)
[2017-05-09 06:47] LABS: ALBUMIN 2.1 gm/dl (3.4-5.0); CREATININE 0.83 mg/dl (0.60-1.40); POTASSIUM 3.6 mmol/L (3.5-5.1)
[2017-05-09 06:51] LABS: TOTAL PROTEIN 6.5 gm/dl (6.4-8.2)
[2017-05-09] MEDS ORDERED: HEPARIN IV BOLUS 4,500 UNIT in SYRINGE 0 ML IV ONE (07:00)
[2017-05-09 07:55] VITALS: BP 165/81; PULSE 94; TEMP 37.1; O2SAT 93
[2017-05-09] MEDS: LEVOTHYROXINE 25 MCG TAB PO SCH (09:07)
[2017-05-09] MEDS: KETOROLAC TROMETHAMINE 10 MG TAB PO PRN (09:07)
[2017-05-09] MEDS: LEVETIRACETAM 500 MG TAB PO SCH ×2 (09:07→21:07)
[2017-05-09] MEDS: METOPROLOL SUCC 50MG EXT REL TAB PO SCH (09:07)
[2017-05-09] MEDS: THIAMINE HCL 100 MG TAB PO SCH (09:07)
[2017-05-09] MEDS: ALLOPURINOL 300 MG TAB PO SCH (09:07)
[2017-05-09] MEDS: BOOST VANILLA PO SCH ×2 (09:08→18:00)
[2017-05-09] MEDS: DEXAMETH OP OPR SCH ×4 (09:08→21:07)
[2017-05-09] MEDS: NEOMYCIN OPR SCH ×4 (09:08→21:07)
[2017-05-09] MEDS: POLYMYX OPR SCH ×4 (09:08→21:07)
[2017-05-09] MEDS: GABAPENTIN 100 MG CAP PO SCH ×3 (09:08→21:07)
[2017-05-09 13:35] LABS: PTT PATIENT 61.8 SECONDS (21.0-31.0)
[2017-05-09 15:16] VITALS: BP 145/82; PULSE 84; TEMP 37.2; O2SAT 94
[2017-05-09] MEDS: WARFARIN SOD 5 MG TAB PO SCH (16:12)
--- NOTE | 2017-05-09 18:02 | Progress Note ---
Subjective Date of Service: May 09, 2017. Subjective Pt evaluation today including: conversation w/ patient, conversation w/ family , physical exam, lab review, review of studies, review of inpatient medication list Saw/examined the patient in room 453 He is slightly improving, mentally improving and speaking more c/o upper extremity joint pain Review of Systems Respiratory: No shortness of breath Cardiac: No chest pain Abdomen: No pain, No nausea, No vomiting, No diarrhea Musculoskeletal: + joint pain, + muscle pain Heme: No abnormal bleeding/bruising Medications Current Inpatient Medications Medications (Trade) Dose Ordered Sig/Jay Route Start Time Stop Time Status Last Admin Dose Admin Ondansetron HCl (Zofran Inj) 4 mg Q6H PRN IV 05/02/17 18:45 06/01/17 18:44 Heparin Sodium/ Dextrose 500 ml @ 23 mls/hr [id number] PRN IV 05/02/17 19:30 06/01/17 19:29 05/09/17 06:49 23 MLS/HR Allopurinol (Zyloprim Tab) 300 mg DAILY PO 05/03/17 09:00 06/02/17 08:59 05/09/17 09:07 300 MG Gabapentin (Neurontin Cap) 100 mg Q8 PO 05/02/17 22:00 06/01/17 21:59 05/09/17 14:10 100 MG Levothyroxine Sodium (Synthroid Tab) 25 mcg DAILYBB PO 05/03/17 06:00 06/02/17 06:59 05/09/17 09:07 25 MCG Metoprolol Succinate (Toprol Xl Tab) 50 mg DAILY PO 05/03/17 09:00 06/02/17 08:59 05/09/17 09:07 50 MG Neomycin/ Polymyxin/ Dexamethasone (Maxitrol Oph Oint) 1 appln QID OPR 05/02/17 21:00 06/01/17 20:59 05/09/17 16:13 1 APPLN Tamsulosin HCl (Flomax Cap) 0.4 mg HS PO 05/02/17 21:00 06/01/17 20:59 05/08/17 20:40 0.4 MG Thiamine HCl (Vitamin B-1 Tab) 50 mg QDB PO 05/03/17 07:30 06/02/17 07:59 05/09/17 09:07 50 MG Polyethylene (Miralax Powder Packet) 17 gm QDL PRN PO 05/02/17 19:30 06/01/17 19:29 Docusate Sodium (coLACE CAP) 100 mg BID PRN PO 05/03/17 21:00 06/01/17 20:59 Levetiracetam (Keppra Tab) 500 mg BID PO 05/03/17 13:45 06/02/17 20:59 05/09/17 09:07 500 MG Acetaminophen (Tylenol Tab) 650 mg Q8 PRN PO 05/03/17 17:45 06/01/17 18:44 Future Hold 05/07/17 16:05 650 MG Ketorolac Tromethamine (Toradol Tab) 10 mg TID PRN PO 05/07/17 21:30 05/12/17 21:29 05/09/17 09:07 10 MG Warfarin Sodium (Coumadin Tab) 5 mg DAILY@16 PO 05/08/17 16:00 06/07/17 15:59 05/09/17 16:12 5 MG Enteral Nutritional Formula (Boost) 1 can BID PO 05/08/17 20:00 06/07/17 19:59 05/09/17 09:08 1 CAN Objective Vital Signs Date Time Temp Pulse Resp B/P (MAP) Pulse Ox O2 Delivery O2 Flow Rate FiO2 05/09/17 16:30 Room Air 05/09/17 15:16 37.2 84 18 145/82 (103) 94 Room Air 05/09/17 08:45 Room Air 05/09/17 07:55 37.1 94 18 165/81 (109) 93 Room Air 05/09/17 00:45 37.1 93 18 153/77 (102) 94 Room Air 05/09/17 00:00 Room Air 05/08/17 21:12 36.5 98 153/80 (104) 93 Room Air Physical Exam General Appearance: no apparent distress Eyes: + pertinent finding (R eye, surgical changes) Respiratory/Chest: no respiratory distress, no accessory muscle use Cardiovascular: regular rate, rhythm, no edema Extremities: normal inspection, no pedal edema Neurologic/Psychiatric: + motor weakness (psychomotor slowing) Laboratory Results Last 24 Hours Test 05/08/17 20:29 05/09/17 05:57 05/09/17 07:47 05/09/17 11:44 Bedside Glucose 210 mg/dl 164 mg/dl 188 mg/dl Prothrombin Time 11.9 SECONDS Prothromb Time International Ratio 1.1 Activated Partial Thromboplast Time 39.1 SECONDS Partial Thromboplastin Ratio 1.5 Sodium Level 135 mmol/L Potassium Level 3.6 mmol/L Chloride Level 104 mmol/L Carbon Dioxide Level 24 mmol/L Anion Gap 7.0 mmol/L Blood Urea Nitrogen 14 mg/dl Creatinine 0.83 mg/dl Est Creatinine Clear Calc Drug Dose 76.9 ml/min Estimated GFR () 99.8 Estimated GFR (Non- 86.1 BUN/Creatinine Ratio 16.8 Random Glucose 166 mg/dl Calcium Level 9.0 mg/dl Total Bilirubin 0.6 mg/dl Direct Bilirubin 0.2 mg/dl Aspartate Amino Transf (AST/SGOT) 81 U/L Alanine Aminotransferase (ALT/SGPT) 112 U/L Alkaline Phosphatase 207 U/L Total Protein 6.5 gm/dl Albumin 2.1 gm/dl Test 05/09/17 12:49 05/09/17 16:36 Activated Partial Thromboplast Time 61.8 SECONDS Partial Thromboplastin Ratio 2.4 Bedside Glucose 131 mg/dl Assessment and Plan ACUTE RLE DVT HX TRAUMATIC INTRACRANIAL HEMORRHAGE, RIGHT ORBITAL COMPARTMENT SYNDROME S/P CANTHOTOMY 05/09 IV heparin will give another dose of Coumadin monitor LFTs recheck INR in AM 05/08 plan is for IV heparin to Coumadin bridge will give first dose of Coumadin today 05/07 - likely provoked DVT from recent prolonged hospital and rehab stays - patient sent from [facility] for concern of DVT, lower ext Doppler shows : Acute right lower extremity DVT with involvement of the popliteal vein, posterior tibial vein, and peroneal veins. - hx of recent traumatic head injury on 04/08/17 s/p fall leading to rt orbital fx , optic neuropathy, severe compartment syndrome leading to lateral canthotomy and craniotomy to reduce intra ocular pressure in [facility] in [place] pt had a prolong hospital stay from 04/08/17 to 04/19/17 -transferred to [facility] for rehab - head CT preformed in the ED negative for signs of bleeding -per Admitting team : - case was discussed with Dr. Tafoya (neurosurgery) at [facility] - given negative head CT, bleeding risks are considered low - case also discussed with Dr. Palm (ophthalmology) at [facility] - dc to anticoagulate with canthotomy history - - pt has been tolerating low dose IV heparin - no signs of bleeding so far Repeat CT head with out contrast 05/04/17 : no evidence of Hge or acute change pt will be continued to be monitored closely Ct head check with any evidence of headache or neurological change CT head in 7 days while on anticoagulation Risk and benefit for anticoagulation discussed in detail with Family _daughter and pt was unable to participate in discussion as could not comprehend the informations Given pt's risk for bleeding and fall risk ( had gait disturbance earlier due to Neuropathy worsened after intracranial trauma ) provoked DVt due to prolong immobilization /hospital admission , no pharmacological anticoagulation given due to intracranial hge tx for 3 months with anticoagulation will be safe given no bleeding episode happens during that period pt is on IV heparin , plan to start on PO Coumadin as liver function improves if any bleeding episode occurs -anticoagulation has to be reveres and will need vascular procedure -IVC filter placement ELEVATED LFTs due to Dilantin therapy was started on phenytoin 150 mg TID in [place] for seizure prophylaxis Dilantin has been D/erna , Dilantin level 14.6 on 05/03/2017 LFT minimally worsened today AST : 147-> 114-> 103-> 85-> 79-> 88 ALT :165-> 130-> 119-> 103-> 99-> 111 Coumadin not started today will order Gentle IVF repeat LFT 's in AM pt will be started on LOW DOSE COUMADIN 2 MG DAILY IF LIVER FUNCTION IMPROVES/ NORMALIZES - RUQ US negative for acute findings neurology consult requested appreciate input Dilantin D.erna started on Keppra 500 mg BID GI consulted -input appreciated LEFT SHOULDER PAIN : LEFT SHOULDER XRAY SHOWS : 1. Suspected old proximal humeral impaction fracture 2. Calcified loose bodies 3. Probable old fracture arising from the inferior scapular glenoid 4. Conventional radiographic evidence of chronic rotator cuff tear 5. No acute fractures or dislocations identified appreciate input form Orthopedics : chronic Fx with rupture tendon May benefit with subacromial steroid injection if develops intractable pain no further orthopedic intervention indicated pt was given Oxycodone earlier for shoulder pain appeared to more confused today hold Narcotics given recent traumatic brain injury /encephalopathy -all narcotics /sedatives should be avoided ordered for PRN Toradol and Tylenol ; can be used alternately CLAUDIA -resolved - likely prerenal; family reports appetite has been poor - creat 1.4 (baseline 1.0) improved to baseline 0.88 ; D/c IVF - Resumed lisinopril 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
[2017-05-09] MEDS ORDERED: GLUCOSE 40% GEL 15 GM TUBE PO PRN (21:00)
[2017-05-09] MEDS ORDERED: GLUCAGON FOR INJ 1 MG VIAL SQ PRN (21:00)
[2017-05-09] MEDS ORDERED: GLUCOSE 10 TABS/TUBE PO PRN (21:00)
[2017-05-09] MEDS ORDERED: DEXTROSE 50% 50 ML SYR IV PRN (21:00)
[2017-05-09] MEDS: TAMSULOSIN HCL 0.4 MG CAP PO SCH (21:07)
[2017-05-09] MEDS: INSULIN ASPART 100 UNITS/ML 3 ML PEN SC SCH (21:20)
[2017-05-09 22:35] VITALS: BP 155/78; PULSE 98; TEMP 37.4; O2SAT 94
[2017-05-10] MEDS: KETOROLAC TROMETHAMINE 10 MG TAB PO PRN (00:43)
[2017-05-10] MEDS: HEPARIN 25,000 UNIT/500ML D5W 500 ML IV PRN ×3 (00:47→21:23)
[2017-05-10] MEDS: LEVOTHYROXINE 25 MCG TAB PO SCH (05:58)
[2017-05-10] MEDS: GABAPENTIN 100 MG CAP PO SCH ×3 (05:58→21:30)
[2017-05-10 07:34] LABS: HEMATOCRIT 28.1 % (42-52); HEMOGLOBIN 9.7 g/dL (14.0-18.0); MEAN CELL VOLUME 93.7 fL (80-100); MEAN CORPUSCULAR HEMOGLOBIN 32.3 pg (25-34); MEAN CORPUSCULAR HGB CONC 34.5 g/dl (32-36); MEAN PLATELET VOLUME 8.8 fL (7.4-10.4); PLATELET COUNT 321 K/uL (130-400); RED CELL DISTRIBUTION WIDTH CV 12.6 % (11.5-14.5); RED CELL DISTRIBUTION WIDTH SD 42.8 fL (36.4-46.3); WHITE BLOOD COUNT 7.33 K/uL (4.8-10.8)
[2017-05-10 07:39] LABS: INR 1.1 (0.9-1.1)
[2017-05-10 07:46] LABS: CALCIUM 9.3 mg/dl (8.5-10.1); CREATININE 0.83 mg/dl (0.60-1.40)
[2017-05-10 07:49] LABS: TOTAL PROTEIN 6.5 gm/dl (6.4-8.2)
[2017-05-10 07:59] VITALS: BP 160/78; PULSE 102; TEMP 37.9; O2SAT 92
[2017-05-10] MEDS: METOPROLOL SUCC 50MG EXT REL TAB PO SCH (08:53)
[2017-05-10] MEDS: BOOST VANILLA PO SCH (08:53)
[2017-05-10] MEDS: LEVETIRACETAM 500 MG TAB PO SCH ×2 (08:53→21:30)
[2017-05-10] MEDS: NEOMYCIN OPR SCH ×4 (08:53→21:28)
[2017-05-10] MEDS: DEXAMETH OP OPR SCH ×4 (08:53→21:28)
[2017-05-10] MEDS: POLYMYX OPR SCH ×4 (08:53→21:28)
[2017-05-10] MEDS: INSULIN ASPART 100 UNITS/ML 3 ML PEN SC SCH ×4 (08:54→21:41)
[2017-05-10] MEDS: THIAMINE HCL 100 MG TAB PO SCH (08:54)
[2017-05-10] MEDS: ALLOPURINOL 300 MG TAB PO SCH (08:54)
[2017-05-10] MEDS ORDERED: HEPARIN IV BOLUS 3,000 UNIT in SYRINGE 0 ML IV ONE (09:15)
[2017-05-10] MEDS ORDERED: COLCHICINE 0.6 MG TAB PO ONE ×2 (12:30→16:45)
[2017-05-10 14:49] VITALS: BP 187/88; PULSE 100; TEMP 37.9; O2SAT 94
[2017-05-10] MEDS ORDERED: WARFARIN SOD 2 MG TAB PO SCH (16:00)
[2017-05-10 16:01] VITALS: BP 170/85; PULSE 98; TEMP 36.8; O2SAT 93
[2017-05-10] MEDS: BOOST GLUCOSE CONTROL PO SCH (16:21)
[2017-05-10] MEDS: WARFARIN SOD 5 MG TAB PO SCH (16:21)
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
[2017-05-10] MEDS: COLCHICINE 0.6 MG TAB PO SCH (21:29)
[2017-05-10] MEDS: TAMSULOSIN HCL 0.4 MG CAP PO SCH (21:29)
[2017-05-11 00:01] VITALS: BP 144/81; PULSE 93; TEMP 37.4; O2SAT 92
[2017-05-11] MEDS: LEVOTHYROXINE 25 MCG TAB PO SCH (06:19)
[2017-05-11] MEDS: GABAPENTIN 100 MG CAP PO SCH ×3 (06:19→20:50)
[2017-05-11] MEDS: KETOROLAC TROMETHAMINE 10 MG TAB PO PRN ×3 (06:20→22:45)
[2017-05-11 07:58] VITALS: BP 132/78; PULSE 86; TEMP 36.3; O2SAT 92
[2017-05-11 08:02] LABS: INR 1.2 (0.9-1.1)
[2017-05-11 08:04] LABS: PTT PATIENT 55.7 SECONDS (21.0-31.0)
[2017-05-11 08:20] LABS: ALBUMIN 1.9 gm/dl (3.4-5.0); CALCIUM 9.3 mg/dl (8.5-10.1); CREATININE 0.82 mg/dl (0.60-1.40); POTASSIUM 3.5 mmol/L (3.5-5.1)
[2017-05-11 08:22] LABS: TOTAL PROTEIN 6.5 gm/dl (6.4-8.2)
[2017-05-11] MEDS: POLYMYX OPR SCH ×4 (10:01→20:49)
[2017-05-11] MEDS: NEOMYCIN OPR SCH ×4 (10:01→20:49)
[2017-05-11] MEDS: DEXAMETH OP OPR SCH ×4 (10:01→20:49)
[2017-05-11] MEDS: BOOST GLUCOSE CONTROL PO SCH ×3 (10:01→22:43)
[2017-05-11] MEDS: INSULIN ASPART 100 UNITS/ML 3 ML PEN SC SCH ×4 (10:01→20:46)
[2017-05-11] MEDS: COLCHICINE 0.6 MG TAB PO SCH ×2 (10:02→20:49)
[2017-05-11] MEDS: THIAMINE HCL 100 MG TAB PO SCH (10:03)
[2017-05-11] MEDS: METOPROLOL SUCC 50MG EXT REL TAB PO SCH (10:03)
[2017-05-11] MEDS: LEVETIRACETAM 500 MG TAB PO SCH ×2 (10:03→20:50)
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
--- NOTE | 2017-05-11 11:23 | DIAGNOSTIC IMAGING REPORT ---
CT HEAD WITHOUT CONTRAST (CT) CLINICAL HISTORY: lethargy COMPARISON STUDY: 05/08/2017 TECHNIQUE: Axial CT of the brain is performed from the vertex to the skull base. IV contrast was not administered for this examination. A dose lowering technique was utilized adhering to the principles of ALARA. CT DOSE: 638.56 mGycm FINDINGS: No intra or extra-axial mass lesions are visualized. There is no CT evidence of acute cortical infarction. There is no evidence of midline shift. There is no acute hemorrhage. No calvarial fractures are visualized. There is stable encephalomalacia the base the right frontal lobe There is mild ventricular dilatation, unchanged from the prior study. One could argue that this is slightly out of proportion to the degree of volume loss. There is no evidence of acute sinusitis. Again visualized is a fracture of the right posterior orbit. IMPRESSION: 1. No acute intracranial findings 2. No significant change in the comminuted fracture involving the right posterior orbit 3. Stable mild ventriculomegaly 4. Stable encephalomalacia involving the base of the right frontal lobe Electronically signed by: Lion Britt M.D. 05/11/2017 11:22 AM Dictated Date/Time: 05/11/2017 11:18 AM
--- NOTE | 2017-05-11 13:13 | DIAGNOSTIC IMAGING REPORT ---
CHEST ONE VIEW PORTABLE HISTORY: 77 years-old Male r/o infectious process acute cough. COMPARISON: Chest radiograph 05/08/2017 TECHNIQUE: Portable AP view of the chest FINDINGS: Cardiomediastinal and hilar silhouettes are within normal limits. Atherosclerosis of the aorta. There is no pneumothorax, pleural effusion, focal airspace consolidation or overt pulmonary edema. The bones of the chest appear grossly intact. Degenerative changes are seen within the spine with advanced degenerative changes about the left shoulder with probable joint space loose bodies. IMPRESSION: No acute process. The above report was generated using voice recognition software. It may contain grammatical, syntax or spelling errors. Electronically signed by: Herbie Davison M.D. 05/11/2017 1:11 PM Dictated Date/Time: 05/11/2017 1:06 PM
[2017-05-11] MEDS ORDERED: LORAZEPAM 0.5 MG TAB PO PRN (13:30)
[2017-05-11 15:22] VITALS: BP 125/79; PULSE 85; TEMP 37.1; O2SAT 95
[2017-05-11 16:00] VITALS: O2SAT 95
--- NOTE | 2017-05-11 16:17 | Progress Note ---
Subjective Date of Service: May 11, 2017. Subjective Pt evaluation today including: conversation w/ patient, conversation w/ family , physical exam, lab review, review of studies, review of inpatient medication list Saw/examined the patient in room 453 Earlier today, he was very lethargic, weakness and difficulty to open his eyes Later in the afternoon, he is improving; talking more tells me he feels +depressed; feels very fatigued and weak and has a hard time working with PT/OT swelling in the hands, joints improving, though still painful, less warm to touch Review of Systems Constitutional: + weakness, + fatigue Respiratory: No shortness of breath Cardiac: No chest pain Abdomen: No pain, No nausea, No vomiting, No diarrhea Musculoskeletal: + joint pain Heme: No abnormal bleeding/bruising Medications Current Inpatient Medications Medications (Trade) Dose Ordered Sig/Jay Route Start Time Stop Time Status Last Admin Dose Admin Ondansetron HCl (Zofran Inj) 4 mg Q6H PRN IV 05/02/17 18:45 06/01/17 18:44 Heparin Sodium/ Dextrose 500 ml @ 24 mls/hr [id number] PRN IV 05/02/17 19:30 06/01/17 19:29 05/10/17 21:23 24 MLS/HR Gabapentin (Neurontin Cap) 100 mg Q8 PO 05/02/17 22:00 06/01/17 21:59 05/11/17 13:34 100 MG Levothyroxine Sodium (Synthroid Tab) 25 mcg DAILYBB PO 05/03/17 06:00 06/02/17 06:59 05/11/17 06:19 25 MCG Metoprolol Succinate (Toprol Xl Tab) 50 mg DAILY PO 05/03/17 09:00 06/02/17 08:59 05/11/17 10:03 50 MG Neomycin/ Polymyxin/ Dexamethasone (Maxitrol Oph Oint) 1 appln QID OPR 05/02/17 21:00 06/01/17 20:59 05/11/17 13:34 1 APPLN Tamsulosin HCl (Flomax Cap) 0.4 mg HS PO 05/02/17 21:00 06/01/17 20:59 05/10/17 21:29 0.4 MG Thiamine HCl (Vitamin B-1 Tab) 50 mg QDB PO 05/03/17 07:30 06/02/17 07:59 05/11/17 10:03 50 MG Polyethylene (Miralax Powder Packet) 17 gm QDL PRN PO 05/02/17 19:30 06/01/17 19:29 Docusate Sodium (coLACE CAP) 100 mg BID PRN PO 05/03/17 21:00 06/01/17 20:59 Levetiracetam (Keppra Tab) 500 mg BID PO 05/03/17 13:45 06/02/17 20:59 05/11/17 10:03 500 MG Acetaminophen (Tylenol Tab) 650 mg Q8 PRN PO 05/03/17 17:45 06/01/17 18:44 Future Hold 05/07/17 16:05 650 MG Ketorolac Tromethamine (Toradol Tab) 10 mg TID PRN PO 05/07/17 21:30 05/12/17 21:29 05/11/17 06:20 10 MG Insulin Aspart (novoLOG ASPART) SLIDING SCALE If C... ACHS SC 05/09/17 22:00 06/08/17 21:59 05/10/17 21:41 1 UNITS Glucose (Glucose 40% Gel) 15-30 GRAMS 15 GRAMS... UD PRN PO 05/09/17 21:00 06/08/17 20:59 Glucose (Glucose Chew Tab) 4-8 Tablets 4 Tabl... UD PRN PO 05/09/17 21:00 06/08/17 20:59 Dextrose (Dextrose 50% 50ML Syringe) 25-50ML OF 50% DW IV FOR... UD PRN IV 05/09/17 21:00 06/08/17 20:59 Glucagon (Glucagon Inj) 1 mg UD PRN SQ 05/09/17 21:00 06/08/17 20:59 Warfarin Sodium (Coumadin Tab) 5 mg DAILY@16 PO 05/10/17 16:00 06/07/17 15:59 05/10/17 16:21 5 MG Colchicine (Colchicine Tab) 0.6 mg BID PO 05/10/17 20:00 06/09/17 19:59 05/11/17 10:02 0.6 MG Enteral Nutritional Formula (Boost Glucose Control) 1 can BIDM PO 05/10/17 17:00 06/09/17 16:59 1/17/18 16:21 1 CAN Lorazepam (Ativan Tab) 0.5 mg BID PRN PO 05/11/17 13:30 06/10/17 13:29 Escitalopram Oxalate (Lexapro Tab) 10 mg QAM PO 05/12/17 08:00 06/11/17 07:59 Objective Vital Signs Date Time Temp Pulse Resp B/P (MAP) Pulse Ox O2 Delivery O2 Flow Rate FiO2 05/11/17 08:00 Room Air 05/11/17 07:58 36.3 86 20 132/78 (96) 92 Room Air 05/11/17 00:30 Room Air 05/11/17 00:01 37.4 93 18 144/81 (102) 92 Room Air 05/10/17 16:01 36.8 98 18 170/85 (113) 93 Room Air 05/10/17 16:00 Room Air Physical Exam General Appearance: no apparent distress, + pertinent finding (+lethargy, + weakness) Eyes: + pertinent finding (R eye surgery) Respiratory/Chest: no respiratory distress, no accessory muscle use Cardiovascular: regular rate, rhythm Extremities: + pertinent finding (R hand swelling, bilateral joint swelling) Laboratory Results Last 24 Hours Test 05/10/17 15:49 05/10/17 16:34 05/10/17 20:23 05/11/17 07:12 Activated Partial Thromboplast Time 47.0 SECONDS 55.7 SECONDS Partial Thromboplastin Ratio 1.8 2.1 Bedside Glucose 172 mg/dl 185 mg/dl Prothrombin Time 12.6 SECONDS Prothromb Time International Ratio 1.2 Sodium Level 135 mmol/L Potassium Level 3.5 mmol/L Chloride Level 102 mmol/L Carbon Dioxide Level 24 mmol/L Anion Gap 9.0 mmol/L Blood Urea Nitrogen 22 mg/dl Creatinine 0.82 mg/dl Est Creatinine Clear Calc Drug Dose 77.8 ml/min Estimated GFR () 100.3 Estimated GFR (Non- 86.5 BUN/Creatinine Ratio 27.4 Random Glucose 151 mg/dl Calcium Level 9.3 mg/dl Total Bilirubin 0.7 mg/dl Direct Bilirubin 0.4 mg/dl Aspartate Amino Transf (AST/SGOT) 182 U/L Alanine Aminotransferase (ALT/SGPT) 184 U/L Alkaline Phosphatase 263 U/L Total Protein 6.5 gm/dl Albumin 1.9 gm/dl Lipase 514 U/L Test 05/11/17 07:42 05/11/17 11:47 05/11/17 13:30 Bedside Glucose 160 mg/dl 170 mg/dl Urine Color DK YELLOW Urine Appearance CLEAR Urine pH 5.0 Urine Specific [place] 1.019 Urine Protein 2+ Urine Glucose (UA) NEG Urine Ketones NEG Urine Occult Blood 2+ Urine Nitrite NEG Urine Bilirubin NEG Urine Urobilinogen NEG Urine Leukocyte Esterase NEG Urine WBC (Auto) 1-5 /hpf Urine RBC (Auto) 5-10 /hpf Urine Hyaline Casts (Auto) 1-5 /lpf Urine Epithelial Cells (Auto) 5-10 /lpf Urine Bacteria (Auto) NEG Assessment and Plan This is a 77 year old male with a PMH of traumatic intracranial hemorrhage, R orbital compartment syndrome s/p canthotomy, hx. of chronic alcoholism, DM2 and diabetic polyneuropathy, depression, HTN, HLD, seizure disorder, gout, BPH - presents with acute R LE DVT Acute Right LE DVT Hx. of Traumatic Intracranial Hemorrhage R Orbital Compartment Syndrome s/p Canthotomy patient was sent from [facility] where he was getting rehab due to concern for acute DVT Dopplers on admission confirmed and acute R LE DVT he had a recent traumatic brain injury and intracranial hemorrhage; was seen by neurosurgery in [place] Head CT on admission showed no intracranial bleeding after speaking with neurosurgery in [place] and ophthalmology - it was deemed safe to begin anticoagulation will need three months of anticoagulation currently on an IV heparin drip -- bridging to Coumadin INR on 05/11 is 1.2, will give another 5mg of Coumadin and recheck INR in AM case was discussed with Dr. Tafoya (neurosurgery) at [facility] - given negative head CT, bleeding risks are considered low case also discussed with Dr. Palm (ophthalmology) at [facility] - ok to anticoagulate with canthotomy history Lethargy/Weakness Underlying Depression? intermittent lethargy is still concerning, though repeated head CT's confirm no new intracranial bleed as per records, patient was on amitriptyline, possibly for depression currently not on amitriptyline - lethargy is possible a withdrawal symptom? patient states he feels depressed - started on Lexapro and Ativan BID dosing will continue PT/OT - plan to d/c back to [facility] after IV heparin to Coumadin transition Gout Flare possible flare up of gout will stop allopurinol start colchicine 0.6mg BID Elevated LFTs possibly due to Dilantin? initially neurology was consulted due to transitioning from Dilantin to Keppra this transition has been made, but his LFTs continue to trend upwards GI re-consulted for further input Seizure Disorder changed from Dilantin to Keppra Acute Kidney Injury - resolved creatinine on admission at 1.4 now back down to less than one encouraged PO intake Hyponatremia - improved likely secondary to dehydration will monitor DM2 currently on an insulin sliding scale will check an Ha1c in the AM HTN BP controlled continue current medications L Shoulder Pain L shoulder radiograph - no acute fractures, likely chronically rotator cuff tear orthopedic input - possible steroid injection, no surgical intervention holding narcotics, Toradol, colchicine, tylenol for now PT/OT - plan to d/c to rehab DVT ppx IV heparin FULL CODE
[2017-05-11] MEDS: WARFARIN SOD 5 MG TAB PO SCH (16:28)
[2017-05-11] MEDS: HEPARIN 25,000 UNIT/500ML D5W 500 ML IV PRN (17:47)
[2017-05-11] MEDS: TAMSULOSIN HCL 0.4 MG CAP PO SCH (20:50)
--- NOTE | 2017-05-11 21:55 | DIAGNOSTIC IMAGING REPORT ---
ULTRASOUND RIGHT UPPER QUADRANT ABDOMEN CLINICAL HISTORY: Transaminitis. COMPARISON STUDY: Abdominal ultrasound dated 05/02/2017. TECHNIQUE: Real-time, grayscale, and color flow sonography of the right upper quadrant of the abdomen was performed. Images are reviewed in the transverse and longitudinal planes. FINDINGS: Liver: The liver is normal in size and echotexture. There is no intrahepatic biliary ductal dilatation. The main portal vein is patent. Gallbladder: The gallbladder is contracted and grossly unremarkable. No gallstones are identified. There is no gallbladder wall thickening or pericholecystic fluid. A sonographic Pastor's sign is reportedly absent. The common bile duct measures up to 0.4 cm in diameter. Pancreas: Not visualized due to overlying bowel gas. Right kidney: Survey images of the right kidney demonstrate cortical atrophy. There is no hydronephrosis. A 3.9 cm cyst is noted. Ascites: None. IMPRESSION: 1. Unremarkable sonographic assessment of the liver. 2. The gallbladder is contracted. No gallstones are identified. Electronically signed by: Jeff Chamberlain M.D. 05/11/2017 9:53 PM Dictated Date/Time: 05/11/2017 9:52 PM
[2017-05-11 23:22] VITALS: BP 115/70; PULSE 77; TEMP 36.6; O2SAT 95
[2017-05-12] VITALS: O2SAT 95
[2017-05-12] MEDS: LEVOTHYROXINE 25 MCG TAB PO SCH (05:12)
[2017-05-12] MEDS: GABAPENTIN 100 MG CAP PO SCH ×3 (05:12→20:39)
[2017-05-12 06:46] LABS: HEMATOCRIT 25.1 % (42-52); HEMOGLOBIN 8.6 g/dL (14.0-18.0); MEAN CELL VOLUME 93.7 fL (80-100); MEAN CORPUSCULAR HEMOGLOBIN 32.1 pg (25-34); MEAN CORPUSCULAR HGB CONC 34.3 g/dl (32-36); MEAN PLATELET VOLUME 8.6 fL (7.4-10.4); PLATELET COUNT 381 K/uL (130-400); RED CELL DISTRIBUTION WIDTH CV 12.7 % (11.5-14.5); RED CELL DISTRIBUTION WIDTH SD 43.2 fL (36.4-46.3); WHITE BLOOD COUNT 4.64 K/uL (4.8-10.8)
[2017-05-12 07:04] LABS: INR 1.2 (0.9-1.1)
[2017-05-12 07:09] LABS: PTT PATIENT 55.8 SECONDS (21.0-31.0)
[2017-05-12 08:01] VITALS: BP 101/64; PULSE 68; TEMP 36.6; O2SAT 96
[2017-05-12 08:37] LABS: HEMOGLOBIN A1C 7.2 % (4.5-5.6)
--- NOTE | 2017-05-12 08:45 | Gastroenterology Progress Note ---
Progress Note Date of Service: May 12, 2017 Subjective Pt evaluation today including: conversation w/ patient, physical exam, lab review Pt was seen and evaluated. He is alert, oriented today. Offers no complaints. Tells me he is feeling well. No abd pain, nausea, vomiting. Tells me he has a long history of ETOH abuse, 4-5 drinks daily for years. Stopped ETOH intake in March. No fever, chills, CP, SOB. He is hungry this AM. Ferritin 1605 FE 70 TIBC 151 H&H 9.7/28 DNA HFE: heterozygous H63D mutation, negative for the C282Y mutation. TB 0.7 DB 0.4 AST 182 ALT 184 ALKP 263 Hepatic Duplex 05/04/17: No evidence for portal vein thrombosis. RUQ US 05/02/17: Significantly limited study from a technical standpoint. Nonvisualization of the pancreas Poorly visualized gallbladder but no calculi identified No ductal dilatation RUQ US 05/12/17: The liver is normal in size and echotexture. There is no intrahepaticbiliary ductal dilatation. The main portal vein is patent.Gallbladder: The gallbladder is contracted and grossly unremarkable. No gallstones are identified. There is no gallbladder wall thickening or pericholecystic fluid. A sonographic Pastor's sign is reportedly absent. The common bile duct measures up to 0.4 cm in diameter Review of Systems Constitutional: No fever, No chills Respiratory: No cough Cardiac: No chest pain Abdomen: No pain, No nausea Medications Current Inpatient Medications Medications (Trade) Dose Ordered Sig/Jay Route Start Time Stop Time Status Last Admin Dose Admin Ondansetron HCl (Zofran Inj) 4 mg Q6H PRN IV 05/02/17 18:45 06/01/17 18:44 Heparin Sodium/ Dextrose 500 ml @ 24 mls/hr [id number] PRN IV 05/02/17 19:30 06/01/17 19:29 05/11/17 17:47 24 MLS/HR Gabapentin (Neurontin Cap) 100 mg Q8 PO 05/02/17 22:00 06/01/17 21:59 05/12/17 05:12 100 MG Levothyroxine Sodium (Synthroid Tab) 25 mcg DAILYBB PO 05/03/17 06:00 06/02/17 06:59 05/12/17 05:12 25 MCG Metoprolol Succinate (Toprol Xl Tab) 50 mg DAILY PO 05/03/17 09:00 06/02/17 08:59 05/11/17 10:03 50 MG Neomycin/ Polymyxin/ Dexamethasone (Maxitrol Oph Oint) 1 appln QID OPR 05/02/17 21:00 06/01/17 20:59 05/11/17 20:49 1 APPLN Tamsulosin HCl (Flomax Cap) 0.4 mg HS PO 05/02/17 21:00 06/01/17 20:59 05/11/17 20:50 0.4 MG Thiamine HCl (Vitamin B-1 Tab) 50 mg QDB PO 05/03/17 07:30 06/02/17 07:59 05/11/17 10:03 50 MG Polyethylene (Miralax Powder Packet) 17 gm QDL PRN PO 05/02/17 19:30 06/01/17 19:29 Docusate Sodium (coLACE CAP) 100 mg BID PRN PO 05/03/17 21:00 06/01/17 20:59 Levetiracetam (Keppra Tab) 500 mg BID PO 05/03/17 13:45 06/02/17 20:59 05/11/17 20:50 500 MG Acetaminophen (Tylenol Tab) 650 mg Q8 PRN PO 05/03/17 17:45 06/01/17 18:44 Future Hold 05/07/17 16:05 650 MG Ketorolac Tromethamine (Toradol Tab) 10 mg TID PRN PO 05/07/17 21:30 05/12/17 21:29 05/11/17 22:45 10 MG Insulin Aspart (novoLOG ASPART) SLIDING SCALE If C... ACHS SC 05/09/17 22:00 06/08/17 21:59 05/10/17 21:41 1 UNITS Glucose (Glucose 40% Gel) 15-30 GRAMS 15 GRAMS... UD PRN PO 05/09/17 21:00 06/08/17 20:59 Glucose (Glucose Chew Tab) 4-8 Tablets 4 Tabl... UD PRN PO 05/09/17 21:00 06/08/17 20:59 Dextrose (Dextrose 50% 50ML Syringe) 25-50ML OF 50% DW IV FOR... UD PRN IV 05/09/17 21:00 06/08/17 20:59 Glucagon (Glucagon Inj) 1 mg UD PRN SQ 05/09/17 21:00 06/08/17 20:59 Warfarin Sodium (Coumadin Tab) 5 mg DAILY@16 PO 05/10/17 16:00 06/07/17 15:59 05/11/17 16:28 5 MG Colchicine (Colchicine Tab) 0.6 mg BID PO 05/10/17 20:00 06/09/17 19:59 05/11/17 20:49 0.6 MG Enteral Nutritional Formula (Boost Glucose Control) 1 can BIDM PO 05/10/17 17:00 06/09/17 16:59 05/11/17 22:43 1 CAN Lorazepam (Ativan Tab) 0.5 mg BID PRN PO 05/11/17 13:30 06/10/17 13:29 Escitalopram Oxalate (Lexapro Tab) 10 mg QAM PO 05/12/17 08:00 06/11/17 07:59 Lisinopril (Zestril Tab) 10 mg QAM PO 05/12/17 08:00 06/11/17 07:59 Folic Acid (Folvite Tab) 1 mg QAM PO 05/12/17 08:00 06/11/17 07:59 Multivitamins/ Minerals (Multivitamin W/ Minerals Tab) 1 tab QAM PO 05/12/17 08:00 06/11/17 07:59 Objective Vital Signs Date Time Temp Pulse Resp B/P (MAP) Pulse Ox O2 Delivery O2 Flow Rate FiO2 05/12/17 08:01 36.6 68 20 101/64 (76) 96 05/12/17 00:00 95 Room Air 05/11/17 23:22 36.6 77 20 115/70 (85) 95 Room Air 05/11/17 16:00 95 Room Air 05/11/17 15:22 37.1 85 18 125/79 (94) 95 Room Air Physical Exam General Appearance: no apparent distress, + pertinent finding (out of bed in chair) Eyes: + pertinent finding (right eye w/ celluitis and eye injury) Neck: supple, trachea midline Respiratory/Chest: lungs clear, normal breath sounds Cardiovascular: regular rate, rhythm, no JVD Abdomen: normal bowel sounds, non tender, soft, no organomegaly Neurologic/Psych: alert, normal mood/affect, oriented x 3 Skin: normal color Laboratory Results Last 24 Hours Test 05/11/17 11:47 05/11/17 13:30 05/11/17 16:38 05/11/17 20:18 Bedside Glucose 170 mg/dl 142 mg/dl 125 mg/dl Urine Color DK YELLOW Urine Appearance CLEAR Urine pH 5.0 Urine Specific [place] 1.019 Urine Protein 2+ Urine Glucose (UA) NEG Urine Ketones NEG Urine Occult Blood 2+ Urine Nitrite NEG Urine Bilirubin NEG Urine Urobilinogen NEG Urine Leukocyte Esterase NEG Urine WBC (Auto) 1-5 /hpf Urine RBC (Auto) 5-10 /hpf Urine Hyaline Casts (Auto) 1-5 /lpf Urine Epithelial Cells (Auto) 5-10 /lpf Urine Bacteria (Auto) NEG Test 05/12/17 06:30 White Blood Count 4.64 K/uL Red Blood Count 2.68 M/uL Hemoglobin 8.6 g/dL Hematocrit 25.1 % Mean Corpuscular Volume 93.7 fL Mean Corpuscular Hemoglobin 32.1 pg Mean Corpuscular Hemoglobin Concent 34.3 g/dl RDW Standard Deviation 43.2 fL RDW Coefficient of Variation 12.7 % Platelet Count 381 K/uL Mean Platelet Volume 8.6 fL Prothrombin Time 13.0 SECONDS Prothromb Time International Ratio 1.2 Activated Partial Thromboplast Time 55.8 SECONDS Partial Thromboplastin Ratio 2.1 Estimated Average Glucose 160 mg/dl Hemoglobin A1c 7.2 % Assessment and Plan 77 year old male seen for new LFT elevation. Was started on Dilantin for suspected seizure activity, this was held x 1 week without improvement of LFTs. Per chart review has a history of heavy ETOH use. ETOH hepatitis unlikely as Tbili not elevated and last ETOH intake was almost 1 month ago. Serology largely negative besides elevated Ferritin at 1602, FE 70, TIBC 151, HFE w/ heterozygous H63D mutation, negative for the C282Y mutation. There is no documentation of a BM since 05/06/17. Pt abdomen was soft, non-distended and appeared to non-tender as there was no involuntary guarding. PLT 321, PT/INR 12.6/1.2, TB 0.7, DB 0.4, AST 182, ALT 184, ALKP 263 - Monitor LFTs - Hold Dilantin - ETOH cessation. - Limit APAP <2g daily if needed - Hold on MRCP given mental status changes - GI will sign off. No sign of choledocholithiasis or biliary obstruction. Please call with any questions or concerns. Attg add: I interviewed and examined pt, reviewed chart and labs. Pt without complaints. Recent worsening of LFT's and lipase increase suggests that he has sludge. Would follow periodically as pt resumes PO intake. No other tests needed at this point - would defer teresita as I expect this to be a transient issue that resolves once he starts eating normally. Will sign off, but please reconsult if needed.
[2017-05-12] MEDS: INSULIN ASPART 100 UNITS/ML 3 ML PEN SC SCH ×4 (08:56→20:39)
[2017-05-12] MEDS: POLYMYX OPR SCH ×4 (08:57→20:40)
[2017-05-12] MEDS: NEOMYCIN OPR SCH ×4 (08:57→20:40)
[2017-05-12] MEDS: DEXAMETH OP OPR SCH ×4 (08:57→20:40)
[2017-05-12] MEDS: COLCHICINE 0.6 MG TAB PO SCH ×2 (08:59→20:39)
[2017-05-12] MEDS: BOOST GLUCOSE CONTROL PO SCH ×2 (09:00→17:39)
[2017-05-12] MEDS: LEVETIRACETAM 500 MG TAB PO SCH ×2 (09:00→20:38)
[2017-05-12] MEDS: LISINOPRIL 10 MG TAB PO SCH (09:01)
[2017-05-12] MEDS: METOPROLOL SUCC 50MG EXT REL TAB PO SCH (09:02)
[2017-05-12] MEDS: CEROVITE ADV FORMULA TAB PO SCH (09:02)
[2017-05-12] MEDS: ESCITALOPRAM OXALATE 10 MG TAB PO SCH (09:04)
[2017-05-12] MEDS: THIAMINE HCL 100 MG TAB PO SCH (09:19)
[2017-05-12] MEDS ORDERED: VANCOMYCIN CONSULT ACTIVE PRN ×2 (10:45)
--- NOTE | 2017-05-12 10:48 | Pharmacy Progress Note ---
Pharmacy Abx Dose Short Note Date of Service May 12, 2017. Assessment & Plan Assessment 77 year old male receiving vancomycin for treatment of 1 of 2 blood cultures are positive for GPC Day # 1/2 ordered of antimicrobial therapy. Plan Vancomycin * loading dose: vancomycin 2000 mg IV x 1 (25 mg/kg/dose) * maintenance dose: vancomycin 1250 mg q12 hours for 48 hours per empiric stop date (16.4 mg/kg/dose; population kinetics suggest a half-life of 10 hours... will use slightly higher mg/kg/dose with longer half-life) * no trough ordered as only ordered for 48 hours currently, order level if prolonged use expected Pharmacy will continue to follow and will adjust dose/frequency as necessary. Thank you.
[2017-05-12] MEDS ORDERED: VANCOMYCIN INJ 2,000 MG in SODIUM CHLORIDE 0.9% 500ML 500 ML IV ONE (11:00)
[2017-05-12 13:28] LABS: ALBUMIN 1.8 gm/dl (3.4-5.0); TOTAL PROTEIN 6.3 gm/dl (6.4-8.2)
[2017-05-12] MEDS: HEPARIN 25,000 UNIT/500ML D5W 500 ML IV PRN (14:05)
[2017-05-12 14:34] VITALS: BP 109/68; PULSE 71; TEMP 36.5; O2SAT 94
[2017-05-12] MEDS ORDERED: WARFARIN SOD 10 MG TAB PO SCH (16:00)
[2017-05-12] MEDS ORDERED: WARFARIN SOD 5 MG TAB PO SCH (16:00)
--- NOTE | 2017-05-12 18:58 | Progress Note ---
Subjective Date of Service: May 12, 2017. Subjective Pt evaluation today including: conversation w/ patient, physical exam, lab review, review of studies, review of inpatient medication list Saw/examined the patient in room 453 He's doing much better today; clinically improved less lethargic, seated in a chair states he does not feel depressed/anxious Review of Systems Constitutional: + weakness Respiratory: No shortness of breath Cardiac: No chest pain Abdomen: No pain, No nausea, No vomiting, No diarrhea Heme: No abnormal bleeding/bruising Medications Current Inpatient Medications Medications (Trade) Dose Ordered Sig/Jay Route Start Time Stop Time Status Last Admin Dose Admin Ondansetron HCl (Zofran Inj) 4 mg Q6H PRN IV 05/02/17 18:45 06/01/17 18:44 Heparin Sodium/ Dextrose 500 ml @ 24 mls/hr [id number] PRN IV 05/02/17 19:30 06/01/17 19:29 05/12/17 14:05 24 MLS/HR Gabapentin (Neurontin Cap) 100 mg Q8 PO 05/02/17 22:00 06/01/17 21:59 05/12/17 14:03 100 MG Levothyroxine Sodium (Synthroid Tab) 25 mcg DAILYBB PO 05/03/17 06:00 06/02/17 06:59 05/12/17 05:12 25 MCG Metoprolol Succinate (Toprol Xl Tab) 50 mg DAILY PO 05/03/17 09:00 06/02/17 08:59 05/12/17 09:02 50 MG Neomycin/ Polymyxin/ Dexamethasone (Maxitrol Oph Oint) 1 appln QID OPR 05/02/17 21:00 06/01/17 20:59 05/12/17 17:40 1 APPLN Tamsulosin HCl (Flomax Cap) 0.4 mg HS PO 05/02/17 21:00 06/01/17 20:59 05/11/17 20:50 0.4 MG Thiamine HCl (Vitamin B-1 Tab) 50 mg QDB PO 05/03/17 07:30 06/02/17 07:59 05/12/17 09:19 50 MG Polyethylene (Miralax Powder Packet) 17 gm QDL PRN PO 05/02/17 19:30 06/01/17 19:29 Docusate Sodium (coLACE CAP) 100 mg BID PRN PO 05/03/17 21:00 06/01/17 20:59 Levetiracetam (Keppra Tab) 500 mg BID PO 05/03/17 13:45 06/02/17 20:59 05/12/17 09:00 500 MG Acetaminophen (Tylenol Tab) 650 mg Q8 PRN PO 05/03/17 17:45 06/01/17 18:44 Future Hold 05/07/17 16:05 650 MG Ketorolac Tromethamine (Toradol Tab) 10 mg TID PRN PO 05/07/17 21:30 05/12/17 21:29 05/11/17 22:45 10 MG Insulin Aspart (novoLOG ASPART) SLIDING SCALE If C... ACHS SC 05/09/17 22:00 06/08/17 21:59 05/10/17 21:41 1 UNITS Glucose (Glucose 40% Gel) 15-30 GRAMS 15 GRAMS... UD PRN PO 05/09/17 21:00 06/08/17 20:59 Glucose (Glucose Chew Tab) 4-8 Tablets 4 Tabl... UD PRN PO 05/09/17 21:00 06/08/17 20:59 Dextrose (Dextrose 50% 50ML Syringe) 25-50ML OF 50% DW IV FOR... UD PRN IV 05/09/17 21:00 06/08/17 20:59 Glucagon (Glucagon Inj) 1 mg UD PRN SQ 05/09/17 21:00 06/08/17 20:59 Colchicine (Colchicine Tab) 0.6 mg BID PO 05/10/17 20:00 06/09/17 19:59 05/12/17 08:59 0.6 MG Enteral Nutritional Formula (Boost Glucose Control) 1 can BIDM PO 05/10/17 17:00 06/09/17 16:59 05/12/17 17:39 1 CAN Lorazepam (Ativan Tab) 0.5 mg BID PRN PO 05/11/17 13:30 06/10/17 13:29 Escitalopram Oxalate (Lexapro Tab) 10 mg QAM PO 05/12/17 08:00 06/11/17 07:59 05/12/17 09:04 10 MG Lisinopril (Zestril Tab) 10 mg QAM PO 05/12/17 08:00 06/11/17 07:59 05/12/17 09:01 10 MG Folic Acid (Folvite Tab) 1 mg QAM PO 05/12/17 08:00 06/11/17 07:59 05/12/17 09:01 1 MG Multivitamins/ Minerals (Multivitamin W/ Minerals Tab) 1 tab QAM PO 05/12/17 08:00 06/11/17 07:59 05/12/17 09:02 1 TAB Vancomycin HCl 1250 mg/Sodium Chloride 275 ml @ 125 mls/hr Q12H IV 05/12/17 23:00 05/14/17 22:59 Miscellaneous Information (Consult) 1 ea UD PRN N/A 05/12/17 10:45 06/11/17 10:44 Warfarin Sodium (Coumadin Tab) 10 mg DAILY@16 PO 05/12/17 16:00 06/11/17 15:59 05/12/17 17:39 10 MG Objective Vital Signs Date Time Temp Pulse Resp B/P (MAP) Pulse Ox O2 Delivery O2 Flow Rate FiO2 05/12/17 16:00 Room Air 05/12/17 14:34 36.5 71 16 109/68 (82) 94 05/12/17 08:01 36.6 68 20 101/64 (76) 96 05/12/17 08:00 Room Air 05/12/17 00:00 95 Room Air 05/11/17 23:22 36.6 77 20 115/70 (85) 95 Room Air Physical Exam General Appearance: no apparent distress Respiratory/Chest: no respiratory distress, no accessory muscle use Extremities: + pertinent finding (swelling subsided) Neurologic/Psychiatric: no motor/sensory deficits, alert, normal mood/affect Laboratory Results Last 24 Hours Test 05/11/17 20:18 05/12/17 06:30 05/12/17 06:37 05/12/17 07:48 Bedside Glucose 125 mg/dl 113 mg/dl White Blood Count 4.64 K/uL Red Blood Count 2.68 M/uL Hemoglobin 8.6 g/dL Hematocrit 25.1 % Mean Corpuscular Volume 93.7 fL Mean Corpuscular Hemoglobin 32.1 pg Mean Corpuscular Hemoglobin Concent 34.3 g/dl RDW Standard Deviation 43.2 fL RDW Coefficient of Variation 12.7 % Platelet Count 381 K/uL Mean Platelet Volume 8.6 fL Prothrombin Time 13.0 SECONDS Prothromb Time International Ratio 1.2 Activated Partial Thromboplast Time 55.8 SECONDS Partial Thromboplastin Ratio 2.1 Estimated Average Glucose 160 mg/dl Hemoglobin A1c 7.2 % Total Bilirubin 0.3 mg/dl Direct Bilirubin 0.2 mg/dl Aspartate Amino Transf (AST/SGOT) 118 U/L Alanine Aminotransferase (ALT/SGPT) 155 U/L Alkaline Phosphatase 252 U/L Total Protein 6.3 gm/dl Albumin 1.8 gm/dl Lipase 659 U/L Test 05/12/17 11:22 05/12/17 16:15 Bedside Glucose 136 mg/dl 134 mg/dl Assessment and Plan This is a 77 year old male with a PMH of traumatic intracranial hemorrhage, R orbital compartment syndrome s/p canthotomy, hx. of chronic alcoholism, DM2 and diabetic polyneuropathy, depression, HTN, HLD, seizure disorder, gout, BPH - presents with acute R LE DVT Acute Right LE DVT Hx. of Traumatic Intracranial Hemorrhage R Orbital Compartment Syndrome s/p Canthotomy 05/12 INR continues to be 1.2 will add Coumadin 10mg tonight recheck INR in AM 05/11 patient was sent from [facility] where he was getting rehab due to concern for acute DVT Dopplers on admission confirmed and acute R LE DVT he had a recent traumatic brain injury and intracranial hemorrhage; was seen by neurosurgery in [place] Head CT on admission showed no intracranial bleeding after speaking with neurosurgery in [place] and ophthalmology - it was deemed safe to begin anticoagulation will need three months of anticoagulation currently on an IV heparin drip -- bridging to Coumadin INR on 05/11 is 1.2, will give another 5mg of Coumadin and recheck INR in AM case was discussed with Dr. Tafoya (neurosurgery) at [facility] - given negative head CT, bleeding risks are considered low case also discussed with Dr. Palm (ophthalmology) at [facility] - ok to anticoagulate with canthotomy history Lethargy/Weakness Underlying Depression? intermittent lethargy is still concerning, though repeated head CT's confirm no new intracranial bleed as per records, patient was on amitriptyline, possibly for depression currently not on amitriptyline - lethargy is possible a withdrawal symptom? patient states he feels depressed - started on Lexapro and Ativan BID dosing will continue PT/OT - plan to d/c back to [facility] after IV heparin to Coumadin transition Gout Flare possible flare up of gout will stop allopurinol start colchicine 0.6mg BID Elevated LFTs possibly due to Dilantin? initially neurology was consulted due to transitioning from Dilantin to Keppra this transition has been made, but his LFTs continue to trend upwards GI re-consulted for further input Seizure Disorder changed from Dilantin to Keppra Acute Kidney Injury - resolved creatinine on admission at 1.4 now back down to less than one encouraged PO intake Hyponatremia - improved likely secondary to dehydration will monitor DM2 currently on an insulin sliding scale will check an Ha1c in the AM HTN BP controlled continue current medications L Shoulder Pain L shoulder radiograph - no acute fractures, likely chronically rotator cuff tear orthopedic input - possible steroid injection, no surgical intervention holding narcotics, Toradol, colchicine, tylenol for now PT/OT - plan to d/c to rehab DVT ppx IV heparin FULL CODE
[2017-05-12] MEDS: TAMSULOSIN HCL 0.4 MG CAP PO SCH (20:38)
[2017-05-12 22:58] VITALS: BP 103/61; PULSE 75; TEMP 36.6; O2SAT 96
[2017-05-12] MEDS: VANCOMYCIN INJ 1,250 MG in SODIUM CHLORIDE 0.9% 250ML 250 ML IV SCH (23:56)
[2017-05-13] MEDS: LEVOTHYROXINE 25 MCG TAB PO SCH (05:42)
[2017-05-13] MEDS: GABAPENTIN 100 MG CAP PO SCH ×3 (05:42→20:11)
[2017-05-13 07:20] VITALS: BP 154/82; PULSE 67; TEMP 36.4; O2SAT 97
[2017-05-13 08:00] LABS: INR 1.1 (0.9-1.1)
[2017-05-13] MEDS: BOOST GLUCOSE CONTROL PO SCH ×2 (08:00→16:24)
[2017-05-13 08:08] LABS: PTT PATIENT 68.6 SECONDS (21.0-31.0)
[2017-05-13 08:11] LABS: ALBUMIN 2.2 gm/dl (3.4-5.0); CREATININE 0.65 mg/dl (0.60-1.40)
[2017-05-13 08:30] VITALS: O2SAT 97
[2017-05-13] MEDS: CEROVITE ADV FORMULA TAB PO SCH (09:28)
[2017-05-13] MEDS: METOPROLOL SUCC 50MG EXT REL TAB PO SCH (09:28)
[2017-05-13] MEDS: THIAMINE HCL 100 MG TAB PO SCH (09:29)
[2017-05-13] MEDS: ESCITALOPRAM OXALATE 10 MG TAB PO SCH (09:29)
[2017-05-13] MEDS: LISINOPRIL 10 MG TAB PO SCH (09:29)
[2017-05-13] MEDS: DEXAMETH OP OPR SCH ×4 (09:30→20:00)
[2017-05-13] MEDS: NEOMYCIN OPR SCH ×4 (09:30→20:00)
[2017-05-13] MEDS: POLYMYX OPR SCH ×4 (09:30→20:00)
[2017-05-13] MEDS: COLCHICINE 0.6 MG TAB PO SCH ×2 (09:30→20:09)
[2017-05-13] MEDS: LEVETIRACETAM 500 MG TAB PO SCH ×2 (09:30→20:12)
[2017-05-13] MEDS: INSULIN ASPART 100 UNITS/ML 3 ML PEN SC SCH ×4 (09:31→20:11)
[2017-05-13] MEDS: VANCOMYCIN INJ 1,250 MG in SODIUM CHLORIDE 0.9% 250ML 250 ML IV SCH ×3 (11:46→22:24)
[2017-05-13] MEDS: HEPARIN 25,000 UNIT/500ML D5W 500 ML IV PRN (11:48)
[2017-05-13] MEDS ORDERED: KETOROLAC TROMETHAMINE 15 MG/ML VIAL IV. STA (14:48)
[2017-05-13 15:05] VITALS: BP 130/78; PULSE 68; TEMP 36.3; O2SAT 97
[2017-05-13] MEDS ORDERED: WARFARIN SOD 5 MG TAB PO SCH (16:00)
--- NOTE | 2017-05-13 16:49 | Progress Note ---
Subjective Date of Service: May 13, 2017. Subjective Pt evaluation today including: conversation w/ patient, physical exam, lab review, review of studies, review of inpatient medication list Saw/examined the patient in room 453 No problems/issues to note today, less lethargic today Joint pain persists, but the swelling has gone down. Review of Systems Constitutional: + weakness, No fever, No chills Respiratory: No shortness of breath Cardiac: No chest pain Abdomen: No pain, No nausea, No vomiting, No diarrhea Medications Current Inpatient Medications Medications (Trade) Dose Ordered Sig/Jay Route Start Time Stop Time Status Last Admin Dose Admin Ondansetron HCl (Zofran Inj) 4 mg Q6H PRN IV 05/02/17 18:45 06/01/17 18:44 Heparin Sodium/ Dextrose 500 ml @ 24 mls/hr [id number] PRN IV 05/02/17 19:30 06/01/17 19:29 05/13/17 11:48 24 MLS/HR Gabapentin (Neurontin Cap) 100 mg Q8 PO 05/02/17 22:00 06/01/17 21:59 05/13/17 13:36 100 MG Levothyroxine Sodium (Synthroid Tab) 25 mcg DAILYBB PO 05/03/17 06:00 06/02/17 06:59 05/13/17 05:42 25 MCG Metoprolol Succinate (Toprol Xl Tab) 50 mg DAILY PO 05/03/17 09:00 06/02/17 08:59 05/13/17 09:28 50 MG Neomycin/ Polymyxin/ Dexamethasone (Maxitrol Oph Oint) 1 appln QID OPR 05/02/17 21:00 06/01/17 20:59 05/13/17 09:30 1 APPLN Tamsulosin HCl (Flomax Cap) 0.4 mg HS PO 05/02/17 21:00 06/01/17 20:59 05/12/17 20:38 0.4 MG Thiamine HCl (Vitamin B-1 Tab) 50 mg QDB PO 05/03/17 07:30 06/02/17 07:59 05/13/17 09:29 50 MG Polyethylene (Miralax Powder Packet) 17 gm QDL PRN PO 05/02/17 19:30 06/01/17 19:29 Docusate Sodium (coLACE CAP) 100 mg BID PRN PO 05/03/17 21:00 06/01/17 20:59 Levetiracetam (Keppra Tab) 500 mg BID PO 05/03/17 13:45 06/02/17 20:59 05/13/17 09:30 500 MG Acetaminophen (Tylenol Tab) 650 mg Q8 PRN PO 05/03/17 17:45 06/01/17 18:44 Future Hold 05/07/17 16:05 650 MG Insulin Aspart (novoLOG ASPART) SLIDING SCALE If C... ACHS SC 05/09/17 22:00 06/08/17 21:59 05/10/17 21:41 1 UNITS Glucose (Glucose 40% Gel) 15-30 GRAMS 15 GRAMS... UD PRN PO 05/09/17 21:00 06/08/17 20:59 Glucose (Glucose Chew Tab) 4-8 Tablets 4 Tabl... UD PRN PO 05/09/17 21:00 06/08/17 20:59 Dextrose (Dextrose 50% 50ML Syringe) 25-50ML OF 50% DW IV FOR... UD PRN IV 05/09/17 21:00 06/08/17 20:59 Glucagon (Glucagon Inj) 1 mg UD PRN SQ 05/09/17 21:00 06/08/17 20:59 Colchicine (Colchicine Tab) 0.6 mg BID PO 05/10/17 20:00 06/09/17 19:59 05/13/17 09:30 0.6 MG Enteral Nutritional Formula (Boost Glucose Control) 1 can BIDM PO 05/10/17 17:00 06/09/17 16:59 05/13/17 16:24 1 CAN Lorazepam (Ativan Tab) 0.5 mg BID PRN PO 05/11/17 13:30 06/10/17 13:29 05/13/17 00:02 0.5 MG Escitalopram Oxalate (Lexapro Tab) 10 mg QAM PO 05/12/17 08:00 06/11/17 07:59 05/13/17 09:29 10 MG Lisinopril (Zestril Tab) 10 mg QAM PO 05/12/17 08:00 06/11/17 07:59 05/13/17 09:29 10 MG Folic Acid (Folvite Tab) 1 mg QAM PO 05/12/17 08:00 06/11/17 07:59 05/13/17 09:30 1 MG Multivitamins/ Minerals (Multivitamin W/ Minerals Tab) 1 tab QAM PO 05/12/17 08:00 06/11/17 07:59 05/13/17 09:28 1 TAB Vancomycin HCl 1250 mg/Sodium Chloride 275 ml @ 125 mls/hr Q12H IV 05/12/17 23:00 05/14/17 22:59 05/13/17 13:36 125 MLS/HR Miscellaneous Information (Consult) 1 ea UD PRN N/A 05/12/17 10:45 06/11/17 10:44 Warfarin Sodium (Coumadin Tab) 12.5 mg DAILY@16 PO 05/13/17 16:00 06/11/17 15:59 05/13/17 16:00 12.5 MG Objective Vital Signs Date Time Temp Pulse Resp B/P (MAP) Pulse Ox O2 Delivery O2 Flow Rate FiO2 05/13/17 15:05 36.3 68 20 130/78 (95) 97 05/13/17 08:30 97 Room Air 05/13/17 07:20 36.4 67 20 154/82 (106) 97 05/13/17 00:00 Room Air 05/12/17 22:58 36.6 75 18 103/61 (75) 96 Room Air 05/12/17 20:00 Room Air Physical Exam General Appearance: no apparent distress Eyes: + pertinent finding (post-surgical changes of R eye) Respiratory/Chest: lungs clear, normal breath sounds, no respiratory distress, no accessory muscle use Cardiovascular: regular rate, rhythm, no edema, no murmur Extremities: normal inspection, no pedal edema Neurologic/Psychiatric: no motor/sensory deficits, alert, normal mood/affect Laboratory Results Last 24 Hours Test 05/12/17 20:30 05/13/17 07:20 05/13/17 07:30 05/13/17 11:15 Bedside Glucose 127 mg/dl 112 mg/dl 134 mg/dl Prothrombin Time 12.0 SECONDS Prothromb Time International Ratio 1.1 Activated Partial Thromboplast Time 68.6 SECONDS Partial Thromboplastin Ratio 2.6 Creatinine 0.65 mg/dl Est Creatinine Clear Calc Drug Dose 98.2 ml/min Estimated GFR () 110.3 Estimated GFR (Non- 95.2 Total Bilirubin 0.4 mg/dl Direct Bilirubin 0.2 mg/dl Aspartate Amino Transf (AST/SGOT) 87 U/L Alanine Aminotransferase (ALT/SGPT) 141 U/L Alkaline Phosphatase 224 U/L Total Protein 7.0 gm/dl Albumin 2.2 gm/dl Assessment and Plan This is a 77 year old male with a PMH of traumatic intracranial hemorrhage, R orbital compartment syndrome s/p canthotomy, hx. of chronic alcoholism, DM2 and diabetic polyneuropathy, depression, HTN, HLD, seizure disorder, gout, BPH - presents with acute R LE DVT Acute Right LE DVT Hx. of Traumatic Intracranial Hemorrhage R Orbital Compartment Syndrome s/p Canthotomy 05/13 will increase Coumadin to 12.5mg tonight recheck INR in AM INR goal of 2-3 and then overlap with IV heparin x2 days discussed Lovenox injections - patient would like to try to continue to increase Coumadin until at goal was started on Vancomycin for blood culture x1, second set is negative; monitor and adjust as needed 05/12 INR continues to be 1.2 will add Coumadin 10mg tonight recheck INR in AM 05/11 patient was sent from [facility] where he was getting rehab due to concern for acute DVT Dopplers on admission confirmed and acute R LE DVT he had a recent traumatic brain injury and intracranial hemorrhage; was seen by neurosurgery in [place] Head CT on admission showed no intracranial bleeding after speaking with neurosurgery in [place] and ophthalmology - it was deemed safe to begin anticoagulation will need three months of anticoagulation currently on an IV heparin drip -- bridging to Coumadin INR on 05/11 is 1.2, will give another 5mg of Coumadin and recheck INR in AM case was discussed with Dr. Tafoya (neurosurgery) at [facility] - given negative head CT, bleeding risks are considered low case also discussed with Dr. Plam (ophthalmology) at [facility] - ok to anticoagulate with canthotomy history Lethargy/Weakness Underlying Depression? intermittent lethargy is still concerning, though repeated head CT's confirm no new intracranial bleed as per records, patient was on amitriptyline, possibly for depression currently not on amitriptyline - lethargy is possible a withdrawal symptom? patient states he feels depressed - started on Lexapro and Ativan BID dosing will continue PT/OT - plan to d/c back to [facility] after IV heparin to Coumadin transition Gout Flare possible flare up of gout will stop allopurinol start colchicine 0.6mg BID Elevated LFTs possibly due to Dilantin? initially neurology was consulted due to transitioning from Dilantin to Keppra this transition has been made, but his LFTs continue to trend upwards GI re-consulted for further input Seizure Disorder changed from Dilantin to Keppra Acute Kidney Injury - resolved creatinine on admission at 1.4 now back down to less than one encouraged PO intake Hyponatremia - improved likely secondary to dehydration will monitor DM2 currently on an insulin sliding scale will check an Ha1c in the AM HTN BP controlled continue current medications L Shoulder Pain L shoulder radiograph - no acute fractures, likely chronically rotator cuff tear orthopedic input - possible steroid injection, no surgical intervention holding narcotics, Toradol, colchicine, tylenol for now PT/OT - plan to d/c to rehab DVT ppx IV heparin FULL CODE
[2017-05-13] MEDS: TAMSULOSIN HCL 0.4 MG CAP PO SCH (20:10)
[2017-05-13 23:39] VITALS: BP 114/60; PULSE 94; TEMP 36.8; O2SAT 99
[2017-05-14] MEDS: GABAPENTIN 100 MG CAP PO SCH ×3 (05:51→19:46)
[2017-05-14] MEDS: LEVOTHYROXINE 25 MCG TAB PO SCH (06:20)
[2017-05-14 07:08] VITALS: BP 145/77; PULSE 65; TEMP 36.5; O2SAT 97
[2017-05-14 07:15] LABS: HEMATOCRIT 26.6 % (42-52); MEAN CORPUSCULAR HEMOGLOBIN 31.8 pg (25-34); MEAN CORPUSCULAR HGB CONC 33.8 g/dl (32-36); MEAN PLATELET VOLUME 8.7 fL (7.4-10.4); PLATELET COUNT 419 K/uL (130-400); RED CELL DISTRIBUTION WIDTH SD 44.7 fL (36.4-46.3); WHITE BLOOD COUNT 6.17 K/uL (4.8-10.8)
[2017-05-14 07:31] LABS: INR 1.2 (0.9-1.1)
[2017-05-14 07:37] LABS: PTT PATIENT 61.8 SECONDS (21.0-31.0)
[2017-05-14 07:39] LABS: CALCIUM 9.3 mg/dl (8.5-10.1); CREATININE 0.64 mg/dl (0.60-1.40); PHOSPHORUS 3.4 mg/dl (2.5-4.9); POTASSIUM 3.6 mmol/L (3.5-5.1)
[2017-05-14] MEDS: METOPROLOL SUCC 50MG EXT REL TAB PO SCH (09:24)
[2017-05-14] MEDS: ESCITALOPRAM OXALATE 10 MG TAB PO SCH (09:24)
[2017-05-14] MEDS: INSULIN ASPART 100 UNITS/ML 3 ML PEN SC SCH ×4 (09:24→20:54)
[2017-05-14] MEDS: CEROVITE ADV FORMULA TAB PO SCH (09:24)
[2017-05-14] MEDS: THIAMINE HCL 100 MG TAB PO SCH (09:25)
[2017-05-14] MEDS: LISINOPRIL 10 MG TAB PO SCH (09:25)
[2017-05-14] MEDS: NEOMYCIN OPR SCH ×4 (09:25→19:12)
[2017-05-14] MEDS: DEXAMETH OP OPR SCH ×4 (09:25→19:12)
[2017-05-14] MEDS: LEVETIRACETAM 500 MG TAB PO SCH ×2 (09:25→19:46)
[2017-05-14] MEDS: POLYMYX OPR SCH ×4 (09:25→19:12)
[2017-05-14] MEDS: BOOST GLUCOSE CONTROL PO SCH ×2 (09:26→16:27)
[2017-05-14] MEDS: HEPARIN 25,000 UNIT/500ML D5W 500 ML IV PRN (10:21)
[2017-05-14] MEDS: VANCOMYCIN INJ 1,250 MG in SODIUM CHLORIDE 0.9% 250ML 250 ML IV SCH (10:21)
--- NOTE | 2017-05-14 14:52 | Progress Note ---
Subjective Date of Service: May 14, 2017. Subjective Pt evaluation today including: conversation w/ patient, physical exam, lab review, review of studies, review of inpatient medication list Saw/examined the patient in room 453 No problems to note today very eager to go to rehab Review of Systems Constitutional: No fever, No chills, No weakness Respiratory: No cough, No sputum, No shortness of breath Cardiac: No chest pain Abdomen: No pain, No nausea, No vomiting, No diarrhea Musculoskeletal: No joint pain Male : No dysuria, No urinary frequency Heme: No abnormal bleeding/bruising Medications Current Inpatient Medications Medications (Trade) Dose Ordered Sig/Jay Route Start Time Stop Time Status Last Admin Dose Admin Ondansetron HCl (Zofran Inj) 4 mg Q6H PRN IV 05/02/17 18:45 06/01/17 18:44 Heparin Sodium/ Dextrose 500 ml @ 24 mls/hr [id number] PRN IV 05/02/17 19:30 06/01/17 19:29 05/14/17 10:21 24 MLS/HR Gabapentin (Neurontin Cap) 100 mg Q8 PO 05/02/17 22:00 06/01/17 21:59 05/14/17 14:00 100 MG Levothyroxine Sodium (Synthroid Tab) 25 mcg DAILYBB PO 05/03/17 06:00 06/02/17 06:59 05/14/17 06:20 25 MCG Metoprolol Succinate (Toprol Xl Tab) 50 mg DAILY PO 05/03/17 09:00 06/02/17 08:59 05/14/17 09:24 50 MG Neomycin/ Polymyxin/ Dexamethasone (Maxitrol Oph Oint) 1 appln QID OPR 05/02/17 21:00 06/01/17 20:59 05/14/17 13:04 1 APPLN Tamsulosin HCl (Flomax Cap) 0.4 mg HS PO 05/02/17 21:00 06/01/17 20:59 05/13/17 20:10 0.4 MG Thiamine HCl (Vitamin B-1 Tab) 50 mg QDB PO 05/03/17 07:30 06/02/17 07:59 05/14/17 09:25 50 MG Polyethylene (Miralax Powder Packet) 17 gm QDL PRN PO 05/02/17 19:30 06/01/17 19:29 Docusate Sodium (coLACE CAP) 100 mg BID PRN PO 05/03/17 21:00 06/01/17 20:59 Levetiracetam (Keppra Tab) 500 mg BID PO 05/03/17 13:45 06/02/17 20:59 05/14/17 09:25 500 MG Acetaminophen (Tylenol Tab) 650 mg Q8 PRN PO 05/03/17 17:45 06/01/17 18:44 Future Hold 05/07/17 16:05 650 MG Insulin Aspart (novoLOG ASPART) SLIDING SCALE If C... ACHS SC 05/09/17 22:00 06/08/17 21:59 05/10/17 21:41 1 UNITS Glucose (Glucose 40% Gel) 15-30 GRAMS 15 GRAMS... UD PRN PO 05/09/17 21:00 06/08/17 20:59 Glucose (Glucose Chew Tab) 4-8 Tablets 4 Tabl... UD PRN PO 05/09/17 21:00 06/08/17 20:59 Dextrose (Dextrose 50% 50ML Syringe) 25-50ML OF 50% DW IV FOR... UD PRN IV 05/09/17 21:00 06/08/17 20:59 Glucagon (Glucagon Inj) 1 mg UD PRN SQ 05/09/17 21:00 06/08/17 20:59 Enteral Nutritional Formula (Boost Glucose Control) 1 can BIDM PO 05/10/17 17:00 06/09/17 16:59 05/13/17 16:24 1 CAN Lorazepam (Ativan Tab) 0.5 mg BID PRN PO 05/11/17 13:30 06/10/17 13:29 05/13/17 00:02 0.5 MG Escitalopram Oxalate (Lexapro Tab) 10 mg QAM PO 05/12/17 08:00 06/11/17 07:59 05/14/17 09:24 10 MG Lisinopril (Zestril Tab) 10 mg QAM PO 05/12/17 08:00 06/11/17 07:59 05/14/17 09:25 10 MG Folic Acid (Folvite Tab) 1 mg QAM PO 05/12/17 08:00 06/11/17 07:59 05/14/17 09:25 1 MG Multivitamins/ Minerals (Multivitamin W/ Minerals Tab) 1 tab QAM PO 05/12/17 08:00 06/11/17 07:59 05/14/17 09:24 1 TAB Vancomycin HCl 1250 mg/Sodium Chloride 275 ml @ 125 mls/hr Q12H IV 05/12/17 23:00 05/14/17 22:59 05/14/17 10:21 125 MLS/HR Miscellaneous Information (Consult) 1 ea UD PRN N/A 05/12/17 10:45 05/14/17 21:59 Warfarin Sodium (Coumadin Tab) 15 mg DAILY@16 PO 05/14/17 16:00 06/13/17 15:59 Objective Vital Signs Date Time Temp Pulse Resp B/P (MAP) Pulse Ox O2 Delivery O2 Flow Rate FiO2 05/14/17 08:15 Room Air 05/14/17 07:08 36.5 65 18 145/77 (99) 97 Room Air 05/14/17 00:10 Room Air 05/13/17 23:39 36.8 94 20 114/60 (78) 99 Room Air 05/13/17 16:00 Room Air 05/13/17 15:05 36.3 68 20 130/78 (95) 97 Physical Exam General Appearance: no apparent distress ENT: + pertinent finding (R eye post-surgical changes) Respiratory/Chest: lungs clear, normal breath sounds, no respiratory distress, no accessory muscle use Cardiovascular: regular rate, rhythm, no edema, no murmur Neurologic/Psychiatric: no motor/sensory deficits, alert, normal mood/affect Laboratory Results Last 24 Hours Test 05/13/17 16:19 05/13/17 20:10 05/14/17 06:46 05/14/17 07:19 Bedside Glucose 105 mg/dl 159 mg/dl 99 mg/dl White Blood Count 6.17 K/uL Red Blood Count 2.83 M/uL Hemoglobin 9.0 g/dL Hematocrit 26.6 % Mean Corpuscular Volume 94.0 fL Mean Corpuscular Hemoglobin 31.8 pg Mean Corpuscular Hemoglobin Concent 33.8 g/dl RDW Standard Deviation 44.7 fL RDW Coefficient of Variation 13.0 % Platelet Count 419 K/uL Mean Platelet Volume 8.7 fL Prothrombin Time 12.9 SECONDS Prothromb Time International Ratio 1.2 Activated Partial Thromboplast Time 61.8 SECONDS Partial Thromboplastin Ratio 2.4 Sodium Level 141 mmol/L Potassium Level 3.6 mmol/L Chloride Level 108 mmol/L Carbon Dioxide Level 21 mmol/L Anion Gap 12.0 mmol/L Blood Urea Nitrogen 17 mg/dl Creatinine 0.64 mg/dl Est Creatinine Clear Calc Drug Dose 99.7 ml/min Estimated GFR () 111.0 Estimated GFR (Non- 95.8 BUN/Creatinine Ratio 27.1 Random Glucose 113 mg/dl Calcium Level 9.3 mg/dl Phosphorus Level 3.4 mg/dl Magnesium Level 2.0 mg/dl Assessment and Plan This is a 77 year old male with a PMH of traumatic intracranial hemorrhage, R orbital compartment syndrome s/p canthotomy, hx. of chronic alcoholism, DM2 and diabetic polyneuropathy, depression, HTN, HLD, seizure disorder, gout, BPH - presents with acute R LE DVT Acute Right LE DVT Hx. of Traumatic Intracranial Hemorrhage R Orbital Compartment Syndrome s/p Canthotomy 05/14 plan to d/c to rehab in AM will check INR in AM plan to d/c on a Lovenox to Coumadin bridge at [facility] 05/13 will increase Coumadin to 12.5mg tonight recheck INR in AM INR goal of 2-3 and then overlap with IV heparin x2 days discussed Lovenox injections - patient would like to try to continue to increase Coumadin until at goal was started on Vancomycin for blood culture x1, second set is negative; monitor and adjust as needed 05/12 INR continues to be 1.2 will add Coumadin 10mg tonight recheck INR in AM 05/11 patient was sent from [facility] where he was getting rehab due to concern for acute DVT Dopplers on admission confirmed and acute R LE DVT he had a recent traumatic brain injury and intracranial hemorrhage; was seen by neurosurgery in [place] Head CT on admission showed no intracranial bleeding after speaking with neurosurgery in [place] and ophthalmology - it was deemed safe to begin anticoagulation will need three months of anticoagulation currently on an IV heparin drip -- bridging to Coumadin INR on 05/11 is 1.2, will give another 5mg of Coumadin and recheck INR in AM case was discussed with Dr. Tafoya (neurosurgery) at [facility] - given negative head CT, bleeding risks are considered low case also discussed with Dr. Palm (ophthalmology) at [facility] - ok to anticoagulate with canthotomy history Lethargy/Weakness Underlying Depression? intermittent lethargy is still concerning, though repeated head CT's confirm no new intracranial bleed as per records, patient was on amitriptyline, possibly for depression currently not on amitriptyline - lethargy is possible a withdrawal symptom? patient states he feels depressed - started on Lexapro and Ativan BID dosing will continue PT/OT - plan to d/c back to [facility] after IV heparin to Coumadin transition Gout Flare possible flare up of gout will stop allopurinol start colchicine 0.6mg BID Elevated LFTs possibly due to Dilantin? initially neurology was consulted due to transitioning from Dilantin to Keppra this transition has been made, but his LFTs continue to trend upwards GI re-consulted for further input Seizure Disorder changed from Dilantin to Keppra Acute Kidney Injury - resolved creatinine on admission at 1.4 now back down to less than one encouraged PO intake Hyponatremia - improved likely secondary to dehydration will monitor DM2 currently on an insulin sliding scale will check an Ha1c in the AM HTN BP controlled continue current medications L Shoulder Pain L shoulder radiograph - no acute fractures, likely chronically rotator cuff tear orthopedic input - possible steroid injection, no surgical intervention holding narcotics, Toradol, colchicine, tylenol for now PT/OT - plan to d/c to rehab DVT ppx IV heparin FULL CODE
[2017-05-14 15:28] VITALS: BP 115/74; PULSE 76; TEMP 36.7; O2SAT 97
[2017-05-14] MEDS ORDERED: WARFARIN SOD 5 MG TAB PO SCH (16:00)
[2017-05-14] MEDS: TAMSULOSIN HCL 0.4 MG CAP PO SCH (19:46)
[2017-05-14 23:29] VITALS: BP 125/72; PULSE 62; TEMP 36.8; O2SAT 98
[2017-05-15] MEDS: LEVOTHYROXINE 25 MCG TAB PO SCH (05:52)
[2017-05-15] MEDS: GABAPENTIN 100 MG CAP PO SCH ×3 (05:52→20:51)
[2017-05-15 06:56] LABS: HEMATOCRIT 28.8 % (42-52); HEMOGLOBIN 9.8 g/dL (14.0-18.0); MEAN CELL VOLUME 94.7 fL (80-100); MEAN CORPUSCULAR HEMOGLOBIN 32.2 pg (25-34); MEAN PLATELET VOLUME 8.4 fL (7.4-10.4); PLATELET COUNT 513 K/uL (130-400); RED CELL DISTRIBUTION WIDTH SD 44.5 fL (36.4-46.3); WHITE BLOOD COUNT 7.28 K/uL (4.8-10.8)
[2017-05-15 06:57] VITALS: BP 136/79; PULSE 84; TEMP 36.5; O2SAT 98
[2017-05-15 07:16] LABS: INR 1.9 (0.9-1.1)
[2017-05-15 07:20] LABS: PTT PATIENT 80.4 SECONDS (21.0-31.0)
[2017-05-15 07:27] LABS: ALBUMIN 2.4 gm/dl (3.4-5.0); CALCIUM 9.7 mg/dl (8.5-10.1); CREATININE 0.81 mg/dl (0.60-1.40); POTASSIUM 3.6 mmol/L (3.5-5.1)
[2017-05-15 07:29] LABS: TOTAL PROTEIN 6.9 gm/dl (6.4-8.2)
[2017-05-15] MEDS: LEVETIRACETAM 500 MG TAB PO SCH ×2 (07:40→20:50)
[2017-05-15] MEDS: CEROVITE ADV FORMULA TAB PO SCH (07:41)
[2017-05-15] MEDS: METOPROLOL SUCC 50MG EXT REL TAB PO SCH (07:41)
[2017-05-15] MEDS: LISINOPRIL 10 MG TAB PO SCH (07:41)
[2017-05-15] MEDS: THIAMINE HCL 100 MG TAB PO SCH (07:42)
[2017-05-15] MEDS: ESCITALOPRAM OXALATE 10 MG TAB PO SCH (07:42)
[2017-05-15] MEDS: BOOST GLUCOSE CONTROL PO SCH ×2 (07:42→17:00)
[2017-05-15] MEDS: POLYMYX OPR SCH ×4 (07:42→20:49)
[2017-05-15] MEDS: DEXAMETH OP OPR SCH ×4 (07:42→20:49)
[2017-05-15] MEDS: NEOMYCIN OPR SCH ×4 (07:42→20:49)
[2017-05-15] MEDS: INSULIN ASPART 100 UNITS/ML 3 ML PEN SC SCH ×4 (07:43→21:43)
[2017-05-15] MEDS: HEPARIN 25,000 UNIT/500ML D5W 500 ML IV PRN (09:29)
[2017-05-15] MEDS ORDERED: CMD25 PO (09:40)
[2017-05-15] MEDS ORDERED: ATV5 PO (09:40)
[2017-05-15] MEDS ORDERED: WARF10TA PO (09:40)
[2017-05-15] MEDS ORDERED: LVNIS120 SQ (09:40)
[2017-05-15] MEDS ORDERED: FLV1 PO (09:40)
[2017-05-15] MEDS ORDERED: CNT PO (09:40)
[2017-05-15] MEDS ORDERED: LXP10 PO (09:40)
[2017-05-15] MEDS ORDERED: NUTR-7 PO (09:40)
[2017-05-15] MEDS ORDERED: LSN10 PO (09:40)
[2017-05-15] MEDS ORDERED: LEVE500T13 PO (09:40)
[2017-05-15 15:30] LABS: PTT PATIENT 51.8 SECONDS (21.0-31.0)
[2017-05-15 15:56] VITALS: BP 107/66; PULSE 71; TEMP 36.2; O2SAT 96
[2017-05-15 16:00] VITALS: O2SAT 96
[2017-05-15] MEDS ORDERED: WARFARIN SOD 5 MG TAB PO SCH (16:00)
[2017-05-15] MEDS ORDERED: WARFARIN TAB 10 MG, WARFARIN TAB 2.5 MG PO SCH ×2 (16:00)
--- NOTE | 2017-05-15 18:07 | Progress Note ---
Subjective Date of Service: May 15, 2017. Subjective Pt evaluation today including: conversation w/ patient, physical exam, lab review, review of studies, review of inpatient medication list Saw/examined the patient in room 453 Feeling okay, eager to get out of the hospital and get rehab started Review of Systems Constitutional: No fever, No chills, No weakness Respiratory: No shortness of breath Cardiac: No chest pain Abdomen: No pain, No nausea, No vomiting, No diarrhea Medications Current Inpatient Medications Medications (Trade) Dose Ordered Sig/Jay Route Start Time Stop Time Status Last Admin Dose Admin Ondansetron HCl (Zofran Inj) 4 mg Q6H PRN IV 05/02/17 18:45 06/01/17 18:44 Heparin Sodium/ Dextrose 500 ml @ 21 mls/hr [id number] PRN IV 05/02/17 19:30 06/01/17 19:29 05/15/17 09:29 21 MLS/HR Gabapentin (Neurontin Cap) 100 mg Q8 PO 05/02/17 22:00 06/01/17 21:59 05/15/17 13:47 100 MG Levothyroxine Sodium (Synthroid Tab) 25 mcg DAILYBB PO 05/03/17 06:00 06/02/17 06:59 05/15/17 05:52 25 MCG Metoprolol Succinate (Toprol Xl Tab) 50 mg DAILY PO 05/03/17 09:00 06/02/17 08:59 05/15/17 07:41 50 MG Neomycin/ Polymyxin/ Dexamethasone (Maxitrol Oph Oint) 1 appln QID OPR 05/02/17 21:00 06/01/17 20:59 05/15/17 16:46 1 APPLN Tamsulosin HCl (Flomax Cap) 0.4 mg HS PO 05/02/17 21:00 06/01/17 20:59 05/14/17 19:46 0.4 MG Thiamine HCl (Vitamin B-1 Tab) 50 mg QDB PO 05/03/17 07:30 06/02/17 07:59 05/15/17 07:42 50 MG Polyethylene (Miralax Powder Packet) 17 gm QDL PRN PO 05/02/17 19:30 06/01/17 19:29 Docusate Sodium (coLACE CAP) 100 mg BID PRN PO 05/03/17 21:00 06/01/17 20:59 Levetiracetam (Keppra Tab) 500 mg BID PO 05/03/17 13:45 06/02/17 20:59 05/15/17 07:40 500 MG Acetaminophen (Tylenol Tab) 650 mg Q8 PRN PO 05/03/17 17:45 06/01/17 18:44 Future Hold 05/07/17 16:05 650 MG Insulin Aspart (novoLOG ASPART) SLIDING SCALE If C... ACHS SC 05/09/17 22:00 06/08/17 21:59 05/10/17 21:41 1 UNITS Glucose (Glucose 40% Gel) 15-30 GRAMS 15 GRAMS... UD PRN PO 05/09/17 21:00 06/08/17 20:59 Glucose (Glucose Chew Tab) 4-8 Tablets 4 Tabl... UD PRN PO 05/09/17 21:00 06/08/17 20:59 Dextrose (Dextrose 50% 50ML Syringe) 25-50ML OF 50% DW IV FOR... UD PRN IV 05/09/17 21:00 06/08/17 20:59 Glucagon (Glucagon Inj) 1 mg UD PRN SQ 05/09/17 21:00 06/08/17 20:59 Enteral Nutritional Formula (Boost Glucose Control) 1 can BIDM PO 05/10/17 17:00 06/09/17 16:59 05/15/17 17:00 1 CAN Lorazepam (Ativan Tab) 0.5 mg BID PRN PO 05/11/17 13:30 06/10/17 13:29 05/13/17 00:02 0.5 MG Escitalopram Oxalate (Lexapro Tab) 10 mg QAM PO 05/12/17 08:00 06/11/17 07:59 05/15/17 07:42 10 MG Lisinopril (Zestril Tab) 10 mg QAM PO 05/12/17 08:00 06/11/17 07:59 05/15/17 07:41 10 MG Folic Acid (Folvite Tab) 1 mg QAM PO 05/12/17 08:00 06/11/17 07:59 05/15/17 07:41 1 MG Multivitamins/ Minerals (Multivitamin W/ Minerals Tab) 1 tab QAM PO 05/12/17 08:00 06/11/17 07:59 05/15/17 07:41 1 TAB Warfarin Sodium (Coumadin Tab) 12.5 mg DAILY@16 PO 05/15/17 16:00 06/14/17 15:59 05/15/17 16:45 12.5 MG Objective Vital Signs Date Time Temp Pulse Resp B/P (MAP) Pulse Ox O2 Delivery O2 Flow Rate FiO2 05/15/17 15:56 36.2 71 20 107/66 (80) 96 Room Air 05/15/17 08:00 Room Air 05/15/17 06:57 36.5 84 20 136/79 (98) 98 Room Air 05/14/17 23:50 Room Air 05/14/17 23:29 36.8 62 18 125/72 (89) 98 Room Air Physical Exam General Appearance: no apparent distress Respiratory/Chest: lungs clear, normal breath sounds, no respiratory distress, no accessory muscle use Cardiovascular: regular rate, rhythm, no edema, no murmur Laboratory Results Last 24 Hours Test 05/14/17 20:04 05/15/17 06:25 05/15/17 07:26 05/15/17 11:26 Bedside Glucose 186 mg/dl 125 mg/dl 119 mg/dl White Blood Count 7.28 K/uL Red Blood Count 3.04 M/uL Hemoglobin 9.8 g/dL Hematocrit 28.8 % Mean Corpuscular Volume 94.7 fL Mean Corpuscular Hemoglobin 32.2 pg Mean Corpuscular Hemoglobin Concent 34.0 g/dl RDW Standard Deviation 44.5 fL RDW Coefficient of Variation 13.0 % Platelet Count 513 K/uL Mean Platelet Volume 8.4 fL Prothrombin Time 19.3 SECONDS Prothromb Time International Ratio 1.9 Activated Partial Thromboplast Time 80.4 SECONDS Partial Thromboplastin Ratio 3.1 Sodium Level 138 mmol/L Potassium Level 3.6 mmol/L Chloride Level 106 mmol/L Carbon Dioxide Level 26 mmol/L Anion Gap 6.0 mmol/L Blood Urea Nitrogen 17 mg/dl Creatinine 0.81 mg/dl Est Creatinine Clear Calc Drug Dose 78.8 ml/min Estimated GFR () 100.8 Estimated GFR (Non- 86.9 BUN/Creatinine Ratio 21.4 Random Glucose 132 mg/dl Calcium Level 9.7 mg/dl Total Bilirubin 0.2 mg/dl Aspartate Amino Transf (AST/SGOT) 52 U/L Alanine Aminotransferase (ALT/SGPT) 108 U/L Alkaline Phosphatase 201 U/L Total Protein 6.9 gm/dl Albumin 2.4 gm/dl Globulin 4.5 gm/dl Albumin/Globulin Ratio 0.5 Test 05/15/17 14:53 Activated Partial Thromboplast Time 51.8 SECONDS Partial Thromboplastin Ratio 2.0 Assessment and Plan This is a 77 year old male with a PMH of traumatic intracranial hemorrhage, R orbital compartment syndrome s/p canthotomy, hx. of chronic alcoholism, DM2 and diabetic polyneuropathy, depression, HTN, HLD, seizure disorder, gout, BPH - presents with acute R LE DVT Acute Right LE DVT Hx. of Traumatic Intracranial Hemorrhage R Orbital Compartment Syndrome s/p Canthotomy 05/15 INR today is 1.9 should overlap IV heparin/Lovenox with Coumadin over 2 days when Coumadin is therapeutic should likely be d/c'd to [facility] in AM, probably on 2 more days of Lovenox and Coumadin of 12.5mg 05/14 plan to d/c to rehab in AM will check INR in AM plan to d/c on a Lovenox to Coumadin bridge at [facility] 05/13 will increase Coumadin to 12.5mg tonight recheck INR in AM INR goal of 2-3 and then overlap with IV heparin x2 days discussed Lovenox injections - patient would like to try to continue to increase Coumadin until at goal was started on Vancomycin for blood culture x1, second set is negative; monitor and adjust as needed 05/12 INR continues to be 1.2 will add Coumadin 10mg tonight recheck INR in AM 05/11 patient was sent from [facility] where he was getting rehab due to concern for acute DVT Dopplers on admission confirmed and acute R LE DVT he had a recent traumatic brain injury and intracranial hemorrhage; was seen by neurosurgery in [place] Head CT on admission showed no intracranial bleeding after speaking with neurosurgery in [place] and ophthalmology - it was deemed safe to begin anticoagulation will need three months of anticoagulation currently on an IV heparin drip -- bridging to Coumadin INR on 05/11 is 1.2, will give another 5mg of Coumadin and recheck INR in AM case was discussed with Dr. Tafoya (neurosurgery) at [facility] - given negative head CT, bleeding risks are considered low case also discussed with Dr. Palm (ophthalmology) at [facility] - ok to anticoagulate with canthotomy history Lethargy/Weakness Underlying Depression? intermittent lethargy is still concerning, though repeated head CT's confirm no new intracranial bleed as per records, patient was on amitriptyline, possibly for depression currently not on amitriptyline - lethargy is possible a withdrawal symptom? patient states he feels depressed - started on Lexapro and Ativan BID dosing will continue PT/OT - plan to d/c back to [facility] after IV heparin to Coumadin transition Gout Flare possible flare up of gout will stop allopurinol start colchicine 0.6mg BID Elevated LFTs possibly due to Dilantin? initially neurology was consulted due to transitioning from Dilantin to Keppra this transition has been made, but his LFTs continue to trend upwards GI re-consulted for further input Seizure Disorder changed from Dilantin to Keppra Acute Kidney Injury - resolved creatinine on admission at 1.4 now back down to less than one encouraged PO intake Hyponatremia - improved likely secondary to dehydration will monitor DM2 currently on an insulin sliding scale will check an Ha1c in the AM HTN BP controlled continue current medications L Shoulder Pain L shoulder radiograph - no acute fractures, likely chronically rotator cuff tear orthopedic input - possible steroid injection, no surgical intervention holding narcotics, Toradol, colchicine, tylenol for now PT/OT - plan to d/c to rehab DVT ppx IV heparin FULL CODE
[2017-05-15] MEDS: TAMSULOSIN HCL 0.4 MG CAP PO SCH (20:50)
[2017-05-16 01:12] VITALS: BP 144/82; PULSE 73; TEMP 36.6; O2SAT 96
[2017-05-16] MEDS: LEVOTHYROXINE 25 MCG TAB PO SCH (06:09)
[2017-05-16] MEDS: GABAPENTIN 100 MG CAP PO SCH ×2 (06:10→13:18)
[2017-05-16] MEDS: HEPARIN 25,000 UNIT/500ML D5W 500 ML IV PRN ×2 (07:21→08:17)
[2017-05-16 07:30] VITALS: BP 135/82; PULSE 69; TEMP 36.7; O2SAT 96
[2017-05-16 07:33] LABS: HEMATOCRIT 29.3 % (42-52); HEMOGLOBIN 9.9 g/dL (14.0-18.0); MEAN CELL VOLUME 95.1 fL (80-100); MEAN CORPUSCULAR HEMOGLOBIN 32.1 pg (25-34); MEAN CORPUSCULAR HGB CONC 33.8 g/dl (32-36); MEAN PLATELET VOLUME 8.7 fL (7.4-10.4); PLATELET COUNT 461 K/uL (130-400); RED CELL DISTRIBUTION WIDTH CV 13.3 % (11.5-14.5); RED CELL DISTRIBUTION WIDTH SD 45.6 fL (36.4-46.3); WHITE BLOOD COUNT 6.55 K/uL (4.8-10.8)
[2017-05-16 07:54] LABS: INR 2.9 (0.9-1.1)
[2017-05-16 08:01] LABS: PTT PATIENT 76.9 SECONDS (21.0-31.0)
[2017-05-16 08:09] LABS: CALCIUM 10.2 mg/dl (8.5-10.1); CREATININE 0.82 mg/dl (0.60-1.40)
[2017-05-16] MEDS: BOOST GLUCOSE CONTROL PO SCH ×3 (08:33→15:45)
[2017-05-16] MEDS: INSULIN ASPART 100 UNITS/ML 3 ML PEN SC SCH ×2 (08:34→11:38)
[2017-05-16] MEDS: ESCITALOPRAM OXALATE 10 MG TAB PO SCH (08:34)
[2017-05-16] MEDS: THIAMINE HCL 100 MG TAB PO SCH (08:34)
[2017-05-16] MEDS: CEROVITE ADV FORMULA TAB PO SCH (08:34)
[2017-05-16] MEDS: METOPROLOL SUCC 50MG EXT REL TAB PO SCH (08:34)
[2017-05-16] MEDS: LISINOPRIL 10 MG TAB PO SCH (08:35)
[2017-05-16] MEDS: DEXAMETH OP OPR SCH ×3 (08:35→15:43)
[2017-05-16] MEDS: POLYMYX OPR SCH ×3 (08:35→15:43)
[2017-05-16] MEDS: NEOMYCIN OPR SCH ×3 (08:35→15:43)
[2017-05-16] MEDS: LEVETIRACETAM 500 MG TAB PO SCH (08:35)
--- NOTE | 2017-05-16 13:44 | Discharge Instructions ---
Discharge Instructions Date of Service May 16, 2017. Admission Reason for Admission: DVT Discharge Discharge Diagnosis / Problem: Acute right lower extremity DVT with involvement of the popliteal vein Discharge Goals Goal(s): Improve function, Improve disease control Activity Recommendations Activity Limitations: per Instructions/Follow-up section Shower/Bathe: no limitations . Instructions / Follow-Up Instructions / Follow-Up This is a 77 year old male with a PMH of traumatic intracranial hemorrhage (was seen by neurosurgery in [place]), R orbital compartment syndrome s/p canthotomy , hx. of chronic alcoholism, DM2 and diabetic polyneuropathy, depression, HTN, HLD, seizure disorder, gout, BPH. Patient was sent from [facility] where he was getting rehab due to concern for Acute Right LE DVT Dopplers on admission confirmed and acute R LE DVT Head CT on admission showed no intracranial bleeding after speaking with neurosurgery in [place] and ophthalmology - it was deemed safe to begin anticoagulation (case was discussed with Dr. Tafoya (neurosurgery) at [facility] - given negative head CT, bleeding risks are considered low case also discussed with Dr. Palm (ophthalmology) at [facility] - ok to anticoagulate with canthotomy history) Will need three months of anticoagulation Patient's INR 2.9 on 05/16/18, patient's coumadin decreased from 12.5 mg to 10 mg daily and IV heparin was discontinued. Patient should receive INR checks to ensure follow up INR in [facility] and post [facility] stay in order for Coumadin levels to be adjusted for INR goal of 2 to 3 DM2 - HbA1c 7.2 Seizure Disorder changed from Dilantin to Keppra Transaminitis - possibly due to Dilantin and initially neurology was consulted due to transitioning from Dilantin to Keppra, on Keppra only with transaminitis stabilized, was evaluated by gastroenterology and no sign of choledocholithiasis or biliary obstruction - possible sludge. will need outpatient lab monitoring Acute Kidney Injury - resolved Hyponatremia - likely secondary to dehydration, resolved HTN - BP controlled, continue Lisinopril and Metoprolol Succinate Depression - started on Lexapro and Ativan BID dosing Gout Flare - was treated with colchicine 0.6mg BID COAG NEG STAPH NOT LUGDUNENSIS in 1 blood culture of a set of 4 blood cultures and patient was treated with vancomycin L Shoulder Pain L shoulder radiograph - no acute fractures, likely chronically rotator cuff tear orthopedic input - possible steroid injection, no surgical intervention PT/OT - plan to d/c to rehab When patient is discharged from [facility], will need follow up appointments vs re-scheduling for 05/19/2017 1:00 PM Harish Ernandez MD [facility] Ophthalmology, [place] Lex Palm DO, Wicho Haque DO, , Opthalmology Call [phone] for [facility] clinic appointment line Current Hospital Diet Patient's current hospital diet: Regular Diet, Diabetes Type 2 Diet Discharge Diet Recommended Diet: Diabetes Type 2 Diet Pending Studies Studies pending at discharge: no Laboratory Results 05/16/17 07:07 05/16/17 07:07 Test 05/02/17 14:30 05/02/17 15:28 05/02/17 15:37 05/03/17 11:23 Influenza Type A Antigen Neg for Influ A (NEG) Influenza Type B Antigen Neg for Influ B (NEG) Total Creatine Kinase 42 U/L (39-308) Creatine Kinase MB 1.4 ng/ml (0.5-3.6) Creatine Kinase MB Ratio 3.3 (0-3.0) Troponin I < 0.015 ng/ml (0-0.045) Bedside Lactic Acid Venous 1.49 mmol/L (0.90-1.70) Ferritin 1605.0 ng/ml (8.0-388.0) [id number] 212 MG/DL (83-199) Ceruloplasmin 45 MG/DL (18-36) Immunoglobulin A 203 mg/dL (81-463) Anti-Nuclear Antibody Screen NEGATIVE (NEGATIVE) Anti-Mitochondrial Antibody LESS THAN 1:20 TITER Anti-Smooth Muscle Antibody 1:20 TITER Tissue Transglutaminase IgA Ab 1 U/mL (<4) Celiac Disease Interpretation see note Hepatitis A IgM Antibody NON-REACTIVE (NON-REACTIVE) Hepatitis B Surface Antigen NEG (NEG) Hepatitis B Core IgM Antibody NON-REACTIVE (NON-REACTIVE) Hepatitis C Antibody NEG (NEG) Test 05/03/17 12:23 05/04/17 06:43 05/04/17 06:46 05/05/17 04:51 Phenytoin (Dilantin) Level 14.6 mcg/mL (10-20) Hemochromatosis DNA Probe see note Folate 18.72 ng/mL (>5.38) Immature Granulocyte % (Auto) 0.7 % White Blood Count 2.89 K/uL (4.8-10.8) Red Blood Count 3.24 M/uL (4.7-6.1) Hemoglobin 10.5 g/dL (14.0-18.0) Hematocrit 30.4 % (42-52) Mean Corpuscular Volume 93.8 fL (80-100) Mean Corpuscular Hemoglobin 32.4 pg (25-34) Mean Corpuscular Hemoglobin Concent 34.5 g/dl (32-36) Platelet Count 115 K/uL (130-400) Mean Platelet Volume 9.0 fL (7.4-10.4) Neutrophils (%) (Auto) 37.4 % Lymphocytes (%) (Auto) 43.6 % Monocytes (%) (Auto) 13.8 % Eosinophils (%) (Auto) 3.8 % Basophils (%) (Auto) 0.7 % Neutrophils # (Auto) 1.08 K/uL (1.4-6.5) Lymphocytes # (Auto) 1.26 K/uL (1.2-3.4) Monocytes # (Auto) 0.40 K/uL (0.11-0.59) Eosinophils # (Auto) 0.11 K/uL (0-0.5) Basophils # (Auto) 0.02 K/uL (0-0.2) Immature Granulocyte # (Auto) 0.02 K/uL (0.00-0.02) Iron Level 70 mcg/dl (35-175) Total Iron Binding Capacity 151 mcg/dl (250-450) Test 05/10/17 07:16 05/11/17 13:30 05/12/17 06:30 05/12/17 06:37 Uric Acid 3.0 mg/dl (2.6-7.2) Urine Color DK YELLOW Urine Appearance CLEAR (CLEAR) Urine pH 5.0 (4.5-7.5) Urine Specific D[place] 1.019 (1.000-1.030) Urine Protein 2+ (NEG) Urine Glucose (UA) NEG (NEG) Urine Ketones NEG (NEG) Urine Occult Blood 2+ (NEG) Urine Nitrite NEG (NEG) Urine Bilirubin NEG (NEG) Urine Urobilinogen NEG (NEG) Urine Leukocyte Esterase NEG (NEG) Urine WBC (Auto) 1-5 /hpf (0-5) Urine RBC (Auto) 5-10 /hpf (0-4) Urine Hyaline Casts (Auto) 1-5 /lpf (0-5) Urine Epithelial Cells (Auto) 5-10 /lpf (0-5) Urine Bacteria (Auto) NEG (NEG) Estimated Average Glucose 160 mg/dl Hemoglobin A1c 7.2 % (4.5-5.6) Lipase 659 U/L (73-393) Test 05/13/17 07:20 05/14/17 06:46 05/15/17 06:25 05/15/17 20:15 Direct Bilirubin 0.2 mg/dl (0-0.2) Phosphorus Level 3.4 mg/dl (2.5-4.9) Magnesium Level 2.0 mg/dl (1.8-2.4) Total Bilirubin 0.2 mg/dl (0.2-1) Aspartate Amino Transf (AST/SGOT) 52 U/L (15-37) Alanine Aminotransferase (ALT/SGPT) 108 U/L (12-78) Alkaline Phosphatase 201 U/L (45-117) Total Protein 6.9 gm/dl (6.4-8.2) Albumin 2.4 gm/dl (3.4-5.0) Globulin 4.5 gm/dl (2.5-4.0) Albumin/Globulin Ratio 0.5 (0.9-2) Bedside Glucose 147 mg/dl (70-99) Test 05/16/17 07:07 Red Blood Count 3.08 M/uL (4.7-6.1) Mean Corpuscular Volume 95.1 fL (80-100) Mean Corpuscular Hemoglobin 32.1 pg (25-34) Mean Corpuscular Hemoglobin Concent 33.8 g/dl (32-36) RDW Standard Deviation 45.6 fL (36.4-46.3) RDW Coefficient of Variation 13.3 % (11.5-14.5) Mean Platelet Volume 8.7 fL (7.4-10.4) Prothrombin Time 30.1 SECONDS (9.0-12.0) Prothromb Time International Ratio 2.9 (0.9-1.1) Activated Partial Thromboplast Time 76.9 SECONDS (21.0-31.0) Partial Thromboplastin Ratio 3.0 Anion Gap 9.0 mmol/L (3-11) Est Creatinine Clear Calc Drug Dose 77.8 ml/min Estimated GFR () 100.3 Estimated GFR (Non- 86.5 BUN/Creatinine Ratio 25.1 (10-20) Calcium Level 10.2 mg/dl (8.5-10.1) Date/Time Source Procedure Growth Status 05/11/17 12:34 Blood Blood Culture - Final Coag Neg Staph Not Lugdunensis Coag Neg Staph Not Lugdunensis#2 Complete Hemoglobin A1c Test 05/12/17 06:30 Range/Units Estimated Average Glucose 160 mg/dl Hemoglobin A1c 7.2 H 4.5-5.6 % Medical Emergencies . Who to Call and When: Medical Emergencies: If at any time you feel your situation is an emergency, please call 911 immediately. . Non-Emergent Contact Non-Emergency issues call your: Primary Care Provider, Lap [facility]utter . . "Provider Documentation" section prepared by Rakesh Sherwood. . VTE Core Measure Inpt VTE Proph given/why not?: Warfarin (Coumadin)
--- NOTE | 2017-05-16 13:54 | Progress Note ---
Internal Med Progress Note Date of Service: May 16, 2017. Provider Documentation: SUBJECTIVE: Patient seen and examined. INR is therapeutic. Heparin drip discontinued. Patient denies bleeding from orifices. [facility] OBJECTIVE: Exam: General- no apparent distress Eyes- right eye lid post surgical changes,no drainage noted Neck-trachea midline Lungs- CTABL, no wheezing or rales Heart- regular s1/s2, no JVD , no carotid bruit , no lower ext edema Abdomen-soft, non tender , bowel sound present Extremities- no calf tenderness, no edema Neuro-awake and alert and oriented ASSESSMENT & PLAN: This is a 77 year old male with a PMH of traumatic intracranial hemorrhage (was seen by neurosurgery in [place]), R orbital compartment syndrome s/p canthotomy , hx. of chronic alcoholism, DM2 and diabetic polyneuropathy, depression, HTN, HLD, seizure disorder, gout, BPH. [facility] due to concern for Acute Right LE DVT Dopplers on admission confirmed and acute R LE DVT Head CT on admission showed no intracranial bleeding after speaking with neurosurgery in [place] and ophthalmology - it was deemed safe to begin anticoagulation (case was discussed with Dr. Tafoya (neurosurgery) at [facility] - given negative head CT, bleeding risks are considered low case also discussed with Dr. Palm (ophthalmology) at [facility] - ok to anticoagulate with canthotomy history) Will need three months of anticoagulation Patient's INR 2.9 on 05/16/18, patient's coumadin decreased from 12.5 mg to 10 mg daily and IV heparin was discontinued. Patient should receive INR checks to ensure [facility] and [facility] in order for Coumadin levels to be adjusted for INR goal of 2 to 3 DM2 - HbA1c 7.2 Seizure Disorder changed from Dilantin to Keppra Transaminitis - possibly due to Dilantin and initially neurology was consulted due to transitioning from Dilantin to Keppra, on Keppra only with transaminitis stabilized, was evaluated by gastroenterology and no sign of choledocholithiasis or biliary obstruction - possible sludge. will need outpatient lab monitoring Acute Kidney Injury - resolved Hyponatremia - likely secondary to dehydration, resolved HTN - BP controlled, continue Lisinopril and Metoprolol Succinate Depression - started on Lexapro and Ativan BID dosing Gout Flare - was treated with colchicine 0.6mg BID COAG NEG STAPH NOT LUGDUNENSIS in 1 blood culture of a set of 4 blood cultures and patient was treated with vancomycin L Shoulder Pain L shoulder radiograph - no acute fractures, likely chronically rotator cuff tear orthopedic input - possible steroid injection, no surgical intervention PT/OT - plan to d/c to rehab When [facility] is [facility], will need follow up appointments vs re-scheduling for 05/19/2017 1:00 PM Harish Ernandez MD [facility] [place] [facility]hthal[facility], [place] Lex Palm DO, Shabnam, Wicho Argueta DO, , Opthalmology Call [phone] for [facility] appointment line Vital Signs: Date Time Temp Pulse Resp B/P (MAP) Pulse Ox O2 Delivery O2 Flow Rate FiO2 05/16/17 08:10 Room Air 05/16/17 07:30 36.7 69 18 135/82 (99) 96 Room Air 05/16/17 01:12 36.6 73 20 144/82 (102) 96 Room Air 05/16/17 00:00 Room Air 05/15/17 16:00 96 Room Air 05/15/17 15:56 36.2 71 20 107/66 (80) 96 Room Air Lab Results: Results Past 24 Hours Test 05/15/17 14:53 05/15/17 16:39 05/15/17 20:15 05/16/17 07:07 Range/Units Activated Partial Thromboplast Time 51.8 76.9 21.0-31.0 SECONDS Partial Thromboplastin Ratio 2.0 3.0 Bedside Glucose 119 147 70-99 mg/dl White Blood Count 6.55 4.8-10.8 K/uL Red Blood Count 3.08 4.7-6.1 M/uL Hemoglobin 9.9 14.0-18.0 g/dL Hematocrit 29.3 42-52 % Mean Corpuscular Volume 95.1 80-100 fL Mean Corpuscular Hemoglobin 32.1 25-34 pg Mean Corpuscular Hemoglobin Concent 33.8 32-36 g/dl RDW Standard Deviation 45.6 36.4-46.3 fL RDW Coefficient of Variation 13.3 11.5-14.5 % Platelet Count 461 130-400 K/uL Mean Platelet Volume 8.7 7.4-10.4 fL Prothrombin Time 30.1 9.0-12.0 SECONDS Prothromb Time International Ratio 2.9 0.9-1.1 Sodium Level 141 136-145 mmol/L Potassium Level 4.0 3.5-5.1 mmol/L Chloride Level 107 98-107 mmol/L Carbon Dioxide Level 24 21-32 mmol/L Anion Gap 9.0 3-11 mmol/L Blood Urea Nitrogen 21 7-18 mg/dl Creatinine 0.82 0.60-1.40 mg/dl Est Creatinine Clear Calc Drug Dose 77.8 ml/min Estimated GFR () 100.3 Estimated GFR (Non- 86.5 BUN/Creatinine Ratio 25.1 10-20 Random Glucose 111 70-99 mg/dl Calcium Level 10.2 8.5-10.1 mg/dl
--- NOTE | 2017-05-16 14:24 | Discharge Instructions ---
Discharge Instructions Date of Service May 16, 2017. Admission Reason for Admission: DVT Discharge Discharge Diagnosis / Problem: (1) DVT (deep venous thrombosis) (2) DM type 2 (diabetes mellitus, type 2) (3) Depression (4) HTN (hypertension) VTE Date & Time Date of VTE Diagnosis: May 02, 2017 Time of VTE Diagnosis: 15:12 Discharge Goals Goal(s): Improve function, Increase independence, Improve disease control Activity Recommendations Activity Limitations: per Instructions/Follow-up section Shower/Bathe: no limitations . Instructions / Follow-Up Instructions / Follow-Up Medication Instructions: * Warfarin is a medicine prescribed to prevent blood clots * Warfarin will thin your blood and help prevent new clots * Take your medications exactly as directed * Never skip a dose. Never take a double dose. If you miss a dose, take it as soon as you remember * It is important for your doctor to monitor your prothrombin time (PT). This is a lab test * Keep your appointment for lab tests Risk of Adverse Drug Reactions and Interactions: * Warfarin increases your risk of bleeding * The food you eat and other medications you take can affect how Warfarin works in your body * Ask your doctor about daily aspirin therapy * It is very important to talk with your doctor about all of the other medicines , antibiotics, vitamins or herbal products that you are taking * All of your medication must be approved by your doctor, including new medicines, as well as medicines you have taken before you started taking Warfarin Diet: * In order for Warfarin to work properly, it is important to keep your intake of Vitamin K as consistent as possible * You should avoid any sudden change in Vitamin K intake * Report any significant changes in your diet or weight to your doctor Call your Primary Care doctor if you experience any of the following: * Swelling or Pain in your leg * Sudden, continuous pain deep in a muscle * Pain that worsens when you are active or when you stand still for a long time * Chest Pain * Sudden Shortness of Breath * Rapid or pounding heart beat * Fainting * Dizziness * Cough with blood or bloody sputum * Sweating more than normal * Bruises * Heavy or uncontrolled bleeding * Blood in your urine, stool or vomit * Black or tarry stools Caring for Your Self at Home: * Avoid sitting, standing or lying down for long periods without moving your legs and feet * When traveling by car, stop to get out and move around at least once every 3 hours * On long airplane, train or bus rides, get up and move around when possible * If you can't get up, wiggle your toes and tighten your calves to keep your blood moving Follow Up: It is important for you to keep your follow up appointments with your medical provider. This is a 77 year old male with a PMH of traumatic intracranial hemorrhage (was seen by neurosurgery in [place]), R orbital compartment syndrome s/p canthotomy , hx. of chronic alcoholism, DM2 and diabetic polyneuropathy, depression, HTN, HLD, seizure disorder, gout, BPH. Patient was sent from [facility] where he was getting rehab due to concern for Acute Right LE DVT (Acute right lower extremity DVT with involvement of the popliteal vein, posterior tibial vein, and peroneal veins) Dopplers on admission confirmed and acute R LE DVT Head CT on admission showed no intracranial bleeding after speaking with neurosurgery in [place] and ophthalmology - it was deemed safe to begin anticoagulation (case was discussed with Dr. Tafoya (neurosurgery) at [facility] - given negative head CT, bleeding risks are considered low case also discussed with Dr. Palm (ophthalmology) at [facility] - ok to anticoagulate with canthotomy history) Will need three months of anticoagulation Patient's INR 2.9 on 05/16/18, patient's coumadin decreased from 12.5 mg to 10 mg daily and IV heparin was discontinued. Patient should receive INR checks to ensure follow up INR in [facility] and post [facility] stay in order for Coumadin levels to be adjusted for INR goal of 2 to 3 DM2 - HbA1c 7.2, on sliding scale insulin in the hospital Seizure Disorder changed from Dilantin to Keppra Transaminitis - possibly due to Dilantin and initially neurology was consulted due to transitioning from Dilantin to Keppra, on Keppra only with transaminitis stabilized, was evaluated by gastroenterology and no sign of choledocholithiasis or biliary obstruction - possible sludge. will need outpatient lab monitoring Acute Kidney Injury - resolved Hyponatremia - likely secondary to dehydration, resolved HTN - BP controlled, continue Lisinopril and Metoprolol Succinate Depression - started on Lexapro and Ativan BID dosing Gout Flare - was treated with colchicine 0.6mg BID COAG NEG STAPH NOT LUGDUNENSIS in 1 blood culture of a set of 4 blood cultures and patient was treated with vancomycin L Shoulder Pain L shoulder radiograph - no acute fractures, likely chronically rotator cuff tear orthopedic input - possible steroid injection, no surgical intervention PT/OT - plan to d/c to rehab When patient is discharged from [facility], will need follow up appointments vs re-scheduling for 05/19/2017 1:00 PM Harish Ernandez MD [facility], [place] Lex Palm, , Shabnam, Wicho Argueta DO, Joe, Opthalmology Current Hospital Diet Patient's current hospital diet: Regular Diet, Diabetes Type 2 Diet Discharge Diet Recommended Diet: Diabetes Type 2 Diet Pending Studies Studies pending at discharge: no Laboratory Results 05/16/17 07:07 05/16/17 07:07 Test 05/02/17 14:30 05/02/17 15:28 05/02/17 15:37 05/03/17 11:23 Influenza Type A Antigen Neg for Influ A (NEG) Influenza Type B Antigen Neg for Influ B (NEG) Total Creatine Kinase 42 U/L (39-308) Creatine Kinase MB 1.4 ng/ml (0.5-3.6) Creatine Kinase MB Ratio 3.3 (0-3.0) Troponin I < 0.015 ng/ml (0-0.045) Bedside Lactic Acid Venous 1.49 mmol/L (0.90-1.70) Ferritin 1605.0 ng/ml (8.0-388.0) Gtdba-[id number] 212 MG/DL (83-199) Ceruloplasmin 45 MG/DL (18-36) Immunoglobulin A 203 mg/dL (81-463) Anti-Nuclear Antibody Screen NEGATIVE (NEGATIVE) Anti-Mitochondrial Antibody LESS THAN 1:20 TITER Anti-Smooth Muscle Antibody 1:20 TITER Tissue Transglutaminase IgA Ab 1 U/mL (<4) Celiac Disease Interpretation see note Hepatitis A IgM Antibody NON-REACTIVE (NON-REACTIVE) Hepatitis B Surface Antigen NEG (NEG) Hepatitis B Core IgM Antibody NON-REACTIVE (NON-REACTIVE) Hepatitis C Antibody NEG (NEG) Test 05/03/17 12:23 05/04/17 06:43 05/04/17 06:46 05/05/17 04:51 Phenytoin (Dilantin) Level 14.6 mcg/mL (10-20) Hemochromatosis DNA Probe see note Folate 18.72 ng/mL (>5.38) Immature Granulocyte % (Auto) 0.7 % White Blood Count 2.89 K/uL (4.8-10.8) Red Blood Count 3.24 M/uL (4.7-6.1) Hemoglobin 10.5 g/dL (14.0-18.0) Hematocrit 30.4 % (42-52) Mean Corpuscular Volume 93.8 fL (80-100) Mean Corpuscular Hemoglobin 32.4 pg (25-34) Mean Corpuscular Hemoglobin Concent 34.5 g/dl (32-36) Platelet Count 115 K/uL (130-400) Mean Platelet Volume 9.0 fL (7.4-10.4) Neutrophils (%) (Auto) 37.4 % Lymphocytes (%) (Auto) 43.6 % Monocytes (%) (Auto) 13.8 % Eosinophils (%) (Auto) 3.8 % Basophils (%) (Auto) 0.7 % Neutrophils # (Auto) 1.08 K/uL (1.4-6.5) Lymphocytes # (Auto) 1.26 K/uL (1.2-3.4) Monocytes # (Auto) 0.40 K/uL (0.11-0.59) Eosinophils # (Auto) 0.11 K/uL (0-0.5) Basophils # (Auto) 0.02 K/uL (0-0.2) Immature Granulocyte # (Auto) 0.02 K/uL (0.00-0.02) Iron Level 70 mcg/dl (35-175) Total Iron Binding Capacity 151 mcg/dl (250-450) Test 05/10/17 07:16 05/11/17 13:30 05/12/17 06:30 05/12/17 06:37 Uric Acid 3.0 mg/dl (2.6-7.2) Urine Color DK YELLOW Urine Appearance CLEAR (CLEAR) Urine pH 5.0 (4.5-7.5) Urine Specific [place] 1.019 (1.000-1.030) Urine Protein 2+ (NEG) Urine Glucose (UA) NEG (NEG) Urine Ketones NEG (NEG) Urine Occult Blood 2+ (NEG) Urine Nitrite NEG (NEG) Urine Bilirubin NEG (NEG) Urine Urobilinogen NEG (NEG) Urine Leukocyte Esterase NEG (NEG) Urine WBC (Auto) 1-5 /hpf (0-5) Urine RBC (Auto) 5-10 /hpf (0-4) Urine Hyaline Casts (Auto) 1-5 /lpf (0-5) Urine Epithelial Cells (Auto) 5-10 /lpf (0-5) Urine Bacteria (Auto) NEG (NEG) Estimated Average Glucose 160 mg/dl Hemoglobin A1c 7.2 % (4.5-5.6) Lipase 659 U/L (73-393) Test 05/13/17 07:20 05/14/17 06:46 05/15/17 06:25 05/15/17 20:15 Direct Bilirubin 0.2 mg/dl (0-0.2) Phosphorus Level 3.4 mg/dl (2.5-4.9) Magnesium Level 2.0 mg/dl (1.8-2.4) Total Bilirubin 0.2 mg/dl (0.2-1) Aspartate Amino Transf (AST/SGOT) 52 U/L (15-37) Alanine Aminotransferase (ALT/SGPT) 108 U/L (12-78) Alkaline Phosphatase 201 U/L (45-117) Total Protein 6.9 gm/dl (6.4-8.2) Albumin 2.4 gm/dl (3.4-5.0) Globulin 4.5 gm/dl (2.5-4.0) Albumin/Globulin Ratio 0.5 (0.9-2) Bedside Glucose 147 mg/dl (70-99) Test 05/16/17 07:07 Red Blood Count 3.08 M/uL (4.7-6.1) Mean Corpuscular Volume 95.1 fL (80-100) Mean Corpuscular Hemoglobin 32.1 pg (25-34) Mean Corpuscular Hemoglobin Concent 33.8 g/dl (32-36) RDW Standard Deviation 45.6 fL (36.4-46.3) RDW Coefficient of Variation 13.3 % (11.5-14.5) Mean Platelet Volume 8.7 fL (7.4-10.4) Prothrombin Time 30.1 SECONDS (9.0-12.0) Prothromb Time International Ratio 2.9 (0.9-1.1) Activated Partial Thromboplast Time 76.9 SECONDS (21.0-31.0) Partial Thromboplastin Ratio 3.0 Anion Gap 9.0 mmol/L (3-11) Est Creatinine Clear Calc Drug Dose 77.8 ml/min Estimated GFR () 100.3 Estimated GFR (Non- 86.5 BUN/Creatinine Ratio 25.1 (10-20) Calcium Level 10.2 mg/dl (8.5-10.1) Date/Time Source Procedure Growth Status 05/11/17 12:34 Blood Blood Culture - Final Coag Neg Staph Not Lugdunensis Coag Neg Staph Not Lugdunensis#2 Complete Hemoglobin A1c Test 05/12/17 06:30 Range/Units Estimated Average Glucose 160 mg/dl Hemoglobin A1c 7.2 H 4.5-5.6 % Medical Emergencies . Who to Call and When: Medical Emergencies: If at any time you feel your situation is an emergency, please call 911 immediately. . Non-Emergent Contact Non-Emergency issues call your: Primary Care Provider, Production Planning Supervisor Call Non-Emergent contact if: you have any medication questions . . "Provider Documentation" section prepared by Rakesh Sherwood. . VTE Core Measure Inpt VTE Proph given/why not?: Unfractionated heparin SQ, Warfarin (Coumadin) Reason no anticoag overlap I/P: Treatment provided - N/A Reason no anticoag overlap @DC: Treatment not indicated
--- NOTE | 2017-05-16 14:29 | Discharge Summary ---
Discharge Summary Date of Service May 16, 2017. Discharge Summary Admission Date: May 02, 2017 at 18:48 Discharge Date: May 16, 2017 Principal Diagnosis: Acute right lower extremity DVT with involvement of the popliteal vein, posterior tibial vein, and peroneal veins Secondary Diagnoses/Problems: PMH of traumatic intracranial hemorrhage (was seen by neurosurgery in [place]) , R orbital compartment syndrome s/p canthotomy Coumadin anticoagulation DM2 - HbA1c 7.2 Seizure Disorder Transaminitis Acute Kidney Injury - resolved Hyponatremia - likely secondary to dehydration, resolved HTN Depression - started on Lexapro and Ativan BID dosing Gout Flare COAG NEG STAPH NOT LUGDUNENSIS in 1 blood culture of a set of 4 blood cultures and patient was treated with vancomycin L Shoulder Pain Medication Reconciliation New Medications: Warfarin Sodium (Coumadin) 10 Mg Tab 10 MG PO DAILY for 10 Days, #10 TAB Escitalopram Oxalate (Escitalopram Oxalate) 10 Mg Tab 10 MG PO QAM for 30 Days, #30 TAB Folic Acid (Folic Acid) 1 Mg Tab 1 MG PO QAM for 30 Days, #30 TAB Levetiracetam (Keppra) 500 Mg Tab 500 MG PO BID for 30 Days, #60 TAB Lisinopril (Zestril) 10 Mg Tab 10 MG PO QAM for 30 Days, #30 TAB Multivitamins/Minerals (Certavite/Antioxidants) 1 Tab Tab 1 TAB PO QAM for 30 Days, #30 TAB Nutritional Supplements (Boost) 1 Liq Liq 1 CAN PO BIDM for 30 Days, #60 CAN Continued Medications: Acetaminophen (Tylenol) 500 Mg Tab 500 MG PO Q4 PRN for Pain Allopurinol (Allopurinol) 300 Mg Tab 300 MG PO DAILY Atorvastatin (Lipitor) 40 Mg Tab 40 MG PO QPM Bisacodyl (Bisacodyl) 10 Mg Sup 1 SUPP NC DAILY PRN for Constipation Docusate Sodium (Docusate Sodium) 100 Mg Cap 100 MG PO BID Gabapentin (Neurontin) 100 Mg Cap 100 MG PO Q8, CAP Levothyroxine Sodium (Synthroid) 25 Mcg Tab 25 MCG PO DAILY Magnesium Hydroxide (Milk of Magnesia) 30 Ml Susp 30 ML PO DAILY PRN for Constipation Melatonin (Melatonin) 5 Mg Tab 5 MG PO QPM Metoprolol Succinate (Toprol Xl) 50 Mg Tabcr 50 MG PO DAILY Neomycin/Polymyxin/Dexameth Oph (Maxitrol Oph) Oint 1 APPLN OPR QID Polyethylene Glycol 3350 (Miralax) 1 Pow Pow 17 GM PO QDL PRN for Constipation Sodium Phosphates (Fleet Enema Six Pack) 1 Brenda Brenda 1 DOSE NC DAILY PRN for Constipation Tamsulosin Hcl (Flomax) 0.4 Mg Cap 0.4 MG PO HS Thiamine Hcl (Vitamin B-1) 100 Mg Tab 50 MG PO QDB 1/2 OF A 100 MG TABLET Discontinued Medications: Lisinopril (Zestril) 20 Mg Tab 40 MG PO DAILY Oxycodone HCl (Oxycodone HCl) 5 Mg Tab 5 MG PO Q4 PRN for Pain SCALE 4-10 Phenytoin Sodium Extended (Dilantin) 30 Mg Cap 150 MG PO Q8 FIVE 30 MG CAPSULES Admission Information HPI (per Admitting provider): 77 year old male who was sent to the ED from [facility] for evaluation of possible DVT. On 04/08/17 patient was intoxicated and fell into a wood stove suffering injury to his right eye. He was also found to have traumatic, IPH right frontal lobe, Scattered Subarachnoid hemorrhage, Subdural Hemorrhage along bifrontal and right temporal regions that extends into right tentorium, and intraventricular Hemorrhage. Patient was treated at [facility]. Patient developed compartment syndrome of the right eye and had to undergo emergent canthotomy. His intracranial bleeding did not require surgical intervention. He was transferred to [facility] on 04/19. Providers there were concerned that he was not progressing in therapy and was also running low grade fevers. There was suspicion for DVT so he was sent to the ED for further evaluation. At the time of my exam, patient reports he is "feeling fair." He does not provide much more history. He does not appear to be in acute distress. Family who is at the bedside reports that his mental status has been waxing and waning since the accident. In the ED, patient is found to have acute right lower extremity DVT with involvement of the popliteal vein, posterior tibial vein, and peroneal veins. He is also found to have elevated LFTs and creatinine. Vitals are stable. Patient was given IVF. Physical Exam (per Admitting): General Appearance: WD/WN, no apparent distress Head: normocephalic, atraumatic Eyes: + pertinent finding (edema noted to right orbit, patient unable to open eye lid, small amount of drainage noted; left eye WNL) ENT: hearing grossly normal, + pertinent finding (mucous membranes moist) Neck: supple, no JVD, trachea midline Respiratory/Chest: lungs clear, normal breath sounds, no respiratory distress Cardiovascular: regular rate, rhythm, no edema, normal peripheral pulses Abdomen/GI: normal bowel sounds, non tender, soft, no organomegaly Extremities/Musculoskelatal: normal inspection, no calf tenderness, normal capillary refill Neurologic/Psych: alert (falls back to sleep quickly during exam, does not say many words), + disoriented (to time, place, and situation), + pertinent finding (no gross focal deficits noted) Skin: normal color, warm/dry Hospital Course This is a 77 year old male with a PMH of traumatic intracranial hemorrhage (was seen by neurosurgery in [place]), R orbital compartment syndrome s/p canthotomy , hx. of chronic alcoholism, DM2 and diabetic polyneuropathy, depression, HTN, HLD, seizure disorder, gout, BPH. Patient was sent from [facility] where he was getting rehab due to concern for Acute Right LE DVT (Acute right lower extremity DVT with involvement of the popliteal vein, posterior tibial vein, and peroneal veins) Dopplers on admission confirmed and acute R LE DVT Head CT on admission showed no intracranial bleeding after speaking with neurosurgery in [place] and ophthalmology - it was deemed safe to begin anticoagulation (case was discussed with Dr. Tafoya (neurosurgery) at [facility] - given negative head CT, bleeding risks are considered low case also discussed with Dr. Palm (ophthalmology) at [facility] - ok to anticoagulate with canthotomy history) Will need three months of anticoagulation Patient's INR 2.9 on 05/16/18, patient's coumadin decreased from 12.5 mg to 10 mg daily and IV heparin was discontinued. Patient should receive INR checks to ensure follow up INR in [facility] and post [facility] stay in order for Coumadin levels to be adjusted for INR goal of 2 to 3 DM2 - HbA1c 7.2 Seizure Disorder changed from Dilantin to Keppra Transaminitis - possibly due to Dilantin and initially neurology was consulted due to transitioning from Dilantin to Keppra, on Keppra only with transaminitis stabilized, was evaluated by gastroenterology and no sign of choledocholithiasis or biliary obstruction - possible sludge. will need outpatient lab monitoring Acute Kidney Injury - resolved Hyponatremia - likely secondary to dehydration, resolved HTN - BP controlled, continue Lisinopril and Metoprolol Succinate Depression - started on Lexapro and Ativan BID dosing Gout Flare - was treated with colchicine 0.6mg BID COAG NEG STAPH NOT LUGDUNENSIS in 1 blood culture of a set of 4 blood cultures and patient was treated with vancomycin L Shoulder Pain L shoulder radiograph - no acute fractures, likely chronically rotator cuff tear orthopedic input - possible steroid injection, no surgical intervention PT/OT - plan to d/c to rehab When patient is discharged from [facility], will need follow up appointments vs re-scheduling for 05/19/2017 1:00 PM Harish Ernandez MD [facility] [place] [facility], Wicho Haque DO, Joe, Opthalmology Call [phone] for [facility] appointment line Total time spent on discharge = 60 minutes This includes examination of the patient, discharge planning, medication reconciliation, and communication with other providers. Discharge Instructions Instructions / Follow-Up Medication Instructions: Warfarin is a medicine prescribed to prevent blood clots Warfarin will thin your blood and help prevent new clots Take your medications exactly as directed Never skip a dose. Never take a double dose. If you miss a dose, take it as soon as you remember It is important for your doctor to monitor your prothrombin time (PT). This is a lab test Keep your appointment for lab tests Risk of Adverse Drug Reactions and Interactions: Warfarin increases your risk of bleeding The food you eat and other medications you take can affect how Warfarin works in your body Ask your doctor about daily aspirin therapy It is very important to talk with your doctor about all of the other medicines, antibiotics, vitamins or herbal products that you are taking All of your medication must be approved by your doctor, including new medicines, as well as medicines you have taken before you started taking Warfarin Diet: In order for Warfarin to work properly, it is important to keep your intake of Vitamin K as consistent as possible You should avoid any sudden change in Vitamin K intake Report any significant changes in your diet or weight to your doctor Call your Primary Care doctor if you experience any of the following: Swelling or Pain in your leg Sudden, continuous pain deep in a muscle Pain that worsens when you are active or when you stand still for a long time Chest Pain Sudden Shortness of Breath Rapid or pounding heart beat Fainting Dizziness Cough with blood or bloody sputum Sweating more than normal Bruises Heavy or uncontrolled bleeding Blood in your urine, stool or vomit Black or tarry stools Caring for Your Self at Home: Avoid sitting, standing or lying down for long periods without moving your legs and feet When traveling by car, stop to get out and move around at least once every 3 hours On long airplane, train or bus rides, get up and move around when possible If you can't get up, wiggle your toes and tighten your calves to keep your blood moving Follow Up: It is important for you to keep your follow up appointments with your medical provider. This is a 77 year old male with a PMH of traumatic intracranial hemorrhage (was seen by neurosurgery in [place]), R orbital compartment syndrome s/p canthotomy , hx. of chronic alcoholism, DM2 and diabetic polyneuropathy, depression, HTN, HLD, seizure disorder, gout, BPH. Patient was sent from [facility] where he was getting rehab due to concern for Acute Right LE DVT (Acute right lower extremity DVT with involvement of the popliteal vein, posterior tibial vein, and peroneal veins) Dopplers on admission confirmed and acute R LE DVT Head CT on admission showed no intracranial bleeding after speaking with neurosurgery in [place] and ophthalmology - it was deemed safe to begin anticoagulation (case was discussed with Dr. Tafoya (neurosurgery) at [facility] - given negative head CT, bleeding risks are considered low case also discussed with Dr. Palm (ophthalmology) at [facility] - ok to anticoagulate with canthotomy history) Will need three months of anticoagulation Patient's INR 2.9 on 05/16/18, patient's coumadin decreased from 12.5 mg to 10 mg daily and IV heparin was discontinued. Patient should receive INR checks to ensure follow up INR in [facility] and post [facility] stay in order for Coumadin levels to be adjusted for INR goal of 2 to 3 DM2 - HbA1c 7.2, on sliding scale insulin in the hospital Seizure Disorder changed from Dilantin to Keppra Transaminitis - possibly due to Dilantin and initially neurology was consulted due to transitioning from Dilantin to Keppra, on Keppra only with transaminitis stabilized, was evaluated by gastroenterology and no sign of choledocholithiasis or biliary obstruction - possible sludge. will need outpatient lab monitoring Acute Kidney Injury - resolved Hyponatremia - likely secondary to dehydration, resolved HTN - BP controlled, continue Lisinopril and Metoprolol Succinate Depression - started on Lexapro and Ativan BID dosing Gout Flare - was treated with colchicine 0.6mg BID COAG NEG STAPH NOT LUGDUNENSIS in 1 blood culture of a set of 4 blood cultures and patient was treated with vancomycin L Shoulder Pain L shoulder radiograph - no acute fractures, likely chronically rotator cuff tear orthopedic input - possible steroid injection, no surgical intervention PT/OT - plan to d/c to rehab When patient is discharged from [facility], will need follow up appointments vs re-scheduling for 05/19/2017 1:00 PM Harish Ernandez MD [facility] Ophthalmology, [place] Lex Palm, , Wciho Haque DO, Joe, Opthalmology
[2017-05-16 15:42] VITALS: BP 134/75; PULSE 70; TEMP 36.8; O2SAT 95
[2017-05-16] MEDS ORDERED: WARFARIN SOD 5 MG TAB PO SCH (16:00)
== END 2017-05-16 18:10 | DRG 300 ==
LOC: C.EDC 14:03 → C.2T 18:48 → EDBEDREQ 18:55 → ENRESERV 19:31 → C.2T 05-04 21:35 → ENRESERV 05-05 12:01 → C.MS4W 05-05 12:54
PROVIDERS: ADMIT Family Medicine; ATTEND Hospitalist
DX: I82.491 Acute embolism and thrombosis of other specified deep vein of right lower extremity (principal); N17.9 Acute kidney failure, unspecified; E87.1 Hypo-osmolality and hyponatremia; I82.441 Acute embolism and thrombosis of right tibial vein; I82.431 Acute embolism and thrombosis of right popliteal vein; S06.369S Traumatic hemorrhage of cerebrum, unspecified, with loss of consciousness of unspecified duration, sequela; S02.19XS Other fracture of base of skull, sequela; S05.11XS Contusion of eyeball and orbital tissues, right eye, sequela; S42.202S Unspecified fracture of upper end of left humerus, sequela; N40.0 Benign prostatic hyperplasia without lower urinary tract symptoms; M75.102 Unspecified rotator cuff tear or rupture of left shoulder, not specified as traumatic; F32.9 Major depressive disorder, single episode, unspecified; I10 Essential (primary) hypertension; E11.40 Type 2 diabetes mellitus with diabetic neuropathy, unspecified; M10.9 Gout, unspecified; G40.909 Epilepsy, unspecified, not intractable, without status epilepticus; E86.0 Dehydration; Z87.891 Personal history of nicotine dependence; B95.8 Unspecified staphylococcus as the cause of diseases classified elsewhere; F10.10 Alcohol abuse, uncomplicated; R74.0 Nonspecific elevation of levels of transaminase and lactic acid dehydrogenase [LDH]; T42.0X5A Adverse effect of hydantoin derivatives, initial encounter; W19.XXXS Unspecified fall, sequela; Y92.89 Other specified places as the place of occurrence of the external cause